=== PATIENT | male | born 1960 | race Caucasian/White ===

== ENCOUNTER 2022-04-24 15:51 | Inpatient (IN) ==
[2022-04-24 18:42] LABS: Appearance Urine Cloudy (Clear); Blood Urine Negative (Negative); Color Urine Orange; Epithelial Cell Urine Auto >30 /lpf (0-5); Glucose Urine UA Trace (Negative); Ketones Urine 1+ (Negative); Leukocyte Esterase Urine 1+ (Negative); Nitrite Urine Positive (Negative); Protein Urine 1+ (Negative); RBC Urine Automated 0-4 /hpf (0-4); Specific Gravity Urine 1.029 (1.000-1.030); Urobilinogen Urine Negative (Negative); pH Urine 5.5 (4.5-7.5)
[2022-04-24 18:46] LABS: Bilirubin Urine 3+ (Negative)
[2022-04-24 18:56] LABS: BUN Creatinine Ratio 12.6 (10-20); Calcium 9.6 mg/dl (8.5-10.1); Creatinine Clr Calc Pharmacy 47.1 ml/min; Est GFR (Non-African American) 41.4 ml/min; Potassium 4.8 mmol/L (3.5-5.1)
[2022-04-24 19:00] LABS: Albumin Globulin Ratio 1.5 (0.9-2); Albumin Level 4.8 gm/dl (3.4-5.0); Bilirubin,Total 3.2 mg/dl (0.2-1.0); Globulin 3.3 gm/dl (2.5-4.0); Total Protein 8.1 gm/dl (6.0-8.3)
[2022-04-24 19:20] LABS: Mucus Urine Present (None Prsent)
[2022-04-24 19:21] LABS: Cast Urine Automated >30 /lpf (0-5)
[2022-04-24 19:22] LABS: Calcium Oxalate Crystals Urine Present (None Prsent)
[2022-04-24 19:25] LABS: Amorphous Sediment Urine Present (None Prsent); Bacteria Urine Automated 1+ (Negative)
[2022-04-24] MEDS ORDERED: SODIUM CHLORIDE 0.9% 1000ML 1,000 ML IV STA (19:28)
[2022-04-24] MEDS ORDERED: ONDANSETRON INJ 2 MG/ML 2 ML VIAL IV STA (19:28)
[2022-04-24] MEDS ORDERED: MoRPHine SULFATE 4 MG/ML 1 ML CARP\\VIAL IV PRN (19:28)
[2022-04-24] MEDS ORDERED: PIPERACILLIN/TAZOBACTAM 4.5 GM/120 ML BAG IV ONE (19:30)
--- NOTE | 2022-04-24 19:43 | Emergency Department Note ---
Impression & Plan Acute pancreatitis, Abdominal pain, acute, epigastric, Abnormal LFTs, BEN (acute kidney injury) ED Provider Note NAME: JAMES AMARO AGE: 62 SEX: M : 1960 ARRIVES VIA: Walk-In INFORMANT: Patient, ED PROVIDER(S): Raffaele Harvey DO CHIEF COMPLAINT: Abdominal pain HPI: The patient is a 62-year-old male who presented to the emergency department for an evaluation of abdominal pain. The patient describes diffuse abdominal p ain which goes to his back. He states the symptoms started over the last 48 hours. He does not use significant amounts of alcohol. He has not been seen by his family doctor for the symptoms. He notices no fever but has had nausea. He denies having any black or bloody bowels. He said no surgery on his abdomen in the past. He denies having any swelling in the legs. He states pain is moderate to severe and worsens with ambulation as well as palpation over the upper abdomen. The patient still has his gallbladder. ROS: See above HPI for pertinent positives & negatives. A total of 10 systems reviewed and were otherwise negative. PAST MEDICAL HISTORY: See Below PAST SURGICAL HISTORY: See Below FAMILY HISTORY: See Below SOCIAL HISTORY: See Below HOME MEDICATIONS: See Below ALLERGIES: See Below VITALS: See Below PHYSICAL EXAMINATION: GENERAL: The patient is awake and alert. The patient is very anxious appearing and appears to be in significant pain. EYES: The conjunctivae are clear. The pupils are round and reactive. EARS, NOSE, MOUTH AND THROAT: The nose is without any evidence of any deformity. NECK: The neck is nontender and supple. RESPIRATORY: Normal respiratory effort is noted there is no evidence of wheezing rhonchi or rales CARDIOVASCULAR: Regular rate and rhythm noted there no murmurs rubs or gallops normal S1 normal S2. GASTROINTESTINAL: The abdomen is distended and diffusely tender. There is guarding in the upper abdomen. MUSCULOSKELETAL/EXTREMITIES: There is no evidence of gross deformity full range of motion is noted in the hips and shoulders. SKIN: There is no obvious evidence of any rash. There are no petechiae, pallor or cyanosis noted. NEUROLOGIC: Patient is awake alert and oriented x3. MEDICAL DECISION MAKING: The patient is a 62-year-old male who presented to the emergency department for an evaluation of abdominal pain. The patient had very significant abdominal pain and on physical exam appear to have guarding. The patient was found to have an elevated white blood cell count as well as abnormal labs that would suggest pancreatitis with a gallstone source. The patient CT did not show any signs of biliary pathology however significant pancreatitis was noted. Patient was treated with IV fluids and IV pain medication. He was also treated with IV antibiotics. On reevaluation he was only minimally improved. I discussed the patient's condition with the on-call [facility] hospitalist. They have agreed to evaluate the patient in the emergency department for further management and disposition. Likely the patient will require further work-up as well as pos sible evaluation by gastroenterology and/or surgery. Triage Nursing notes reviewed. Prior medical records reviewed Vital Signs: reviewed and remarkable for elevated blood pressure. Differential diagnosis: Etiologies such as appendicitis, diverticulitis, obstruction, inflammatory bowel disease, renal colic, PUD, biliary pathology, pancreatitis, mesenteric ischemia, aortic pathology, infections, genitourinary, UTI, perforated viscus, as well as others were entertained. ER treatment provided: See below Diagnostics interpreted by me: ECG: EKG was obtained in the emergency department. My interpretation is normal sinus rhythm at 85 bpm. There is no ectopy. There is no acute ST segment abnormalities noted. Cardiac Monitoring: An order was placed for continuous cardiac monitoring. The monitor shows a rate of 82 bpm with sinus rhythm. Laboratory studies: As stated above and show below. Imaging studies: See below Consultation(s): I discussed this case with Dr. Zavaleta who is on-call for the [facility] list group. Past Med/Surg History Medical History Hypertension Surgical History History of back surgery Social History Smoking Status: Never smoker marital status: Single Current Living Situation: Alone current occupational status: retired Feels Safe at Home: Yes Allergies Allergies Allergy/AdvReac Type Severity Reaction Status Date / Time amoxicillin [From Augmentin] Allergy angioedema Verified 04/24/22 20:38 clavulanic acid Allergy angioedema Verified 04/24/22 20:38 [From Augmentin] Home Meds Home Medications Medication Instructions Recorded Confirmed aspirin 81 mg tablet,delayed 81 mg PO QAM 09/04/20 04/24/22 release lisinopril 40 mg tablet 40 mg PO QAM 09/04/20 04/24/22 metoprolol succinate 50 mg 50 mg PO QAM 09/04/20 04/24/22 tablet,extended release 24 hr cyclobenzaprine 10 mg tablet 10 mg PO TID 04/24/22 04/24/22 Results & Data (ED) Vital Signs Vital Signs - 24 hr 04/24/22 16:29 04/24/22 19:27 04/24/22 20:21 Temperature 36.6 C 36.5 C Temperature Source Temporal Artery Scan Oral Pulse Rate 63 86 Pulse Rate [Apical] 91 H Pulse Rate from SpO2 Sensor Pulse Rhythm [Apical] Regular Respiratory Rate 20 20 Respiratory Effort / Characteristics Non-Labored Respiratory Depth Normal Shallow Blood Pressure 100/70 199/90 H Blood Pressure [Right Arm] 191/114 H Blood Pressure Mean 80 Blood Pressure Mean [Right Arm] 139 Pulse Oximetry 97 98 Oxygen Delivery Method Room Air Room Air Sepsis Recent Fever Within 48 Hours No Sepsis New/Unexplained Change in Mental Status No Sepsis Action Taken by Nursing No Action Required 04/24/22 20:33 04/24/22 19:27 04/24/22 19:30 Temperature Temperature Source Pulse Rate 94 H 92 H Pulse Rate [Apical] Pulse Rate from SpO2 Sensor 94 H 92 H Pulse Rhythm [Apical] Respiratory Rate 16 19 Respiratory Effort / Characteristics Respiratory Depth Blood Pressure Blood Pressure [Right Arm] Blood Pressure Mean Blood Pressure Mean [Right Arm] Pulse Oximetry 99 97 98 Oxygen Delivery Method Room Air Sepsis Recent Fever Within 48 Hours Sepsis New/Unexplained Change in Mental Status Sepsis Action Taken by Nursing 04/24/22 20:00 04/24/22 20:01 04/24/22 20:01 Temperature Temperature Source Pulse Rate 80 82 Pulse Rate [Apical] Pulse Rate from SpO2 Sensor 80 82 Pulse Rhythm [Apical] Respiratory Rate 19 17 Respiratory Effort / Characteristics Respiratory Depth Blood Pressure 199/90 H Blood Pressure [Right Arm] Blood Pressure Mean 126 Blood Pressure Mean [Right Arm] Pulse Oximetry 96 99 Oxygen Delivery Method Sepsis Recent Fever Within 48 Hours Sepsis New/Unexplained Change in Mental Status Sepsis Action Taken by Nursing 04/24/22 20:30 04/24/22 21:00 04/24/22 21:00 Temperature Temperature Source Pulse Rate 74 85 Pulse Rate [Apical] Pulse Rate from SpO2 Sensor 75 86 Pulse Rhythm [Apical] Respiratory Rate 17 21 Respiratory Effort / Characteristics Respiratory Depth Blood Pressure 151/90 H Blood Pressure [Right Arm] Blood Pressure Mean 110 Blood Pressure Mean [Right Arm] Pulse Oximetry 99 97 Oxygen Delivery Method Sepsis Recent Fever Within 48 Hours Sepsis New/Unexplained Change in Mental Status Sepsis Action Taken by Nursing 04/24/22 21:24 04/24/22 21:24 04/24/22 21:30 Temperature Temperature Source Pulse Rate 85 79 Pulse Rate [Apical] Pulse Rate from SpO2 Sensor 84 79 Pulse Rhythm [Apical] Respiratory Rate 14 16 Respiratory Effort / Characteristics Respiratory Depth Blood Pressure 150/92 H Blood Pressure [Right Arm] Blood Pressure Mean 111 Blood Pressure Mean [Right Arm] Pulse Oximetry 95 95 Oxygen Delivery Method Sepsis Recent Fever Within 48 Hours Sepsis New/Unexplained Change in Mental Status Sepsis Action Taken by Nursing 04/24/22 22:00 04/24/22 22:00 Temperature Temperature Source Pulse Rate 82 Pulse Rate [Apical] Pulse Rate from SpO2 Sensor 82 Pulse Rhythm [Apical] Respiratory Rate 13 Respiratory Effort / Characteristics Respiratory Depth Blood Pressure 199/97 H Blood Pressure [Right Arm] Blood Pressure Mean 131 Blood Pressure Mean [Right Arm] Pulse Oximetry 97 Oxygen Delivery Method Sepsis Recent Fever Within 48 Hours Sepsis New/Unexplained Change in Mental Status Sepsis Action Taken by [facility] Medications Current Medication List: was personally reviewed by me Laboratory Data Attestation: I reviewed the patient's lab results. Result diagrams: 04/24/22 18:15 04/24/22 18:15 Lab Results 04/24/22 04/24/22 04/24/22 Range/Units 16:33 18:15 18:15 WBC 12.09 H (4.8-10.8) K/ul RBC 6.50 H (4.63-6.08) M/uL Hgb 19.8 H (14.0-18.0) g/dl Hct 57.5 H (40.1-51.0) % MCV 88.5 (80.0-100.0) fL MCH 30.5 (25.0-34.0) pg MCHC 34.4 (32.0-36.0) g/dL RDW Std Deviation 42.4 (36.4-46.3) fL RDW Coeff of Fred 13.3 (11.5-14.5) % Plt Count 216 (130-400) K/uL MPV 11.6 (9.4-12.4) fL Immature Gran % (Auto) 0.5 % Neut % (Auto) 92.2 % Lymph % (Auto) 2.6 % [place] % (Auto) 4.3 % Eos % (Auto) 0.1 % Baso % (Auto) 0.3 % Neut # (Auto) 11.14 H (1.4-6.5) K/uL Lymph # (Auto) 0.32 L (1.2-3.4) K/uL [place] # (Auto) 0.52 (0.24-0.82) K/uL Eos # (Auto) 0.01 (0-0.50) K/uL Baso # (Auto) 0.04 (0-0.2) K/uL Immature Gran # (Auto) 0.06 H (0.00-0.02) K/uL PT INR APTT PTT Ratio Sodium 135 L (136-145) mmol/L Potassium 4.8 (3.5-5.1) mmol/L Chloride 99 (98-107) mmol/L Carbon Dioxide 19 L (21-32) mmol/L Anion Gap 17 H (3-11) BUN 22 (6-23) mg/dl Creatinine 1.74 H (0.6-1.4) mg/dl Est Cr Clr Drug Dosing 47.1 ml/min Est GFR ( Amer) 48.0 ml/min Est GFR (Non-Af Amer) 41.4 ml/min BUN/Creatinine Ratio 12.6 (10-20) Glucose 237 H (70-99(Fasting)) mg/dl Calcium 9.6 (8.5-10.1) mg/dl Magnesium 2.0 (1.7-2.4) mg/dl Total Bilirubin 3.2 H (0.2-1.0) mg/dl Direct Bilirubin (0-0.2) mg/dl AST 306 H (13-39) U/L ALT 684 H (7-52) U/L Alkaline Phosphatase 192 H (34-104) U/L Troponin I High Sens (0-20) pg/ml Total Protein 8.1 (6.0-8.3) gm/dl Albumin 4.8 (3.4-5.0) gm/dl Globulin 3.3 (2.5-4.0) gm/dl Albumin/Globulin Ratio 1.5 (0.9-2) Triglycerides (0-150) mg/dl Lipase 2336 H (11-82) U/L Urine Color Urine Appearance (Clear) Urine pH (4.5-7.5) Ur Specific [place] (1.000-1.030) Urine Protein (Negative) Urine Glucose (UA) (Negative) Urine Ketones (Negative) Urine Blood (Negative) Urine Nitrite (Negative) Urine Bilirubin (Negative) Urine Urobilinogen (Negative) Ur Leukocyte Esterase (Negative) Urine WBC (Auto) (0-5) /hpf Urine RBC (Auto) (0-4) /hpf U Hyaline Cast (Auto) (0-5) /lpf U Epithel Cells (Auto) (0-5) /lpf Urine Bacteria (Auto) (Negative) Calcium Oxalate Crystal (None Prsent) Amorphous Sediment (None Prsent) WBC Casts (0) /lpf Urine Mucus (None Prsent) SARS-CoV-2, RNA, NAAT (NEGATIVE) 04/24/22 04/24/22 04/24/22 Range/Units 18:15 20:30 21:04 WBC (4.8-10.8) K/ul RBC (4.63-6.08) M/uL Hgb (14.0-18.0) g/dl Hct (40.1-51.0) % MCV (80.0-100.0) fL MCH (25.0-34.0) pg MCHC (32.0-36.0) g/dL RDW Std Deviation (36.4-46.3) fL RDW Coeff of Fred (11.5-14.5) % Plt Count (130-400) K/uL MPV (9.4-12.4) fL Immature Gran % (Auto) % Neut % (Auto) % Lymph % (Auto) % [place] % (Auto) % Eos % (Auto) % Baso % (Auto) % Neut # (Auto) (1.4-6.5) K/uL Lymph # (Auto) (1.2-3.4) K/uL [place] # (Auto) (0.24-0.82) K/uL Eos # (Auto) (0-0.50) K/uL Baso # (Auto) (0-0.2) K/uL Immature Gran # (Auto) (0.00-0.02) K/uL PT Cancelled INR Cancelled APTT Cancelled PTT Ratio Cancelled Sodium (136-145) mmol/L Potassium (3.5-5.1) mmol/L Chloride (98-107) mmol/L Carbon Dioxide (21-32) mmol/L Anion Gap (3-11) BUN (6-23) mg/dl Creatinine (0.6-1.4) mg/dl Est Cr Clr Drug Dosing ml/min Est GFR ( Amer) ml/min Est GFR (Non-Af Amer) ml/min BUN/Creatinine Ratio (10-20) Glucose (70-99(Fasting)) mg/dl Calcium (8.5-10.1) mg/dl Magnesium (1.7-2.4) mg/dl Total Bilirubin (0.2-1.0) mg/dl Direct Bilirubin (0-0.2) mg/dl AST (13-39) U/L ALT (7-52) U/L Alkaline Phosphatase (34-104) U/L Troponin I High Sens (0-20) pg/ml Total Protein (6.0-8.3) gm/dl Albumin (3.4-5.0) gm/dl Globulin (2.5-4.0) gm/dl Albumin/Globulin Ratio (0.9-2) Triglycerides (0-150) mg/dl Lipase (11-82) U/L Urine Color [place] Urine Appearance Cloudy A (Clear) Urine pH 5.5 (4.5-7.5) Ur Specific [place] 1.029 (1.000-1.030) Urine Protein 1+ H (Negative) Urine Glucose (UA) Trace H (Negative) Urine Ketones 1+ H (Negative) Urine Blood Negative (Negative) Urine Nitrite Positive A (Negative) Urine Bilirubin 3+ H (Negative) Urine Urobilinogen Negative (Negative) Ur Leukocyte Esterase 1+ H (Negative) Urine WBC (Auto) 10-30 H (0-5) /hpf Urine RBC (Auto) 0-4 (0-4) /hpf U Hyaline Cast (Auto) >30 H (0-5) /lpf U Epithel Cells (Auto) >30 H (0-5) /lpf Urine Bacteria (Auto) 1+ H (Negative) Calcium Oxalate Crystal Present A (None Prsent) Amorphous Sediment Present A (None Prsent) WBC Casts 10-20 H (0) /lpf Urine Mucus Present A (None Prsent) SARS-CoV-2, RNA, NAAT NEGATIVE (NEGATIVE) 04/24/22 04/24/22 Range/Units 21:04 21:42 WBC (4.8-10.8) K/ul RBC (4.63-6.08) M/uL Hgb (14.0-18.0) g/dl Hct (40.1-51.0) % MCV (80.0-100.0) fL MCH (25.0-34.0) pg MCHC (32.0-36.0) g/dL RDW Std Deviation (36.4-46.3) fL RDW Coeff of Fred (11.5-14.5) % Plt Count (130-400) K/uL MPV (9.4-12.4) fL Immature Gran % (Auto) % Neut % (Auto) % Lymph % (Auto) % [place] % (Auto) % Eos % (Auto) % Baso % (Auto) % Neut # (Auto) (1.4-6.5) K/uL Lymph # (Auto) (1.2-3.4) K/uL [place] # (Auto) (0.24-0.82) K/uL Eos # (Auto) (0-0.50) K/uL Baso # (Auto) (0-0.2) K/uL Immature Gran # (Auto) (0.00-0.02) K/uL PT 10.9 INR 1.0 APTT 24.0 PTT Ratio 0.9 Sodium (136-145) mmol/L Potassium (3.5-5.1) mmol/L Chloride (98-107) mmol/L Carbon Dioxide (21-32) mmol/L Anion Gap (3-11) BUN (6-23) mg/dl Creatinine (0.6-1.4) mg/dl Est Cr Clr Drug Dosing ml/min Est GFR ( Amer) ml/min Est GFR (Non-Af Amer) ml/min BUN/Creatinine Ratio (10-20) Glucose (70-99(Fasting)) mg/dl Calcium (8.5-10.1) mg/dl Magnesium (1.7-2.4) mg/dl Total Bilirubin (0.2-1.0) mg/dl Direct Bilirubin 1.1 H (0-0.2) mg/dl AST (13-39) U/L ALT (7-52) U/L Alkaline Phosphatase (34-104) U/L Troponin I High Sens 11.5 (0-20) pg/ml Total Protein (6.0-8.3) gm/dl Albumin (3.4-5.0) gm/dl Globulin (2.5-4.0) gm/dl Albumin/Globulin Ratio (0.9-2) Triglycerides 95 (0-150) mg/dl Lipase (11-82) U/L Urine Color Urine Appearance (Clear) Urine pH (4.5-7.5) Ur Specific [place] (1.000-1.030) Urine Protein (Negative) Urine Glucose (UA) (Negative) Urine Ketones (Negative) Urine Blood (Negative) Urine Nitrite (Negative) Urine Bilirubin (Negative) Urine Urobilinogen (Negative) Ur Leukocyte Esterase (Negative) Urine WBC (Auto) (0-5) /hpf Urine RBC (Auto) (0-4) /hpf U Hyaline Cast (Auto) (0-5) /lpf U Epithel Cells (Auto) (0-5) /lpf Urine Bacteria (Auto) (Negative) Calcium Oxalate Crystal (None Prsent) Amorphous Sediment (None Prsent) WBC Casts (0) /lpf Urine Mucus (None Prsent) SARS-CoV-2, RNA, NAAT (NEGATIVE) Administered Medications Lactated Ringer's (Lr) 1,000 mls @ 200 mls/hr IV .Q5H ONE Stop: 04/25/22 01:03 Last Admin: 04/24/22 20:21 Dose: 200 mls/hr Documented By: GUADALUPE Morphine Sulfate (Morphine Sulfate 4 Mg/Ml 1 Ml Carp\Vial) 4 mg IV Q15M PRN PRN Reason: Pain Stop: 05/08/22 19:27 Last Admin: 04/24/22 19:40 Dose: 4 mg Documented By: GUADALUPE Discontinued Medications Hydromorphone HCl (Hydromorphone Inj 0.5 Mg/0.5 Ml Syr) 0.5 mg IV NOW STA Stop: 04/24/22 21:18 Last Admin: 04/24/22 21:25 Dose: 0.5 mg Documented By: GUADALUPE Sodium Chloride (Nss 1000ml) 1,000 mls @ 999 mls/hr IV .Q1H1M STA Stop: 04/24/22 20:28 Last Infusion: 04/24/22 21:07 Dose: 0 mls/hr Documented By: Admin: 04/24/22 19:39 Dose: 999 mls/hr Documented By: GUADALUPE Piperacillin Sod/Tazobactam Sod (Zosyn) 4.5 gm in 120 mls @ 240 mls/hr IV NOW ONE Stop: 04/24/22 19:59 Last Infusion: 04/24/22 20:23 Dose: 0 mls/hr Documented By: Admin: 04/24/22 19:39 Dose: 240 mls/hr Documented By: GUADALUPE Metoprolol Tartrate (Metoprolol Tartrate 1 Mg/Ml Vial) 5 mg IV NOW STA Stop: 04/24/22 20:04 Last Admin: 04/24/22 20:21 Dose: 5 mg Documented By: GUADALUPE Ondansetron HCl (Ondansetron Inj 2 Mg/Ml 2 Ml Vial) 4 mg IV NOW STA Stop: 04/24/22 19:29 Last Admin: 04/24/22 19:39 Dose: 4 mg Documented By: GUADALUPE Imaging Data Radiologist's Impression: Abdomen/Pelvis CT 04/24/22 19:28 CT abd pelvis wo con CLINICAL HISTORY: abd pain TECHNIQUE: Helical axial images of the abdomen and pelvis were obtained. Automated dose lowering techniques and/or adjustment according to patient size were utilized for this exam. This exam was performed without intravenous contrast. CT DOSE: 646.38 mGy.cm COMPARISON: None available at the time of this dictation. FINDINGS: Lower chest: Bibasilar atelectasis versus scarring is seen. Liver: Unremarkable. No focal lesions are seen. Gallbladder and biliary tree: No calcified gallstones. Normal caliber wall. No intra- or extrahepatic biliary ductal dilation. Pancreas: Peripancreatic stranding is seen. Edema is seen in the distal pancreas. Spleen: Unremarkable. Adrenals: Unremarkable. Kidneys and ureters: Perinephric stranding is noted bilaterally. Nonobstructive nephrolithiasis is seen. Bladder: Unremarkable. Reproductive organs: Prostatic calcifications are seen which may represent prior hemorrhage or granulomatous disease. Bowel: Diverticulosis is seen without evidence of diverticulitis. The appendix is normal. There is a small hiatal hernia. Lymph nodes Retroperitoneal: Subcentimeter lymph nodes are noted. Pelvic: Unremarkable. Mesenteric: Unremarkable. Peritoneum: Prominent fat stranding is seen about the pancreas. There is a small amount of free fluid in the abdomen. Vessels: Atherosclerotic calcifications are seen. Abdominal wall: Unremarkable. Bones: Degenerative changes in the visualized spine. IMPRESSION: Findings are compatible with acute pancreatitis. No acute peripancreatic fluid collections are seen. ACT 112: Negative or not required by law. Electronically signed by: Pedro Tellez M.D. 04/24/2022 8:05 PM Chest X-Ray 04/24/22 19:29 XR chest 1V portable CLINICAL HISTORY: abd TECHNIQUE: Single frontal radiograph of the chest was obtained. Comparison: Comparison is made to chest radiograph 09/04/2020 FINDINGS: No lines and tubes are seen. The cardiomediastinal silhouette is normal. Lungs are underinflated but clear. Focal atelectasis at the left lower lung. No evidence of pleural effusion or pneumothorax. IMPRESSION: No acute chest disease. ACT 112: Negative or not required by law. Electronically signed by: Pedro Tellez M.D. 04/24/2022 7:45 PM Discharge Plan Visit Data Chief Complaint: Abdominal Pain Stated Complaint: SEVERE ABD PAIN, VOMITTING, DIARRHEA ED Provider: Raffaele Harvey Discharge Problem: Acute pancreatitis, Abdominal pain, acute, epigastric, Abnormal LFTs, BEN (acute kidney injury) Patient Disposition: Admitted As Inpatient Discharge Instructions Interventions: ED Discharge Assessment Last Done: 04/24/22 22:18 Forms Stand Alone Forms: [facility] Prescriptions Prescriptions: No Action metoprolol succinate 50 mg tablet extended release 24 hr 50 mg PO QAM aspirin 81 mg tablet,delayed release (DR/EC) 81 mg PO QAM lisinopril 40 mg tablet 40 mg PO QAM cyclobenzaprine 10 mg Tablet 10 mg PO TID Referrals Referrals: Jerome Schultz DO [Primary Care Provider] -
--- NOTE | 2022-04-24 19:47 | XRay Report ---
XR chest 1V portable CLINICAL HISTORY: abd TECHNIQUE: Single frontal radiograph of the chest was obtained. Comparison: Comparison is made to chest radiograph 09/04/2020 FINDINGS: No lines and tubes are seen. The cardiomediastinal silhouette is normal. Lungs are underinflated but clear. Focal atelectasis at the left lower lung. No evidence of pleural effusion or pneumothorax. IMPRESSION: No acute chest disease. ACT 112: Negative or not required by law. Electronically signed by: Pedro Tellez M.D. 04/24/2022 7:45 PM
[2022-04-24] MEDS ORDERED: METOPROLOL TARTRATE 1 MG/ML VIAL IV STA (20:03)
[2022-04-24] MEDS ORDERED: LACTATED RINGER'S 1,000 ML IV ONE (20:04)
--- NOTE | 2022-04-24 20:07 | CT Scan Report ---
CT abd pelvis wo con CLINICAL HISTORY: abd pain TECHNIQUE: Helical axial images of the abdomen and pelvis were obtained. Automated dose lowering tech niques and/or adjustment according to patient size were utilized for this exam. This exam was perfor med without intravenous contrast. CT DOSE: 646.38 mGy.cm COMPARISON: None available at the time of this dictation. FINDINGS: Lower chest: Bibasilar atelectasis versus scarring is seen. Liver: Unremarkable. No focal lesions are seen. Gallbladder and biliary tree: No calcified gallstones. Normal caliber wall. No intra- or extrahepatic biliary ductal dilation. Pancreas: Peripancreatic stranding is seen. Edema is seen in the distal pancreas. Spleen: Unremarkable. Adrenals: Unremarkable. Kidneys and ureters: Perinephric stranding is noted bilaterally. Nonobstructive nephrolithiasis is se en. Bladder: Unremarkable. Reproductive organs: Prostatic calcifications are seen which may represent prior hemorrhage or granul omatous disease. Bowel: Diverticulosis is seen without evidence of diverticulitis. The appendix is normal. There is a small hiatal hernia. Lymph nodes Retroperitoneal: Subcentimeter lymph nodes are noted. Pelvic: Unremarkable. Mesenteric: Unremarkable. Peritoneum: Prominent fat stranding is seen about the pancreas. There is a small amount of free fluid in the abdomen. Vessels: Atherosclerotic calcifications are seen. Abdominal wall: Unremarkable. Bones: Degenerative changes in the visualized spine. IMPRESSION: Findings are compatible with acute pancreatitis. No acute peripancreatic fluid collections are seen. ACT 112: Negative or not required by law. Electronically signed by: Pedro Tellez M.D. 04/24/2022 8:05 PM
[2022-04-24 20:18] LABS: Hematocrit (blood only) 57.5 % (40.1-51.0); Hemoglobin 19.8 g/dl (14.0-18.0); Mean Corpuscular Hemoglobin 30.5 pg (25.0-34.0); Mean Corpuscular Hgb Conc 34.4 g/dL (32.0-36.0); Mean Corpuscular Volume 88.5 fL (80.0-100.0); Mean Platelet Volume 11.6 fL (9.4-12.4); Platelet Count 216 K/uL (130-400); RDW Coefficient of Variation 13.3 % (11.5-14.5); RDW Standard Deviation 42.4 fL (36.4-46.3); White Blood Count 12.09 K/ul (4.8-10.8)
[2022-04-24 20:19] LABS: Basophils # (auto) 0.04 K/uL (0-0.2); Basophils % (auto) 0.3 %; Eosinophils # (auto) 0.01 K/uL (0-0.50); Eosinophils % (auto) 0.1 %; Immature Granulocytes # (auto) 0.06 K/uL (0.00-0.02); Immature Granulocytes % (auto) 0.5 %; Lymphocytes # (auto) 0.32 K/uL (1.2-3.4); Lymphocytes % (auto) 2.6 %; Monocytes # (auto) 0.52 K/uL (0.24-0.82); Monocytes % (auto) 4.3 %; Neutrophils # (auto) 11.14 K/uL (1.4-6.5); Neutrophils % (auto) 92.2 %
[2022-04-24] MEDS ORDERED: SODIUM CHLORIDE 0.9% 1000ML 1,000 ML IV ONE (20:51)
--- NOTE | 2022-04-24 21:13 | History & Physical Report ---
Date of Service April 24, 2022 Assessment & Plan (1) Acute pancreatitis: Plan: Rule out choledocholithiasis given abnormal LFTs Complicated UTI, no overt sepsis for now Hypertension, elevated secondary illness ARF secondary to illness prediabetes, remote hemoglobin A1c of 5.7 from January 2018 GMF IVF, bowel rest, analgesia MRCP GI consult Re: Pancreatitis Urine CS, Cefepime Monitor creatinine response to IVF Appropriate to hold lisinopril until creatinine back to baseline Update hemoglobin A1c DVT prophylaxis per Heparin subcu Full code Text document was generated using [employer] voice recognition software. It may contain grammatical or spelling errors. Kindly contact undersigned for clarification of any documentation item in question. History of Present Illness Chief Complaint: Abdominal pain Primary Care Provider: Jerome Schultz DO History obtained from patient and records. Medical history significant for hypertension, H. pylori gastritis, prediabetes. Last confinement 2012 for UGI B. PUD seen on EGD. Patient discharged on PPI. 2 nights ago, patient noted achy epigastric pain followed by nausea vomiting symptoms after a fatty meal. No prior episodes. No chest pain, no shortness of breath. Last alcohol intake was 2 weeks ago. Patient denies dysuria. Some chills noted. Poor appetite. Patient consulted ER. IV Zosyn administered at the ER. 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 Allergies Allergy/AdvReac Type Severity Reaction Status Date / Time amoxicillin [From Augmentin] Allergy angioedema Verified 04/24/22 20:38 clavulanic acid Allergy angioedema Verified 04/24/22 20:38 [From Augmentin] Home Medications Medication Instructions Recorded Confirmed Type aspirin 81 mg tablet,delayed 81 mg PO QAM 09/04/20 04/24/22 History release lisinopril 40 mg tablet 40 mg PO QAM 09/04/20 04/24/22 History metoprolol succinate 50 mg 50 mg PO QAM 09/04/20 04/24/22 History tablet,extended release 24 hr cyclobenzaprine 10 mg tablet 10 mg PO TID 04/24/22 04/24/22 History Past Med/Surg History Medical History Hypertension Surgical History History of back surgery Social History Smoking Status: Never smoker Second Hand Exposure: No; Do You Dip or Chew Tobacco: No; Tobacco Cessation Education Requested by Patient: No Hx Alcohol Use: Yes Hx Substance Use: No Preferred Language: Turkmen Communication Ability: Effective Airplane Pilot Required: No Beliefs That Will Affect Care: None marital status: Single Current Living Situation: Alone current occupational status: retired Other Information That Helps Us Care for You: No Feels Safe at Home: Yes Safety Concerns: Feels Safe At This Time Assistive Devices: Denture - Upper and Glasses Review of Systems Review of Systems: As per HPI, all other systems reviewed and negative Physical Exam Physical Exam: GENERAL: Pleasant, slightly uncomfortable, no respiratory distress SKIN: Normal color, warm HEENT: [place] palpebral conjunctivae, no ptosis, dry buccal mucosa NECK : Supple, no tenderness CHEST : CTA, no tenderness HEART : RRR, no obvious murmurs ABDOMEN: Some distention, epigastric tenderness EXTREMITIES : No LE swelling/tenderness, no other conspicuous deformities noted NEUROLOGIC : Coherent, no facial asymmetry, no other gross focality Results & Data Results & Data ([facility]) Vital Signs (Past 12 Hours) Vital Signs Temp Pulse Pulse Resp BP BP Pulse Ox 04/24/22 21:00 85 21 97 04/24/22 21:00 151/90 H 04/24/22 20:30 74 17 99 04/24/22 20:01 199/90 H 04/24/22 20:01 82 17 99 04/24/22 20:00 80 19 96 04/24/22 19:30 92 H 19 98 04/24/22 19:27 94 H 16 97 04/24/22 20:33 99 04/24/22 20:21 86 199/90 H 04/24/22 19:27 36.5 C 91 H 20 191/114 H 98 04/24/22 16:29 36.6 C 63 20 100/70 97 O2 Del Method 04/24/22 21:00 04/24/22 21:00 04/24/22 20:30 04/24/22 20:01 04/24/22 20:01 04/24/22 20:00 04/24/22 19:30 04/24/22 19:27 04/24/22 20:33 Room Air 04/24/22 20:21 04/24/22 19:27 Room Air 04/24/22 16:29 Room Air Laboratory Results Laboratory Results WBC 12.09 K/ul (4.8-10.8) H 04/24/22 18:15 RBC 6.50 M/uL (4.63-6.08) H 04/24/22 18:15 Hgb 19.8 g/dl (14.0-18.0) H 04/24/22 18:15 Hct 57.5 % (40.1-51.0) H 04/24/22 18:15 MCV 88.5 fL (80.0-100.0) 04/24/22 18:15 MCH 30.5 pg (25.0-34.0) 04/24/22 18:15 MCHC 34.4 g/dL (32.0-36.0) 04/24/22 18:15 RDW Std Deviation 42.4 fL (36.4-46.3) 04/24/22 18:15 RDW Coeff of Fred 13.3 % (11.5-14.5) 04/24/22 18:15 Plt Count 216 K/uL (130-400) 04/24/22 18:15 MPV 11.6 fL (9.4-12.4) 04/24/22 18:15 Immature Gran % (Auto) 0.5 % 04/24/22 18:15 Neut % (Auto) 92.2 % 04/24/22 18:15 Lymph % (Auto) 2.6 % 04/24/22 18:15 [place] % (Auto) 4.3 % 04/24/22 18:15 Eos % (Auto) 0.1 % 04/24/22 18:15 Baso % (Auto) 0.3 % 04/24/22 18:15 Neut # (Auto) 11.14 K/uL (1.4-6.5) H 04/24/22 18:15 Lymph # (Auto) 0.32 K/uL (1.2-3.4) L 04/24/22 18:15 [place] # (Auto) 0.52 K/uL (0.24-0.82) 04/24/22 18:15 Eos # (Auto) 0.01 K/uL (0-0.50) 04/24/22 18:15 Baso # (Auto) 0.04 K/uL (0-0.2) 04/24/22 18:15 Immature Gran # (Auto) 0.06 K/uL (0.00-0.02) H 04/24/22 18:15 Sodium 135 mmol/L (136-145) L 04/24/22 18:15 Potassium 4.8 mmol/L (3.5-5.1) 04/24/22 18:15 Chloride 99 mmol/L (98-107) 04/24/22 18:15 Carbon Dioxide 19 mmol/L (21-32) L 04/24/22 18:15 Anion Gap 17 (3-11) H 04/24/22 18:15 BUN 22 mg/dl (6-23) 04/24/22 18:15 Creatinine 1.74 mg/dl (0.6-1.4) H 04/24/22 18:15 Est Cr Clr Drug Dosing 47.1 ml/min 04/24/22 18:15 Est GFR ( Amer) 48.0 ml/min 04/24/22 18:15 Est GFR (Non-Af Amer) 41.4 ml/min 04/24/22 18:15 BUN/Creatinine Ratio 12.6 (10-20) 04/24/22 18:15 Glucose 237 mg/dl (70-99(Fasting)) H 04/24/22 18:15 Calcium 9.6 mg/dl (8.5-10.1) 04/24/22 18:15 Magnesium 2.0 mg/dl (1.7-2.4) 04/24/22 16:33 Total Bilirubin 3.2 mg/dl (0.2-1.0) H 04/24/22 18:15 AST 306 U/L (13-39) H 04/24/22 18:15 ALT 684 U/L (7-52) H 04/24/22 18:15 Alkaline Phosphatase 192 U/L (34-104) H 04/24/22 18:15 Total Protein 8.1 gm/dl (6.0-8.3) 04/24/22 18:15 Albumin 4.8 gm/dl (3.4-5.0) 04/24/22 18:15 Globulin 3.3 gm/dl (2.5-4.0) 04/24/22 18:15 Albumin/Globulin Ratio 1.5 (0.9-2) 04/24/22 18:15 Lipase 2336 U/L (11-82) H 04/24/22 18:15 Urine Color [place] 04/24/22 18:15 Urine Appearance Cloudy (Clear) A 04/24/22 18:15 Urine pH 5.5 (4.5-7.5) 04/24/22 18:15 Ur Specific [place] 1.029 (1.000-1.030) 04/24/22 18:15 Urine Protein 1+ (Negative) H 04/24/22 18:15 Urine Glucose (UA) Trace (Negative) H 04/24/22 18:15 Urine Ketones 1+ (Negative) H 04/24/22 18:15 Urine Blood Negative (Negative) 04/24/22 18:15 Urine Nitrite Positive (Negative) A 04/24/22 18:15 Urine Bilirubin 3+ (Negative) H 04/24/22 18:15 Urine Urobilinogen Negative (Negative) 04/24/22 18:15 Ur Leukocyte Esterase 1+ (Negative) H 04/24/22 18:15 Urine WBC (Auto) 10-30 /hpf (0-5) H 04/24/22 18:15 Urine RBC (Auto) 0-4 /hpf (0-4) 04/24/22 18:15 U Hyaline Cast (Auto) >30 /lpf (0-5) H 04/24/22 18:15 U Epithel Cells (Auto) >30 /lpf (0-5) H 04/24/22 18:15 Urine Bacteria (Auto) 1+ (Negative) H 04/24/22 18:15 Calcium Oxalate Crystal Present (None Prsent) A 04/24/22 18:15 Amorphous Sediment Present (None Prsent) A 04/24/22 18:15 WBC Casts 10-20 /lpf (0) H 04/24/22 18:15 Urine Mucus Present (None Prsent) A 04/24/22 18:15 SARS-CoV-2, RNA, NAAT NEGATIVE (NEGATIVE) 04/24/22 20:30 Impressions Abdomen/Pelvis CT 04/24/22 19:28 CT abd pelvis wo con CLINICAL HISTORY: abd pain TECHNIQUE: Helical axial images of the abdomen and pelvis were obtained. Automated dose lowering techniques and/or adjustment according to patient size were utilized for this exam. This exam was performed without intravenous contrast. CT DOSE: 646.38 mGy.cm COMPARISON: None available at the time of this dictation. FINDINGS: Lower chest: Bibasilar atelectasis versus scarring is seen. Liver: Unremarkable. No focal lesions are seen. Gallbladder and biliary tree: No calcified gallstones. Normal caliber wall. No intra- or extrahepatic biliary ductal dilation. Pancreas: Peripancreatic stranding is seen. Edema is seen in the distal pancreas. Spleen: Unremarkable. Adrenals: Unremarkable. Kidneys and ureters: Perinephric stranding is noted bilaterally. Nonobstructive nephrolithiasis is seen. Bladder: Unremarkable. Reproductive organs: Prostatic calcifications are seen which may represent prior hemorrhage or granulomatous disease. Bowel: Diverticulosis is seen without evidence of diverticulitis. The appendix is normal. There is a small hiatal hernia. Lymph nodes Retroperitoneal: Subcentimeter lymph nodes are noted. Pelvic: Unremarkable. Mesenteric: Unremarkable. Peritoneum: Prominent fat stranding is seen about the pancreas. There is a small amount of free fluid in the abdomen. Vessels: Atherosclerotic calcifications are seen. Abdominal wall: Unremarkable. Bones: Degenerative changes in the visualized spine. IMPRESSION: Findings are compatible with acute pancreatitis. No acute peripancreatic fluid collections are seen. ACT 112: Negative or not required by law. Electronically signed by: Pedro Tellez M.D. 04/24/2022 8:05 PM Chest X-Ray 04/24/22 19:29 XR chest 1V portable CLINICAL HISTORY: abd TECHNIQUE: Single frontal radiograph of the chest was obtained. Comparison: Comparison is made to chest radiograph 09/04/2020 FINDINGS: No lines and tubes are seen. The cardiomediastinal silhouette is normal. Lungs are underinflated but clear. Focal atelectasis at the left lower lung. No evidence of pleural effusion or pneumothorax. IMPRESSION: No acute chest disease. ACT 112: Negative or not required by law. Electronically signed by: Pedro Tellez M.D. 04/24/2022 7:45 PM Diagnostic Findings EKG as per my interpretation :Rate 85, NSR, LAD, LAFB, ischemia (1) Acute pancreatitis Acute pancreatitis complication: unspecified Pancreatitis type: unspecified pancreatitis type Qualified Code(s): K85.90 - Acute pancreatitis without necrosis or infection, unspecified
[2022-04-24] MEDS ORDERED: ACETAMINOPHEN 500 MG TAB PO PRN (21:17)
[2022-04-24] MEDS ORDERED: HYDROmorphone INJ 0.5 MG/0.5 ML SYR IV STA (21:17)
[2022-04-24] MEDS ORDERED: PROMETHAZINE HCL 12.5 MG in SODIUM CHLORIDE 0.9% 50 ML IV PRN (21:17)
[2022-04-24 21:41] LABS: Bilirubin Direct 1.1 mg/dl (0-0.2)
[2022-04-24 21:45] LABS: Troponin I High Sensitivity 11.5 pg/ml (0-20)
[2022-04-24 22:09] LABS: Partial Thromboplastin Ratio 0.9; Prothrombin Time 10.9 Seconds (9.0-12.0)
[2022-04-24] MEDS: HYDROmorphone INJ 0.5 MG/0.5 ML SYR IV PRN (23:24)
[2022-04-25] MEDS: HEPARIN SOD 5,000 UNIT/0.5 ML VIAL SQ SCH ×2 (00:18→05:12)
[2022-04-25] MEDS ORDERED: METOPROLOL SUCC 50MG EXT REL TAB PO SCH ×2 (01:45→09:00)
[2022-04-25] MEDS: HYDROmorphone INJ 0.5 MG/0.5 ML SYR IV PRN ×4 (02:10→21:43)
[2022-04-25] MEDS: CEFEPIME 2,000 MG in SYRINGE 0 ML IV SCH (05:02)
[2022-04-25] MEDS: LACTATED RINGER'S 1,000 ML IV SCH ×5 (05:06→23:11)
[2022-04-25 08:00] LABS: Hematocrit (blood only) 48.9 % (40.1-51.0); Hemoglobin 16.4 g/dl (14.0-18.0); Mean Corpuscular Hemoglobin 30.4 pg (25.0-34.0); Mean Corpuscular Hgb Conc 33.5 g/dL (32.0-36.0); Mean Corpuscular Volume 90.6 fL (80.0-100.0); Mean Platelet Volume 11.4 fL (9.4-12.4); Platelet Count 222 K/uL (130-400); RDW Coefficient of Variation 13.5 % (11.5-14.5); RDW Standard Deviation 44.6 fL (36.4-46.3); White Blood Count 15.29 K/ul (4.8-10.8)
[2022-04-25] MEDS ORDERED: METOPROLOL SUCC 25MG EXT REL TAB PO STA (08:02)
--- NOTE | 2022-04-25 08:04 | Magnetic Resonance Report ---
MR MRCP HISTORY: 62 years-old Male abd pain, abn lfts acutely elevated LFTs COMPARISON: CT abdomen and pelvis of same day TECHNIQUE: MRCP was obtained without the use of IV contrast utilizing institutional protocol. FINDINGS: Interstitial and peripancreatic edema with free fluid within the lesser sac tracking along the nicky lic gutters and into the central mesentery. Trace left pleural effusion. The study is motion degraded . Mild nonspecific wall thickening of the distal esophagus. No bowel obstruction or bowel wall thicke kiko. Aorta and IVC are unremarkable. No lymphadenopathy identified. There are a few T2 hyperintense foci noted within the left kidney measuring up to 1.2 cm suggestive of probable cysts. There is no hy dronephrosis. Colonic diverticulosis. Tiny gallstones are noted within the gallbladder neck. There is no gallbladder wall thickening. The c ommon bile duct is normal in caliber measuring 4 mm. No choledocholithiasis identified. No pancreatic ductal dilation identified. Filling defect noted within the superior mesenteric vein. Suboptimal vis ualization of the splenic vein. IMPRESSION: 1. Motion degraded exam. 2. Acute pancreatitis. No evidence of pancreatic ductal dilation or acute peripancreatic fluid collec tion. 3. 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 The splenic vein is not well visualized. 4. Cholelithiasis without evidence of acute cholecystitis, choledocholithiasis or biliary ductal dila tion. ACT 112: Negative or not required by law. The above report was generated using voice recognition software. It may contain grammatical, syntax o r spelling errors. Electronically signed by: Finn Lagos M.D. 04/25/2022 8:03 AM
[2022-04-25 08:29] LABS: Basophils # (auto) 0.03 K/uL (0-0.2); Basophils % (auto) 0.2 %; Immature Granulocytes # (auto) 0.08 K/uL (0.00-0.02); Immature Granulocytes % (auto) 0.5 %; Lymphocytes # (auto) 0.37 K/uL (1.2-3.4); Lymphocytes % (auto) 2.4 %; Monocytes # (auto) 0.92 K/uL (0.24-0.82); Neutrophils # (auto) 13.89 K/uL (1.4-6.5); Neutrophils % (auto) 90.9 %; Toxic Vacuolation 1+
[2022-04-25 08:36] LABS: Albumin Globulin Ratio 1.6 (0.9-2); Albumin Level 3.9 gm/dl (3.4-5.0); BUN Creatinine Ratio 16.8 (10-20); Bilirubin,Total 2.9 mg/dl (0.2-1.0); Calcium 7.9 mg/dl (8.5-10.1); Creatinine Clr Calc Pharmacy 43.4 ml/min; Est GFR (African American) 43.1 ml/min; Est GFR (Non-African American) 37.2 ml/min; Globulin 2.4 gm/dl (2.5-4.0); Potassium 4.8 mmol/L (3.5-5.1); Total Protein 6.3 gm/dl (6.0-8.3)
[2022-04-25] MEDS ORDERED: ASPIRIN 81 MG ECTAB PO SCH (09:00)
--- NOTE | 2022-04-25 09:03 | Electrocardiogram Report ---
Test Reason : Blood Pressure : / mmHG Vent. Rate : 085 BPM Atrial Rate : 085 BPM P-R Int : 158 ms QRS Dur : 104 ms QT Int : 380 ms P-R-T Axes : 060 -31 026 degrees QTc Int : 452 ms Normal sinus rhythm Left atrial enlargement Left anterior fascicular block Abnormal ECG When compared with ECG of 04-SEP-2020 07:47, No significant change was found Confirmed by J Luis Wong ([id number]) on 04/25/2022 9:03:12 AM Referred By: REFERRED SELF Confirmed By:J Luis Wong
[2022-04-25 09:36] LABS: Estimated Average Glucose 117 mg/dl; Hemoglobin A1C 5.7 % (4.5-5.6)
--- NOTE | 2022-04-25 10:12 | Gastrointestinal Consultation ---
Date of Consultation April 25, 2022 Assessment & Plan (1) Acute pancreatitis: 62 year old male admitted w/ abd pain, nausea, vomiting. Imaging consistent with a pancreatitis, gallstones and question of a superior mesenteric vein thrombus NPO for bowel rest Endoscopic evaluation, ERCP today Continue IVF, LR 200 mL/hr Ensure adequate hydration, 2 pt drop in HGB Watch glucose, vamp creaser Antiemetics PRN Analgesia PRN Hold ASA, heparin sq until endosocpy complete Thank you for allowing us to participate in the care of this patient. Please call with any acute changes, questions or concerns. Please see addendum below with additional recommendation from my supervising physician. Supervising Physician Co-Signing Physician Notes I saw and evaluated the patient. He presented with abdominal pain and elevated liver function. The patient notes that he has had some shaking chills overnight as well. Imaging inconclusive. Overnight he has had a significant decrease in his AST and ALT though his bilirubin remains at 2.9. Physical examination Moderate distress noted Mild scleral icterus Right upper quadrant tenderness noted Impression: Patient presenting with acute pancreatitis with elevated AST ALT given the symptomology I wonder if he has gallstone pancreatitis and perhaps underlying cholangitis given fevers and chills noted overnight. We will proceed with endoscopic ultrasound and ERCP this afternoon. We discussed risks and benefits to include bleeding infection perforation pain, failed biliary cannulation and the need for follow-up studies. History of Present Illness Reason for Consultation: pancreatitis, gallstones Requesting Physician: Roslyn Attending Physician: Griffin Mcgowan MD History of Present Illness 62 year old male with history of HTN, prediabetes, H.Pylori admitted with abd pain, nausea/vomiting. GI asked to evaluated, chart reviewed. Pt notes that about 2/3 days ago he developed upper abd pain. This was epigastric in location, radiated slightly to his RUQ. There has been nausea, vomiting. Denies fever, chills at home. Intermittent ETOH, last use 2 weeks ago WBC 15 INR 1 BUN 32, VIRTUAL RECRUITER 1.9 Tbili 2.9 AST 143 ALT 372 ALKP 123 Lipase 2420 MRI ABD 2021: Motion degraded exam. Acute pancreatitis. No evidence of pancreatic ductal dilation or acute peripancreatic fluid collection. 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 The splenic vein is not well visualized.Cholelithiasis without evidence of acute cholecystitis, choledocholithiasis or biliary ductal dilation. CTAP 2021: Findings are compatible with acute pancreatitis. No acute peripancreatic fluid collections are seen. Allergies Allergy/AdvReac Type Severity Reaction Status Date / Time amoxicillin [From Augmentin] Allergy angioedema Verified 04/24/22 20:38 clavulanic acid Allergy angioedema Verified 04/24/22 20:38 [From Augmentin] Home Medications Medication Instructions Recorded Confirmed Type aspirin 81 mg tablet,delayed 81 mg PO QAM 09/04/20 04/24/22 History release lisinopril 40 mg tablet 40 mg PO QAM 09/04/20 04/24/22 History metoprolol succinate 50 mg 50 mg PO QAM 09/04/20 04/24/22 History tablet,extended release 24 hr cyclobenzaprine 10 mg tablet 10 mg PO TID 04/24/22 04/24/22 History Patient History Medical History Hypertension Surgical History History of back surgery Social History Smoking Status: Never smoker Second Hand Exposure: No; Do You Dip or Chew Tobacco: No; Tobacco Cessation Education Requested by Patient: No Hx Alcohol Use: Yes Hx Substance Use: No Preferred Language: Chinese Communication Ability: Effective 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 Beliefs That Will Affect Care: None marital status: Single Current Living Situation: Alone current occupational status: retired Other Information That Helps Us Care for You: No Feels Safe at Home: Yes Safety Concerns: Feels Safe At This Time Assistive Devices: Denture - Upper and Glasses Review of Systems Review of Systems: All systems reviewed & are unremarkable except as noted in HPI & below Physical Exam Constitutional: WD/WN, vitals as above Neck: trachea midline; no tracheal deviation Respiratory: normal respiratory effort, lungs clear to auscultation Cardiovascular: Rate/Rhythm: regular rate and regular rhythm Gastrointestinal (Abdomen): Inspection/Auscultation: abdomen normal to inspection, + abdomen distended and normal bowel sounds Percussion/Palpation: + abdomen tender and abdomen soft; no guarding, abdomen not rigid, no abdominal mass and no ascites Skin: no rashes, warm and dry Results & Data ([facility]) Vital Signs (Past 12 Hours) Vital Signs Temp Pulse Pulse Resp BP Pulse Ox O2 Del Method 04/25/22 07:44 36.9 C 106 H 18 176/105 H 95 Room Air 04/24/22 23:00 37.1 C 93 H 18 194/96 H 97 Room Air Laboratory Results 04/25/22 04/25/22 04/25/22 Range/Units 07:32 07:32 07:32 WBC 15.29 H (4.8-10.8) K/ul RBC 5.40 (4.63-6.08) M/uL Hgb 16.4 D (14.0-18.0) g/dl Hct 48.9 (40.1-51.0) % MCV 90.6 (80.0-100.0) fL MCH 30.4 (25.0-34.0) pg MCHC 33.5 (32.0-36.0) g/dL RDW Std Deviation 44.6 (36.4-46.3) fL RDW Coeff of Fred 13.5 (11.5-14.5) % Plt Count 222 (130-400) K/uL MPV 11.4 (9.4-12.4) fL Immature Gran % (Auto) 0.5 % Neut % (Auto) 90.9 % Lymph % (Auto) 2.4 % Stokes % (Auto) 6.0 % Eos % (Auto) 0.0 % Baso % (Auto) 0.2 % Neut # (Auto) 13.89 H (1.4-6.5) K/uL Lymph # (Auto) 0.37 L (1.2-3.4) K/uL Stokes # (Auto) 0.92 H (0.24-0.82) K/uL Eos # (Auto) 0.00 (0-0.50) K/uL Baso # (Auto) 0.03 (0-0.2) K/uL Immature Gran # (Auto) 0.08 H (0.00-0.02) K/uL Toxic Vacuolation 1+ PT INR APTT PTT Ratio Sodium 135 L (136-145) mmol/L Potassium 4.8 (3.5-5.1) mmol/L Chloride 104 (98-107) mmol/L Carbon Dioxide 22 (21-32) mmol/L Anion Gap 9 (3-11) BUN 32 H (6-23) mg/dl Creatinine 1.90 H (0.6-1.4) mg/dl Est Cr Clr Drug Dosing 43.4 ml/min Est GFR ( Amer) 43.1 ml/min Est GFR (Non-Af Amer) 37.2 ml/min BUN/Creatinine Ratio 16.8 (10-20) Glucose 195 H (70-99(Fasting)) mg/dl Estimat Average Glucose mg/dl Hemoglobin A1c (4.5-5.6) % Calcium 7.9 L (8.5-10.1) mg/dl Magnesium (1.7-2.4) mg/dl Total Bilirubin 2.9 H (0.2-1.0) mg/dl Direct Bilirubin (0-0.2) mg/dl AST 143 H (13-39) U/L ALT 372 H (7-52) U/L Alkaline Phosphatase 123 H (34-104) U/L Troponin I High Sens (0-20) pg/ml Total Protein 6.3 D (6.0-8.3) gm/dl Albumin 3.9 (3.4-5.0) gm/dl Globulin 2.4 L (2.5-4.0) gm/dl Albumin/Globulin Ratio 1.6 (0.9-2) Triglycerides (0-150) mg/dl Lipase 2420 H (11-82) U/L Urine Color Urine Appearance (Clear) Urine pH (4.5-7.5) Ur Specific [place] (1.000-1.030) Urine Protein (Negative) Urine Glucose (UA) (Negative) Urine Ketones (Negative) Urine Blood (Negative) Urine Nitrite (Negative) Urine Bilirubin (Negative) Urine Urobilinogen (Negative) Ur Leukocyte Esterase (Negative) Urine WBC (Auto) (0-5) /hpf Urine RBC (Auto) (0-4) /hpf U Hyaline Cast (Auto) (0-5) /lpf U Epithel Cells (Auto) (0-5) /lpf Urine Bacteria (Auto) (Negative) Calcium Oxalate Crystal (None Prsent) Amorphous Sediment (None Prsent) WBC Casts (0) /lpf Urine Mucus (None Prsent) SARS-CoV-2, RNA, NAAT (NEGATIVE) 04/24/22 04/24/2222 Range/Units 21:42 21:04 21:04 WBC (4.8-10.8) K/ul RBC (4.63-6.08) M/uL Hgb (14.0-18.0) g/dl Hct (40.1-51.0) % MCV (80.0-100.0) fL MCH (25.0-34.0) pg MCHC (32.0-36.0) g/dL RDW Std Deviation (36.4-46.3) fL RDW Coeff of Fred (11.5-14.5) % Plt Count (130-400) K/uL MPV (9.4-12.4) fL Immature Gran % (Auto) % Neut % (Auto) % Lymph % (Auto) % Stokes % (Auto) % Eos % (Auto) % Baso % (Auto) % Neut # (Auto) (1.4-6.5) K/uL Lymph # (Auto) (1.2-3.4) K/uL [place] # (Auto) (0.24-0.82) K/uL Eos # (Auto) (0-0.50) K/uL Baso # (Auto) (0-0.2) K/uL Immature Gran # (Auto) (0.00-0.02) K/uL Toxic Vacuolation PT 10.9 Cancelled INR 1.0 Cancelled APTT 24.0 Cancelled PTT Ratio 0.9 Cancelled Sodium (136-145) mmol/L Potassium (3.5-5.1) mmol/L Chloride (98-107) mmol/L Carbon Dioxide (21-32) mmol/L Anion Gap (3-11) BUN (6-23) mg/dl Creatinine (0.6-1.4) mg/dl Est Cr Clr Drug Dosing ml/min Est GFR ( Amer) ml/min Est GFR (Non-Af Amer) ml/min BUN/Creatinine Ratio (10-20) Glucose (70-99(Fasting)) mg/dl Estimat Average Glucose mg/dl Hemoglobin A1c (4.5-5.6) % Calcium (8.5-10.1) mg/dl Magnesium (1.7-2.4) mg/dl Total Bilirubin (0.2-1.0) mg/dl Direct Bilirubin 1.1 H (0-0.2) mg/dl AST (13-39) U/L ALT (7-52) U/L Alkaline Phosphatase (34-104) U/L Troponin I High Sens 11.5 (0-20) pg/ml Total Protein (6.0-8.3) gm/dl Albumin (3.4-5.0) gm/dl Globulin (2.5-4.0) gm/dl Albumin/Globulin Ratio (0.9-2) Triglycerides 95 (0-150) mg/dl Lipase (11-82) U/L Urine Color Urine Appearance (Clear) Urine pH (4.5-7.5) Ur Specific [place] (1.000-1.030) Urine Protein (Negative) Urine Glucose (UA) (Negative) Urine Ketones (Negative) Urine Blood (Negative) Urine Nitrite (Negative) Urine Bilirubin (Negative) Urine Urobilinogen (Negative) Ur Leukocyte Esterase (Negative) Urine WBC (Auto) (0-5) /hpf Urine RBC (Auto) (0-4) /hpf U Hyaline Cast (Auto) (0-5) /lpf U Epithel Cells (Auto) (0-5) /lpf Urine Bacteria (Auto) (Negative) Calcium Oxalate Crystal (None Prsent) Amorphous Sediment (None Prsent) WBC Casts (0) /lpf Urine Mucus (None Prsent) SARS-CoV-2, RNA, NAAT (NEGATIVE) 04/24/22 04/24/22 04/24/22 Range/Units 20:30 18:15 18:15 WBC (4.8-10.8) K/ul RBC (4.63-6.08) M/uL Hgb (14.0-18.0) g/dl Hct (40.1-51.0) % MCV (80.0-100.0) fL MCH (25.0-34.0) pg MCHC (32.0-36.0) g/dL RDW Std Deviation (36.4-46.3) fL RDW Coeff of Fred (11.5-14.5) % Plt Count (130-400) K/uL MPV (9.4-12.4) fL Immature Gran % (Auto) % Neut % (Auto) % Lymph % (Auto) % Stokes % (Auto) % Eos % (Auto) % Baso % (Auto) % Neut # (Auto) (1.4-6.5) K/uL Lymph # (Auto) (1.2-3.4) K/uL [place] # (Auto) (0.24-0.82) K/uL Eos # (Auto) (0-0.50) K/uL Baso # (Auto) (0-0.2) K/uL Immature Gran # (Auto) (0.00-0.02) K/uL Toxic Vacuolation PT INR APTT PTT Ratio Sodium (136-145) mmol/L Potassium (3.5-5.1) mmol/L Chloride (98-107) mmol/L Carbon Dioxide (21-32) mmol/L Anion Gap (3-11) BUN (6-23) mg/dl Creatinine (0.6-1.4) mg/dl Est Cr Clr Drug Dosing ml/min Est GFR ( Amer) ml/min Est GFR (Non-Af Amer) ml/min BUN/Creatinine Ratio (10-20) Glucose (70-99(Fasting)) mg/dl Estimat Average Glucose 117 mg/dl Hemoglobin A1c 5.7 H (4.5-5.6) % Calcium (8.5-10.1) mg/dl Magnesium (1.7-2.4) mg/dl Total Bilirubin (0.2-1.0) mg/dl Direct Bilirubin (0-0.2) mg/dl AST (13-39) U/L ALT (7-52) U/L Alkaline Phosphatase (34-104) U/L Troponin I High Sens (0-20) pg/ml Total Protein (6.0-8.3) gm/dl Albumin (3.4-5.0) gm/dl Globulin (2.5-4.0) gm/dl Albumin/Globulin Ratio (0.9-2) Triglycerides (0-150) mg/dl Lipase (11-82) U/L Urine Color [place] Urine Appearance Cloudy A (Clear) Urine pH 5.5 (4.5-7.5) Ur Specific [place] 1.029 (1.000-1.030) Urine Protein 1+ H (Negative) Urine Glucose (UA) Trace H (Negative) Urine Ketones 1+ H (Negative) Urine Blood Negative (Negative) Urine Nitrite Positive A (Negative) Urine Bilirubin 3+ H (Negative) Urine Urobilinogen Negative (Negative) Ur Leukocyte Esterase 1+ H (Negative) Urine WBC (Auto) 10-30 H (0-5) /hpf Urine RBC (Auto) 0-4 (0-4) /hpf U Hyaline Cast (Auto) >30 H (0-5) /lpf U Epithel Cells (Auto) >30 H (0-5) /lpf Urine Bacteria (Auto) 1+ H (Negative) Calcium Oxalate Crystal Present A (None Prsent) Amorphous Sediment Present A (None Prsent) WBC Casts 10-20 H (0) /lpf Urine Mucus Present A (None Prsent) SARS-CoV-2, RNA, NAAT NEGATIVE (NEGATIVE) 04/24/22 04/24/22 04/24/22 Range/Units 18:15 18:15 16:33 WBC 12.09 H (4.8-10.8) K/ul RBC 6.50 H (4.63-6.08) M/uL Hgb 19.8 H (14.0-18.0) g/dl Hct 57.5 H (40.1-51.0) % MCV 88.5 (80.0-100.0) fL MCH 30.5 (25.0-34.0) pg MCHC 34.4 (32.0-36.0) g/dL RDW Std Deviation 42.4 (36.4-46.3) fL RDW Coeff of Fred 13.3 (11.5-14.5) % Plt Count 216 (130-400) K/uL MPV 11.6 (9.4-12.4) fL Immature Gran % (Auto) 0.5 % Neut % (Auto) 92.2 % Lymph % (Auto) 2.6 % Stokes % (Auto) 4.3 % Eos % (Auto) 0.1 % Baso % (Auto) 0.3 % Neut # (Auto) 11.14 H (1.4-6.5) K/uL Lymph # (Auto) 0.32 L (1.2-3.4) K/uL Stokes # (Auto) 0.52 (0.24-0.82) K/uL Eos # (Auto) 0.01 (0-0.50) K/uL Baso # (Auto) 0.04 (0-0.2) K/uL Immature Gran # (Auto) 0.06 H (0.00-0.02) K/uL Toxic Vacuolation PT INR APTT PTT Ratio Sodium 135 L (136-145) mmol/L Potassium 4.8 (3.5-5.1) mmol/L Chloride 99 (98-107) mmol/L Carbon Dioxide 19 L (21-32) mmol/L Anion Gap 17 H (3-11) BUN 22 (6-23) mg/dl Creatinine 1.74 H (0.6-1.4) mg/dl Est Cr Clr Drug Dosing 47.1 ml/min Est GFR ( Amer) 48.0 ml/min Est GFR (Non-Af Amer) 41.4 ml/min BUN/Creatinine Ratio 12.6 (10-20) Glucose 237 H (70-99(Fasting)) mg/dl Estimat Average Glucose mg/dl Hemoglobin A1c (4.5-5.6) % Calcium 9.6 (8.5-10.1) mg/dl Magnesium 2.0 (1.7-2.4) mg/dl Total Bilirubin 3.2 H (0.2-1.0) mg/dl Direct Bilirubin (0-0.2) mg/dl AST 306 H (13-39) U/L ALT 684 H (7-52) U/L Alkaline Phosphatase 192 H (34-104) U/L Troponin I High Sens (0-20) pg/ml Total Protein 8.1 (6.0-8.3) gm/dl Albumin 4.8 (3.4-5.0) gm/dl Globulin 3.3 (2.5-4.0) gm/dl Albumin/Globulin Ratio 1.5 (0.9-2) Triglycerides (0-150) mg/dl Lipase 2336 H (11-82) U/L Urine Color Urine Appearance (Clear) Urine pH (4.5-7.5) Ur Specific [place] (1.000-1.030) Urine Protein (Negative) Urine Glucose (UA) (Negative) Urine Ketones (Negative) Urine Blood (Negative) Urine Nitrite (Negative) Urine Bilirubin (Negative) Urine Urobilinogen (Negative) Ur Leukocyte Esterase (Negative) Urine WBC (Auto) (0-5) /hpf Urine RBC (Auto) (0-4) /hpf U Hyaline Cast (Auto) (0-5) /lpf U Epithel Cells (Auto) (0-5) /lpf Urine Bacteria (Auto) (Negative) Calcium Oxalate Crystal (None Prsent) Amorphous Sediment (None Prsent) WBC Casts (0) /lpf Urine Mucus (None Prsent) SARS-CoV-2, RNA, NAAT (NEGATIVE) (1) Acute pancreatitis Acute pancreatitis complication: unspecified Pancreatitis type: unspecified pancreatitis type Qualified Code(s): K85.90 - Acute pancreatitis without necrosis or infection, unspecified
[2022-04-25] MEDS ORDERED: MIDAZOLAM HCL 1 MG/ML 2ML VIAL ONE (12:26)
[2022-04-25] MEDS ORDERED: fentaNYL citrate 100 MCG/2 ML VIAL ONE (12:28)
[2022-04-25] MEDS ORDERED: PROPOFOL IV EMULSION 10 MG/ML 20 ML VIAL IV ONE ×3 (12:29→13:42)
[2022-04-25] MEDS ORDERED: LIDOCAINE 2% MPF LOCAL 5 ML VIAL INFIL ONE ×2 (12:29→12:39)
[2022-04-25] MEDS ORDERED: ONDANSETRON INJ 2 MG/ML 2 ML VIAL ONE (12:29)
[2022-04-25] MEDS ORDERED: ATROPINE SULFATE 0.1 MG/ML 10ML SYR IV PRN (12:36)
[2022-04-25] MEDS ORDERED: HYDROmorphone INJ 2 MG/ML SYR/VIAL IV PRN (12:36)
[2022-04-25] MEDS ORDERED: ePHEDrine sulfate 50 MG/ML AMP IV PRN (12:36)
[2022-04-25] MEDS ORDERED: ONDANSETRON INJ 2 MG/ML 2 ML VIAL IV PRN (12:36)
[2022-04-25] MEDS ORDERED: INDOMETHACIN 50 MG SUPP PR ONE ×2 (12:38→12:47)
--- NOTE | 2022-04-25 12:38 | Anesthesiology Consultation ---
Date of Service April 25, 2022 Assessment & Plan ASA ASA3 Proposed Anesthesia Anesthesia Type: MAC Risk / Benefits Reviewed With: PT / POA / Parent / Guardian, Accepts Plan and Informed Consent Obtained History Surgery Operation Date: 04/25/22 11:50 Proposed Procedures p Endoscopic Retrograde Cholangiopancreatogram - Carlie Chilel DO Height/Weight Height: 5 ft 8 in Weight: 85.1 kg Allergies Allergy/AdvReac Type Severity Reaction Status Date / Time amoxicillin [From Augmentin] Allergy angioedema Verified 04/24/22 20:38 clavulanic acid Allergy angioedema Verified 04/24/22 20:38 [From Augmentin] Medications Home Medications Medication Instructions Recorded Confirmed Last Taken aspirin 81 mg tablet,delayed 81 mg PO QAM 09/04/20 04/24/22 09/03/20 release lisinopril 40 mg tablet 40 mg PO QAM 09/04/20 04/24/22 09/03/20 metoprolol succinate 50 mg 50 mg PO QAM 09/04/20 04/24/22 09/03/20 tablet,extended release 24 hr cyclobenzaprine 10 mg tablet 10 mg PO TID 04/24/22 04/24/22 Unknown Active Medications Generic Name Dose Route Start Last Admin Trade Name Freq PRN Reason Stop Dose Admin Hydromorphone HCl 0.5 mg 04/24/22 21:17 04/25/22 07:54 Hydromorphone Inj 0.5 Mg/0.5 Ml Syr IV 05/08/22 21:16 0.5 mg Q3H PRN Administration Pain Cefepime HCl 2,000 mg/ Syringe 20 mls @ 5 mls/min 04/25/22 04:00 04/25/22 05:02 IV 05/05/22 03:59 5 mls/min Q24H AVERY Administration Protocol Lactated Ringer's 1,000 mls @ 200 mls/hr 04/25/22 02:00 04/25/22 10:10 Lr IV 05/25/22 01:59 200 mls/hr .Q5H AVERY Administration NPO Date Last Intake of Fluids: 04/24/22 Time Last Intake of Fluids: 12:00 Date Last Intake of Solids: 04/23/22 Last Intake of Solids Comment: 2-3 days ago Past Medical History Medical History Hypertension Exercise / Class Metabolic Activity II 4-5 Yardwork/Stairs/Walk up hill Past Surgical History Surgical History History of back surgery Past Anesthesia History No Hx of Anesthesia Complications and No Family Hx of Anesthesia Complications History of PONV No Hx of PONV and No Hx of Motion Sickness Social History Smoking Status: Never smoker Do You Dip or Chew Tobacco: No Hx Alcohol Use: Yes alcohol intake frequency: holidays/special occasions only Hx Substance Use: No substance use type: does not use Review of Systems denies fever/cough/ colds/ chest pain/ SOB/ SHASHANK denies SHASHANK Physical Exam Vital Signs Last Vital Signs Temp 36.7 C 04/25/22 11:32 Pulse 116 H 04/25/22 11:32 Resp 22 04/25/22 11:32 BP 187/95 H 04/25/22 11:32 Pulse Ox 100 04/25/22 11:32 O2 Del Method 04/25/22 11:32 ENMT Mouth: no TMJ abnormality and no dentition abnormality Thyromental Distance: > or= 3.5 Finger Breadths Mallampati Class: II Neck neck extension not limited Respiratory normal respiratory effort; no respiratory distress Auscultation: lungs clear to auscultation bilaterally Cardiovascular Rate/Rhythm: regular rate and regular rhythm Neurologic moves all extremities Psychiatric Orientation: alert and oriented x 3 Testing Laboratory Results 04/25/22 07:32 04/25/22 07:32 PT 10.9 Seconds (9.0-12.0) 04/24/22 21:42 INR 1.0 (0.9-1.1) 04/24/22 21:42 APTT 24.0 Seconds (21.0-31.0) 04/24/22 21:42 Hemoglobin A1c 5.7 % (4.5-5.6) H 04/24/22 18:15 Urine Color [place] 04/24/22 18:15 Urine Appearance Cloudy (Clear) A 04/24/22 18:15 Urine pH 5.5 (4.5-7.5) 04/24/22 18:15 Ur Specific [place] 1.029 (1.000-1.030) 04/24/22 18:15 Urine Protein 1+ (Negative) H 04/24/22 18:15 Urine Glucose (UA) Trace (Negative) H 04/24/22 18:15 Urine Ketones 1+ (Negative) H 04/24/22 18:15 Urine Nitrite Positive (Negative) A 04/24/22 18:15 Ur Leukocyte Esterase 1+ (Negative) H 04/24/22 18:15 Urine WBC (Auto) 10-30 /hpf (0-5) H 04/24/22 18:15 Urine RBC (Auto) 0-4 /hpf (0-4) 04/24/22 18:15 U Hyaline Cast (Auto) >30 /lpf (0-5) H 04/24/22 18:15 U Epithel Cells (Auto) >30 /lpf (0-5) H 04/24/22 18:15 Urine Bacteria (Auto) 1+ (Negative) H 04/24/22 18:15
[2022-04-25] MEDS ORDERED: GLYCOPYRROLATE 0.2 MG/ML VIAL ONE (12:39)
[2022-04-25] MEDS ORDERED: LABETALOL HCL IV 5 MG/ML 20ML IV ONE (13:41)
--- NOTE | 2022-04-25 14:09 | Post Operative Brief Note ---
Immediate Post Op Note v1 Date of Surgery April 25, 2022 Pre & Post Diagnosis Operation Date: 04/25/22 11:50 Pre-Op Diagnosis: PANCREATITIS Post-Op Diagnosis: Gallstones with Pancreatic and Biliary Stent Placed I identified the patient and participated in the time-out.: Yes Procedure Operation Date: 04/25/22 11:50 Actual Procedures p Endoscopic Ultrasonography Upper(Not Applicable) - Carlie Chilel DO p Endoscopic Retrograde Cholangiopancreato with Pancreatic and Biliary Stent Placed(Not Applicable) - Carlie Chilel DO Surgeon Carlie Chilel, Senior Pensions Administrator none Estimated Blood Loss 0 Findings Consistent with Post-Op Diagnosis
--- NOTE | 2022-04-25 14:11 | Communication Note ---
Date of Service: April 25, 2022 The patient went to urgent endoscopic ultrasound and ERCP this afternoon for suspected gallstone pancreatitis and possible cholangitis. The patient was found to have a sludge and stone filled gallbladder, numerous defects within the common bile duct consistent with stones in addition to inflammatory changes throughout the pancreas. An ERCP was performed, a prophylactic pancreatic stent was placed and a biliary stent was placed Recommendations Avoid anticoagulation and nonsteroidals for 5 days please Broad-spectrum antibiotic coverage Continue aggressive IV hydration given ongoing pancreatitis and renal insufficiency General surgery consultation to discuss timing of cholecystectomy
--- NOTE | 2022-04-25 14:13 | GI REPORT ---
Patient Name: Vahe Doss Procedure Date: 04/25/2022 12:44 PM Date of : 1960 Admit Type: Inpatient Age: 62 Gender: Male Attending MD: Carlie Chilel DO Procedure: Upper EUS Providers: Carlie Chilel DO Referring MD: Griffin Sanlishivani Indications: Elevated liver enzymes, Suspected choledocholithiasis Medicines: Monitored Anesthesia Care Complications: No immediate complications. Estimated blood loss: Minimal. Estimated Blood Loss: Estimated blood loss was minimal. Procedure: Pre-Anesthesia Assessment: - Prior to the procedure, a History and Physical was performed, and patient medications, allergies and sensitivities were reviewed. The patient's tolerance of previous anesthesia was reviewed. - The risks and benefits of the procedure and the sedation options and risks were discussed with the patient. All questions were answered and informed consent was obtained. - Patient identification and proposed procedure were verified prior to the procedure by the physician, the nurse and the broke worker. The procedure was verified in the procedure room. - Pre-procedure physical examination revealed no contraindications to sedation. - ASA Grade Assessment: III - A patient with severe systemic disease. - After reviewing the risks and benefits, the patient was deemed in satisfactory condition to undergo the procedure. - The anesthesia plan was to use monitored anesthesia care (MAC). - Immediately prior to administration of medications, the patient was re-assessed for adequacy to receive sedatives. - The heart rate, respiratory rate, oxygen saturations, blood pressure, adequacy of pulmonary ventilation, and response to care were monitored throughout the procedure. - The physical status of the patient was re-assessed after the procedure. After obtaining informed consent, the endoscope was passed under direct vision. Throughout the procedure, the patient's blood pressure, pulse, and oxygen saturations were monitored continuously. The Endosonoscope was introduced through the mouth, and advanced to the second part of duodenum. The upper EUS was accomplished without difficulty. The patient tolerated the procedure well. Findings: ENDOSONOGRAPHIC FINDING: : There was dilation in the common bile duct which measured up to 8 mm. Multiple stones were visualized endosonographically in the common bile duct. They were hyperechoic and characterized by shadowing. Sludge and stone filled gallbladder. They were hyperechoic and characterized by shadowing. Pancreatic parenchymal abnormalities were noted in the entire pancreas. These consisted of lobularity without honeycombing. Fluid collections were noted around the pancreas consistent with acute pancreatitis Impression: - There was dilation in the common bile duct which measured up to 8 mm. - Multiple stones were visualized endosonographically in the common bile duct. - Multiple stones were visualized endosonographically in the gallbladder. - Pancreatic parenchymal abnormalities consisting of lobularity and peripancreatic fluid were noted in the entire pancreas. - No specimens collected. Recommendation: - Perform an ERCP today. Carlie Chilel D.O. Carlie Chilel, 04/25/2022 2:13:00 PM This report has been signed electronically. Note Initiated On: 04/25/2022 12:44 PM Number of Addenda: 0 I attest to the content of the Intraoperative Record and orders documented therein, exceptions below {[id number]}
--- NOTE | 2022-04-25 14:25 | Fluoroscopy Report ---
[place] ERCP biliary ductal HISTORY: 62 years-old Male ERCP acute pancreatitis COMPARISON: CT and MRCP studies 04/24/2022 TECHNIQUE: 7 spot fluoroscopic images of the abdomen were obtained utilizing 62.3 seconds fluoroscopy time FINDINGS: Endoscope is noted within the duodenum. Cannulation of the pancreatic and common bile ducts. Retrogra de injection of contrast into the common bile duct demonstrates no biliary ductal dilation, stricture or choledocholithiasis. Contracted gallbladder with cholelithiasis. Subsequent images demonstrate pl acement of a common bile duct stent which appears to be in satisfactory positioning. Clips are noted within the region of the duodenum. IMPRESSION: Fluoroscopic assistance as above. ACT 112: Negative or not required by law. The above report was generated using voice recognition software. It may contain grammatical, syntax o r spelling errors. Electronically signed by: Finn Lagos M.D. 04/25/2022 2:24 PM
--- NOTE | 2022-04-25 14:52 | Anesthesiology Progress Note ---
Date of Service April 25, 2022 Anesthesia Post Procedure Vital Signs Vital Signs: Temp Pulse Pulse Pulse Resp BP BP 04/25/22 14:30 36.9 C 101 H 22 160/94 H 04/25/22 14:20 102 H 20 138/93 04/25/22 14:10 103 H 25 H 129/101 H 04/25/22 14:04 36.7 C 105 H 20 141/88 H 04/25/22 11:32 36.7 C 116 H 22 187/95 H 04/25/22 07:44 36.9 C 106 H 18 176/105 H 04/24/22 23:00 37.1 C 93 H 18 194/96 H 04/24/22 22:00 82 13 04/24/22 22:00 199/97 H 04/24/22 21:30 79 16 04/24/22 21:24 150/92 H 04/24/22 21:24 85 14 04/24/22 21:00 85 21 04/24/22 21:00 151/90 H 04/24/22 20:30 74 17 04/24/22 20:01 199/90 H 04/24/22 20:01 82 17 04/24/22 20:00 80 19 04/24/22 19:30 92 H 19 04/24/22 19:27 94 H 16 04/24/22 20:33 04/24/22 20:21 86 199/90 H 04/24/22 19:27 36.5 C 91 H 20 191/114 H 04/24/22 16:29 36.6 C 63 20 100/70 Pulse Ox O2 Del Method O2 Flow Rate 04/25/22 14:30 94 Room Air 04/25/22 14:20 96 Oxymask 3 04/25/22 14:10 96 Oxymask 5 04/25/22 14:04 97 Oxymask 7 04/25/22 11:32 100 Room Air 04/25/22 07:44 95 Room Air 04/24/22 23:00 97 Room Air 04/24/22 22:00 97 04/24/22 22:00 04/24/22 21:30 95 04/24/22 21:24 04/24/22 21:24 95 04/24/22 21:00 97 04/24/22 21:00 04/24/22 20:30 99 04/24/22 20:01 04/24/22 20:01 99 04/24/22 20:00 96 04/24/22 19:30 98 04/24/22 19:27 97 04/24/22 20:33 99 Room Air 04/24/22 20:21 04/24/22 19:27 98 Room Air 04/24/22 16:29 97 Room Air Pain Intensity Abdomen: Pain Intensity: 2 Transfer of Care Handoff Completed per policy Notes Mental Status: alert / awake / arousable and participated in evaluation Patient Amnestic to Procedure: Yes Nausea / Vomiting: adequately controlled Pain: adequately controlled Airway Patency, RR, SpO2: stable & adequate BP & HR: stable & adequate Hydration State: stable & adequate Anesthetic Complications: no major complications apparent and Pt Satisfied with anesthetic care
[2022-04-25] MEDS: metroNIDAZOLE 500 MG/100 ML BAG IV SCH ×2 (16:27→21:48)
--- NOTE | 2022-04-25 16:43 | Hospitalist Progress Note ---
Date of Service April 25, 2022 Assessment & Plan (1) Acute pancreatitis: Plan: Likely secondary to gallstones Choledocholithiasis Possible acute cholangitis Status post ERCP with pancreatic and bile duct stent placement Add Flagyl to cefepime Continue IV LR 200 cc/h N.p.o. for now General surgery consulted for plans regarding cholecystectomy Continue to monitor closely Acute renal failure Likely secondary to acute pancreatitis Continue IV LR Monitor closely Complicated UTI Urine culture: Pending Will obtain blood cultures Continue IV cefepime Hypertension, elevated secondary illness Continue to monitor closely Continue metoprolol prediabetes, remote hemoglobin A1c of 5.7 from January 2018 A1c 5.7 DVT prophylaxis per Heparin subcu Full code Disposition Pending likely discharge to home medical history Admission and Anticipated Discharge Date Admission Date: April 24, 2022 Subjective Follow-up for acute pancreatitis, cholelithiasis, possible cholangitis, etc. Seen sitting up in bed, not in distress, comfortable Status post ERCP with pancreatic and biliary duct stent placement States he feels better since the procedure Abdominal pain is now mild Denies chills, nausea No problems with urination no chest pain, dyspnea, palpitations, dizziness No other symptoms Review of Systems Review of Systems: all noted and negative except for above Physical Exam Physical Exam: General- oriented x 3, not in distress, speaks in sentences with no effort or accessory muscle use Eyes- anicteric Neck- no JVD Lungs- clear breath sounds bilaterally, no rales/wheezes Heart- normal rate, regular rhythm; no murmurs Abdomen- normal bowel sounds, nondistended, soft, mild epigastric tenderness Extremities- no pretibial edema, no calf tenderness Neuro- alert, oriented x 3; no gross focal neurologic deficits Skin- warm & dry Results & Data Results & Data ([facility]) Vital Signs (Past 12 Hours) Vital Signs Temp Pulse Pulse Resp BP Pulse Ox O2 Del Method 04/25/22 16:10 36.3 C L 92 H 18 159/94 H 97 Room Air 04/25/22 15:38 36.9 C 94 H 20 164/112 H 95 Nasal Cannula 04/25/22 15:05 36.9 C 97 H 20 164/88 H 97 Nasal Cannula 04/25/22 14:50 36.9 C 100 H 21 144/95 H 95 Nasal Cannula 04/25/22 14:30 36.9 C 101 H 22 160/94 H 94 Room Air 04/25/22 14:40 36.9 C 99 H 21 170/93 H 95 Room Air 04/25/22 14:20 102 H 20 138/93 96 Oxymask 04/25/22 14:10 103 H 25 H 129/101 H 96 Oxymask 04/25/22 14:04 36.7 C 105 H 20 141/88 H 97 Oxymask 04/25/22 11:32 36.7 C 116 H 22 187/95 H 100 Room Air 04/25/22 07:44 36.9 C 106 H 18 176/105 H 95 Room Air O2 Flow Rate 04/25/22 16:10 04/25/22 15:38 2 04/25/22 15:05 3 04/25/22 14:50 2 04/25/22 14:30 04/25/22 14:40 04/25/22 14:20 3 04/25/22 14:10 5 04/25/22 14:04 7 04/25/22 11:32 04/25/22 07:44 all noted and reviewed including below (1) Acute pancreatitis Acute pancreatitis complication: unspecified Pancreatitis type: unspecified pancreatitis type Qualified Code(s): K85.90 - Acute pancreatitis without necrosis or infection, unspecified
--- NOTE | 2022-04-25 16:46 | GI REPORT ---
Patient Name: Vahe Doss Procedure Date: 04/25/2022 12:45 PM Date of : 1960 Admit Type: Inpatient Age: 62 Gender: Male Attending MD: Carlie Chilel DO Procedure: ERCP Providers: Carlie Chilel DO Referring MD: Griffin Mcgowan Indications: For therapy of bile duct stone(s), Suspected ascending cholangitis Medicines: Monitored Anesthesia Care Complications: No immediate complications. Estimated blood loss: Minimal. Estimated Blood Loss: Estimated blood loss was minimal. Procedure: Pre-Anesthesia Assessment: - Prior to the procedure, a History and Physical was performed, and patient medications, allergies and sensitivities were reviewed. The patient's tolerance of previous anesthesia was reviewed. - The risks and benefits of the procedure and the sedation options and risks were discussed with the patient. All questions were answered and informed consent was obtained. - Patient identification and proposed procedure were verified prior to the procedure by the physician, the nurse and the clam grower. The procedure was verified in the procedure room. - Pre-procedure physical examination revealed no contraindications to sedation. - ASA Grade Assessment: III - A patient with severe systemic disease. - After reviewing the risks and benefits, the patient was deemed in satisfactory condition to undergo the procedure. - The anesthesia plan was to use monitored anesthesia care (MAC). - Immediately prior to administration of medications, the patient was re-assessed for adequacy to receive sedatives. - The heart rate, respiratory rate, oxygen saturations, blood pressure, adequacy of pulmonary ventilation, and response to care were monitored throughout the procedure. - The physical status of the patient was re-assessed after the procedure. After obtaining informed consent, the scope was passed under direct vision. Throughout the procedure, the patient's blood pressure, pulse, and oxygen saturations were monitored continuously. The Duodenoscope was introduced through the mouth, and advanced to the duodenum and used to inject contrast into the bile duct and ventral pancreatic duct. The ERCP was accomplished without difficulty. The patient tolerated the procedure well. Findings: The broomcorn scraper film was normal. The esophagus was successfully intubated under direct vision without detailed examination of the pharynx, larynx, and associated structures, and upper GI tract. The upper GI tract was grossly normal. The major papilla was located entirely within a diverticulum. The major papilla was congested. The bile duct could not be cannulated with the short-nosed traction sphincterotome and guidewire. Through the ERCP scope two hemostatic clips were successfully placed (MR conditional) in the area of the papilla to help position it out of the diverticulum. The bile duct could not be cannulated with the short-nosed traction sphincterotome and guidewire. A biliary pre-cut sphincterotomy was made with a needle knife using a freehand technique using ERBE electrocautery. There was no post-sphincterotomy bleeding. The ventral pancreatic duct was inadvertently cannulated with the short-nosed traction sphincterotome and guidewire without any complications (wire was left in place to aid in biilary cannulation and place a prophylactic pancreatic stent). The bile duct was then deeply cannulated with the short-nosed traction sphincterotome and guidewire. Contrast was injected. I personally interpreted the bile duct images. Contrast extended to the hepatic ducts. The lower third of the main bile duct, middle third of the main bile duct and upper third of the main bile duct contained filling defect(s) thought to be a stone and sludge. The lower third of the main bile duct contained a single segmental stenosis 20 mm in length. Biliary sphincterotomy was made with a monofilament CleverCut distal wire sphincterotome using ERBE electrocautery. There was no post-sphincterotomy bleeding. To discover objects, the biliary tree was swept with a 12 mm balloon starting at the bifurcation. Sludge was swept from the duct. A few stones were removed. No stones remained. Pus was swept from the duct. One 10 Fr by 8 cm biliary stent with a single external flap and a single internal flap was placed 8 cm into the common bile duct. Bile flowed through the stent. The stent was in good position. One 5 Fr by 7 cm pancreatic stent with a full external pigtail and no internal flaps was placed 7 cm into the ventral pancreatic duct. Clear fluid flowed through the stent. The stent was in good position. The endoscope was withdrawn from the patient. Indomethacin 100 mg was given via suppository to decrease the risk of post-ERCP pancreatitis (PEP). Impression: - The major papilla was located entirely within a diverticulum. - The major papilla appeared congested. - Two hemostatic clips were successfully placed (MR conditional) in the area of the papilla to help position it out of the diverticulum. - A single segmental biliary stricture was found in the lower third of the main bile duct. The stricture was inflammatory. - Choledocholithiasis and cholangitis was found. Complete removal was accomplished by biliary sphincterotomy and balloon extraction. - One biliary stent was placed into the common bile duct. - One pancreatic stent was placed into the ventral pancreatic duct. - Indomethacin given to decrease risk of post-ERCP pancreatitis. Recommendation: - Avoid aspirin and nonsteroidal anti-inflammatory medicines for 1 week. - Clear liquid diet. - Use broad spectrum antibiotics for 2 weeks. - Repeat ERCP in 6 weeks to remove stent. - continue IV hydration for acute pancreatitis - General surgery consultation for cholecystectomy Carlie Chilel D.O. Carlie Chilel, 04/25/2022 4:46:10 PM This report has been signed electronically. Note Initiated On: 04/25/2022 12:45 PM Number of Addenda: 0 I attest to the content of the Intraoperative Record and orders documented therein, exceptions below {[id number]}
[2022-04-25] MEDS ORDERED: amLODIPine BESYLATE 5 MG TAB PO ONE (17:00)
[2022-04-25] MEDS: hydrALAZINE HCL 20 MG/ML VIAL IV PRN ×2 (18:14→21:57)
[2022-04-25] MEDS ORDERED: METOPROLOL SUCC 25MG EXT REL TAB PO ONE (19:30)
--- NOTE | 2022-04-25 19:50 | Surgery Consultation ---
Date of Consultation April 25, 2022 Assessment & Plan (1) Acute pancreatitis: Patient's acute pancreatitis is likely secondary to cholelithiasis and choledocholithiasis. As noted the patient has undergone ERCP today. We recommend proceeding as follows: Continue n.p.o. status Continue IV fluid for hydration due to pancreatitis Provide analgesics Provide antiemetics Continue antibiotics in the form of cefepime and Flagyl Follow serial labs Plan will be ultimately for cholecystectomy once patient has recovered from his pancreatitis. Additional recommendations be forthcoming based on his clinical course as it unfolds Supervising Physician Co-Signing Physician Notes As per Russell Brown physician preschool assistant History of Present Illness Reason for Consultation: Gallstone pancreatitis Attending Physician: Griffin Mcgowan MD History of Present Illness This is a 62-year-old male who presented to the emergency department on 04/24/2022 secondary to abdominal pain. He notes that the pain was located in the epigastric and right upper quadrant areas. He does report having similar episode of pain in a postprandial fashion approximate 1 year ago but this pain self resolved. The pain causing presentation to admission this time was unremit ting and more severe than usual and therefore the patient presented to the emergency room. Since admission to the hospital patient has had labs and imaging which independent reviewed. CT scan of the abdomen pelvis on 04/24/2022 showed the patient had findings concerning for acute pancreatitis, as pancreatic stranding with edema of the distal pancreas was noted. On this study the gallbladder did not show any calcified gallstones and the gallbladder wall was of normal caliber. There is no biliary ductal dilatation. A chest x-ray was performed on 04/24/2022 that showed no evidence of pneumonia. Patient ultimately underwent an MRCP on 04/24/2022 that showed findings consistent with acute pancreatitis. 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 Cholelithiasis without evidence of acute cholecystitis was noted. The patient has had labs with most recent labs being today. His white blood cell count is elevated at 15.2. Hemoglobin, hematocrit, and platelet count are all normal. Coagulation studies were noted to be normal on 04/24/2022. Today patient's chemistry profile showed sodium and potassium are 135 and 4.8. His BUN and creatinine were 32 and 1.9. LFTs included total bilirubin of 2.9 with a direct bilirubin of 1.1. AST and ALT are 143 and 372 respectively. His alkaline phosphatase is 123. Lipase is elevated at 2420. The patient ultimately underwent an ERCP on 04/25/2022 that showed dilatation of the common bile duct. Choledocholithiasis and cholangitis was found. The patient did undergo extraction of patient's stones in the common bile duct and a biliary stent was placed. At the time of my interview the patient was resting comfortably in bed. He did continue to have some epigastric abdominal pain. Allergies Allergy/AdvReac Type Severity Reaction Status Date / Time amoxicillin [From Augmentin] Allergy angioedema Verified 04/24/22 20:38 clavulanic acid Allergy angioedema Verified 04/24/22 20:38 [From Augmentin] Home Medications Medication Instructions Recorded Confirmed Type aspirin 81 mg tablet,delayed 81 mg PO QAM 09/04/20 04/24/22 History release lisinopril 40 mg tablet 40 mg PO QAM 09/04/20 04/24/22 History metoprolol succinate 50 mg 50 mg PO QAM 09/04/20 04/24/22 History tablet,extended release 24 hr cyclobenzaprine 10 mg tablet 10 mg PO TID 04/24/22 04/24/22 History Patient History Medical History Hypertension Surgical History History of back surgery Social History Smoking Status: Never smoker Second Hand Exposure: No; Do You Dip or Chew Tobacco: No; Tobacco Cessation Education Requested by Patient: No Hx Alcohol Use: Yes Hx Substance Use: No Preferred Language: Albanian Communication Ability: Effective Shuttleless Loom Weaver Required: No Beliefs That Will Affect Care: None marital status: Single Current Living Situation: Alone current occupational status: retired Other Information That Helps Us Care for You: No Feels Safe at Home: Yes Safety Concerns: Feels Safe At This Time Assistive Devices: Denture - Upper and Glasses Physical Exam Constitutional: WD/WN, vitals as above Eyes: + anicteric sclerae ENMT: Ears: no hearing impairment and no external ear abnormality Mouth: no oropharynx abnormality Neck: trachea midline Respiratory: normal respiratory effort; no respiratory distress and no labored breathing Cardiovascular: Rate/Rhythm: regular rate and regular rhythm Gastrointestinal (Abdomen): Abdomen is soft with minimal distention. The patient did have pain with palpation in the epigastric area as well as the right upper quadrant Musculoskeletal: No calf tenderness Skin: no rashes Neurologic: moves all extremities Psychiatric: A+Ox3, euthymic affect Results & Data ([facility]) Vital Signs (Past 12 Hours) Vital Signs Temp Pulse Pulse Resp BP BP Pulse Ox 04/25/22 19:43 36.6 C 100 H 20 184/92 H 95 04/25/22 18:08 36.5 C 88 16 176/104 H 184/101 H 95 04/25/22 17:14 36.4 C L 89 18 173/84 H 95 04/25/22 16:10 36.3 C L 92 H 18 159/94 H 97 04/25/22 15:38 36.9 C 94 H 20 164/112 H 95 04/25/22 15:05 36.9 C 97 H 20 164/88 H 97 04/25/22 14:50 36.9 C 100 H 21 144/95 H 95 04/25/22 14:30 36.9 C 101 H 22 160/94 H 94 04/25/22 14:40 36.9 C 99 H 21 170/93 H 95 04/25/22 14:20 102 H 20 138/93 96 04/25/22 14:10 103 H 25 H 129/101 H 96 04/25/22 14:04 36.7 C 105 H 20 141/88 H 97 04/25/22 11:32 36.7 C 116 H 22 187/95 H 100 O2 Del Method O2 Flow Rate 04/25/22 19:43 Room Air 04/25/22 18:08 Room Air 04/25/22 17:14 Room Air 04/25/22 16:10 Room Air 04/25/22 15:38 Nasal Cannula 2 04/25/22 15:05 Nasal Cannula 3 04/25/22 14:50 Nasal Cannula 2 04/25/22 14:30 Room Air 04/25/22 14:40 Room Air 04/25/22 14:20 Oxymask 3 04/25/22 14:10 Oxymask 5 04/25/22 14:04 Oxymask 7 04/25/22 11:32 Room Air PG Care Time/CCT Total # of Minutes Spent Total Time Spent with Patient: Total time spent is greater than 50% in coordination of care (as documented) at patient's floor/unit and/or counseling patient: Coding Level of Care Code 95899 Inpt Consult Level 5 Diagnoses Acute pancreatitis K85.90 Acute pancreatitis complication: unspecified Pancreatitis type: unspecified pancreatitis type (1) Acute pancreatitis Acute pancreatitis complication: unspecified Pancreatitis type: unspecified pancreatitis type Qualified Code(s): K85.90 - Acute pancreatitis without necrosis or infection, unspecified
[2022-04-25] MEDS: LORazepam 0.5 MG TAB PO PRN (21:43)
--- NOTE | 2022-04-25 23:19 | XRay Report ---
SINGLE VIEW CHEST CLINICAL HISTORY: Dyspnea. FINDINGS: An AP, portable, upright chest radiograph is compared to study dated 04/24/2022. The cardio mediastinal silhouette is unremarkable. There are low lung volumes with bibasilar atelectasis. The shruti ngs and pleural spaces are otherwise clear. No pneumothorax is seen. The bony thorax is grossly intac t. IMPRESSION: Low lung volumes with no active disease in the chest. ACT 112: Negative or not required by law. Electronically signed by: Leroy Schuler M.D. 04/25/2022 11:17 PM
[2022-04-26] MEDS: HYDROmorphone INJ 0.5 MG/0.5 ML SYR IV PRN ×6 (00:47→23:34)
[2022-04-26] MEDS: LACTATED RINGER'S 1,000 ML IV SCH ×2 (03:04→12:36)
[2022-04-26] MEDS: CEFEPIME 2,000 MG in SYRINGE 0 ML IV SCH (04:57)
--- NOTE | 2022-04-26 05:36 | Surgery Progress Note ---
Date of Service April 26, 2022 Assessment & Plan (1) Acute pancreatitis: Plan: Pancreatitis is likely secondary to cholelithiasis and choledocholithiasis. -ERCP performed on 04/25/2022 today Continue n.p.o. status Continue IV fluid for hydration due to pancreatitis Provide analgesics Provide antiemetics Continue antibiotics in the form of cefepime and Flagyl Follow serial labslabs this morning are pending Plan will be ultimately for cholecystectomy once patient has recovered from his pancreatitis. Additional recommendations be forthcoming based on his clinical course as it unfolds Admission and Anticipated Discharge Date Admission Date: April 24, 2022 Supervising Physician Co-Signing Physician Notes As per Russell Brown physician diver assistant The patient feels his abdomen is a little bit better but he is very thirsty The abdomen is distended there is no localized tenderness the patient denies any back pain The lab noted this morning deterioration of the renal function and pulse rate 112 Patient will need more fluid resuscitation given its extent of the pancreatitis and require more close monitoring we will discuss with the medical service Subjective Patient is resting comfortably in bed. He denies any nausea or vomiting. He notes that he has not had a bowel movement since admission. He does continue to report abdominal tenderness in the epigastric area and also in his lower abdomen. Physical Exam Gastrointestinal (Abdomen): Abdomen is mildly distended with hypoactive bowel sounds. Patient has pain noted with palpation greatest in the epigastric area and the right upper quadrant. There is no rebound tenderness or guarding. Results & Data ([facility]) Vital Signs (Past 12 Hours) Vital Signs Temp Pulse Resp BP BP Pulse Ox O2 Del Method 04/25/22 22:55 100 H 20 157/80 H 95 Room Air 04/25/22 22:05 37.0 C 105 H 18 165/81 H 94 Room Air 04/25/22 21:51 36.6 C 101 H 205/96 H 95 Room Air 04/25/22 19:43 36.6 C 100 H 20 184/92 H 95 Room Air 04/25/22 18:08 36.5 C 88 16 176/104 H 184/101 H 95 Room Air PG Care Time/CCT Total # of Minutes Spent Total Time Spent with Patient: Total time spent is greater than 50% in coordination of care (as documented) at patient's floor/unit and/or counseling patient: Coding Level of Care Code 58482 Subseq Hosp Care Lvl 1 Diagnoses Acute pancreatitis K85.90 Acute pancreatitis complication: unspecified Pancreatitis type: unspecified pancreatitis type (1) Acute pancreatitis Acute pancreatitis complication: unspecified Pancreatitis type: unspecified pancreatitis type Qualified Code(s): K85.90 - Acute pancreatitis without necrosis or infection, unspecified
[2022-04-26] MEDS: metroNIDAZOLE 500 MG/100 ML BAG IV SCH ×3 (05:47→21:59)
[2022-04-26] MEDS: METOPROLOL SUCC 50MG EXT REL TAB PO SCH ×2 (07:34→21:02)
[2022-04-26 07:37] LABS: Hematocrit (blood only) 41.4 % (40.1-51.0); Hemoglobin 14.1 g/dl (14.0-18.0); Mean Corpuscular Hemoglobin 30.8 pg (25.0-34.0); Mean Corpuscular Hgb Conc 34.1 g/dL (32.0-36.0); Mean Corpuscular Volume 90.4 fL (80.0-100.0); Mean Platelet Volume 12.2 fL (9.4-12.4); Platelet Count 165 K/uL (130-400); RDW Coefficient of Variation 13.8 % (11.5-14.5); RDW Standard Deviation 45.4 fL (36.4-46.3); Red Blood Count 4.58 M/uL (4.63-6.08); White Blood Count 13.02 K/ul (4.8-10.8)
[2022-04-26 08:04] LABS: Basophils # (auto) 0.05 K/uL (0-0.2); Basophils % (auto) 0.4 %; Echinocytes 1+; Immature Granulocytes # (auto) 0.16 K/uL (0.00-0.02); Immature Granulocytes % (auto) 1.2 %; Lymphocytes # (auto) 0.56 K/uL (1.2-3.4); Lymphocytes % (auto) 4.3 %; Monocytes # (auto) 0.99 K/uL (0.24-0.82); Monocytes % (auto) 7.6 %; Neutrophils # (auto) 11.26 K/uL (1.4-6.5); Neutrophils % (auto) 86.5 %; Toxic Granulation 1+
[2022-04-26 08:38] LABS: Albumin Globulin Ratio 1.2 (0.9-2); Albumin Level 3.2 gm/dl (3.4-5.0); BUN Creatinine Ratio 17.2 (10-20); Bilirubin,Total 2.2 mg/dl (0.2-1.0); Creatinine Clr Calc Pharmacy 28.4 ml/min; Est GFR (African American) 25.9 ml/min; Est GFR (Non-African American) 22.3 ml/min; Globulin 2.6 gm/dl (2.5-4.0); Magnesium 1.6 mg/dl (1.7-2.4); Phosphorus 3.3 mg/dl (2.5-4.9); Potassium 5.1 mmol/L (3.5-5.1); Total Protein 5.8 gm/dl (6.0-8.3)
[2022-04-26] MEDS ORDERED: amLODIPine BESYLATE 5 MG TAB PO SCH (09:00)
[2022-04-26] MEDS ORDERED: METOPROLOL SUCC 25MG EXT REL TAB PO SCH (09:00)
[2022-04-26] MEDS: MAGNESIUM SULFATE / D5W 1 GM/100 ML BAG IV SCH ×2 (09:05→11:10)
--- NOTE | 2022-04-26 10:41 | Gastroenterology Progress Note ---
Date of Service April 26, 2022 Assessment & Plan (1) Abdominal pain, acute, epigastric: (2) Cholangitis: (3) Gallstone pancreatitis: Plan: Continue broad spectrum Abx as per the primary team, currently on Cefepime and Metronidazole Continue PRN Antiemetics and analgesics as per the primary team Surgery following and will make recommendations regarding cholecystectomy when medically appropriate Continue supportive care Admission and Anticipated Discharge Date Admission Date: April 24, 2022 Subjective Still complaining of abdominal pain, though lower at present, and feels, "musculoskeletal, or maybe I need to have a bowel movement." He denies any fevers, chills, nausea, vomiting, hematemesis, melena, or hematochezia. He has been getting some relief of pain with PRN pain meds. He states that he is waiting to talk with surgery regarding the timing of his cholecystectomy. Review of Systems Review of Systems: All systems reviewed & are unremarkable except as noted in HPI & below Physical Exam Constitutional: WD/WN, vitals as above Respiratory: normal respiratory effort, lungs clear to auscultation Cardiovascular: RRR, no murmur, no edema Gastrointestinal (Abdomen): Inspection/Auscultation: + abdomen distended and normal bowel sounds Percussion/Palpation: + abdomen tender and abdomen soft Skin: no rashes, warm and dry Psychiatric: A+Ox3, euthymic affect Results & Data Results & Data ([facility]) Vital Signs (Past 12 Hours) Vital Signs Temp Pulse Resp BP Pulse Ox O2 Del Method 04/26/22 07:21 36.5 C 112 H 18 162/83 H 96 Room Air 04/25/22 22:55 100 H 20 157/80 H 95 Room Air PG Care Time/CCT Total # of Minutes Spent Total Time Spent with Patient: Total time spent is greater than 50% in coordination of care (as documented) at patient's floor/unit and/or counseling patient: Coding Level of Care Code 41348 Subseq Hosp Care Lvl 3 Diagnoses Abdominal pain, acute, epigastric R10.13 Cholangitis K83.09 Gallstone pancreatitis K85.10
[2022-04-26] MEDS: SODIUM CHLORIDE 0.9% 1000ML 1,000 ML IV SCH ×2 (12:41→22:00)
--- NOTE | 2022-04-26 13:36 | Consultation Report ---
NEPHROLOGY CONSULTATION NOTE DATE OF SERVICE: 04/26/2022 REASON FOR CONSULTATION: Acute renal failure in a patient with acute pancreatitis. HISTORY OF PRESENT ILLNESS: The patient is a 62-year-old male who presented to the hospital 2 days a go with abdominal pain followed by nausea, vomiting. He does not have history of prior episodes. No chest pain, shortness of breath. Did not have any urinary complaints. He felt he might have had so me fever and chills, but was not very prominent. Appetite was poor for many days now. He does not dr ink heavy alcohol amount. He was found to have pancreatitis related with gallstone. At the time of admission, his creatinine was 1.74, which is already higher than his baseline of 1.3. He received so me IV fluid and the next day, he underwent retro cholangiopancreatogram which involved contrast agent . He had biliary and pancreatic duct stent placed yesterday. Creatinine has been rising since admis lydia from 1.74 to 1.90 and this morning was even higher at 2.90. The patient is not making a lot of urine. He is currently strictly n.p.o. and he is getting some IV fluid. His blood pressure mostly h as been high, but at this moment, it is controlled. He is still somewhat tachycardic and still has b kimani pain. His lipase was extremely high at the time of admission at 2420, this morning it is down t o 1500. Kidneys showed some perinephric stranding bilaterally, but otherwise unremarkable. The iliana ent also received few doses of indomethacin for pain control within the last few days. Does not have a history of diabetes, kidney disease, childhood kidney disease or family history of kidney disease. There is plan to do cholecystectomy eventually. PAST MEDICAL AND SURGICAL HISTORY: Includes hypertension, history of H. pylori gastritis, prediabete s, back surgery. FAMILY HISTORY: Negative for renal disease or dialysis. PERSONAL AND SOCIAL HISTORY: Nonsmoker, very occasional alcohol. 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 ALLERGIES: Reviewed. MEDICATIONS: Home medication list was reviewed and is as per the H and P and the reconciliation list . REVIEW OF SYSTEMS: As per HPI; unless stated otherwise, 12 systems reviewed and negative. PHYSICAL EXAMINATION: GENERAL: A middle-aged white male who is slightly uncomfortable. He is still complaining of some ab dominal pain. He is awake, alert, oriented x 3, normal speech. Was able to give me a detailed accou nt of his medical problem. CHEST: Bilaterally clear to auscultation. CARDIOVASCULAR: S1 and S2, regular. ABDOMEN: Some distention and tenderness diffusely. EXTREMITIES: Show no edema. NEUROLOGIC: Awake, alert and oriented. Normal speech. Moving all 4 extremities. LABORATORY TEST: Creatinine was 1.34 a year ago, on admission was 1.74, then went to 1.9 and this mo rning is even higher at 2.90. Blood work from this morning showed sodium 137, potassium 5.1, BUN 50, creatinine 2.9. Lipase was very high on admission at 2400, now is trending down. Liver enzymes are also trending down. Albumin is 3.2, magnesium slightly low at 1.6. Chest x-ray unremarkable. CT ab domen and pelvis shows some perinephric stranding, otherwise unremarkable. ASSESSMENT AND PLAN: A 62-year-old male with acute gallstone pancreatitis, status post stenting done yesterday and now with acute renal failure. I have been consulted for acute renal failure. 1. Acute renal failure: This is in the setting of acute pancreatitis, which was quite severe with l ipase level as high as 2400. His creatinine was already rising even before he got the contrast agent yesterday. It is not unusual to see acute renal failure in the setting of acute pancreatitis. Tammy prado, at this time, we do not know what the peak creatinine would be as it is still rising fairly fast . Given that he is strictly n.p.o., I would like to give him some IV fluid. His potassium has been rising, so I would like to stop the Ringer's lactate and instead use normal saline at 100 mL per hour and give at least about 2 liters or so within the next 24 hours, strictly avoid any type of NSAIDs, contrast agent, nephrotoxic medicines, antibiotics. Continue daily labs. Continue to monitor input and output charting. Given that this is more likely acute tubular necrosis in the setting of acute p ancreatitis and contrast exposure, we do not know how far the kidney decline will go. In any case, jae riddleen that he is otherwise quite healthy without diabetes, heart disease, so the chances are he will r ecover sooner than later. Thank you very much. Job ID: [id number]
--- NOTE | 2022-04-26 16:32 | Hospitalist Progress Note ---
Date of Service April 26, 2022 Assessment & Plan (1) Acute pancreatitis: Plan: Likely secondary to gallstones Choledocholithiasis Possible acute cholangitis 04/25 status post ERCP with pancreatic and bile duct stent placement Still having some abdominal pain although improving Continue n.p.o. Continue cefepime plus Flagyl Follow-up blood cultures Fluids changed to IV NSS 125 cc/h per nephrology service recommendation General surgery following for plans regarding cholecystectomy GI service following Continue to monitor closely Acute renal failure Likely secondary to acute pancreatitis Creatinine trending up, now at 2.9 Hospital Manager consulted LR changed to NSS Monitor closely Complicated UTI ruled out Urine culture: HEAD: No headache, dizziness, or head injury. Blood cultures pending Continue IV cefepime Hypertension Lisinopril on hold in light of acute renal failure Amlodipine 5 mg p.o. daily started Continue metoprolol As needed hydralazine prediabetes, remote hemoglobin A1c of 5.7 from January 2018 A1c 5.7 DVT prophylaxis per Heparin subcu Full code Disposition Pending Anticipate discharge to home when medically stable plan of care discussed with patient in detail and at length all questions answered he is understanding, agreeable, comfortable with the plan of care Admission and Anticipated Discharge Date Admission Date: April 24, 2022 Subjective Follow-up for acute pancreatitis, possible acute cholangitis, acute renal failure, etc. Seen resting bed, comfortable, not distressed States he still having abdominal pain, worse with movement Seems to be improved compared to yesterday No nausea No BMs yet Reports sensation of incomplete voiding No fevers or chills no chest pain, dyspnea, palpitations, dizziness No other symptom Review of Systems Review of Systems: all noted and negative except for above Physical Exam Physical Exam: General- oriented x 3, not in distress, speaks in sentences with no effort or accessory muscle use Eyes- anicteric Neck- no JVD Lungs- clear breath sounds bilaterally, no crackles or wheezing Heart- normal rate, regular rhythm; no murmurs Abdomen- normal bowel sounds, nondistended, soft, mild epigastric tenderness Extremities- no pretibial edema, no calf tenderness Neuro- alert, oriented x 3; no gross focal neurologic deficits Skin- warm & dry Results & Data Results & Data ([facility]) Vital Signs (Past 12 Hours) Vital Signs Temp Pulse Resp BP Pulse Ox O2 Del Method 04/26/22 15:27 36.8 C 106 H 16 153/78 H 94 Room Air 04/26/22 11:38 36.8 C 102 H 16 131/76 93 Room Air 04/26/22 07:21 36.5 C 112 H 18 162/83 H 96 Room Air all noted and reviewed including below (1) Acute pancreatitis Acute pancreatitis complication: unspecified Pancreatitis type: unspecified pancreatitis type Qualified Code(s): K85.90 - Acute pancreatitis without necrosis or infection, unspecified
[2022-04-26] MEDS: LORazepam 0.5 MG TAB PO PRN (20:40)
[2022-04-26] MEDS: oxyCODONE HCL IR 5 MG TAB (IMMEDIATE RELEASE) PO PRN (22:01)
[2022-04-27] MEDS ORDERED: CEFEPIME 1,000 MG in SYRINGE 0 ML IV SCH (05:00)
--- NOTE | 2022-04-27 05:15 | Surgery Progress Note ---
Date of Service April 27, 2022 Assessment & Plan (1) Acute pancreatitis: Plan: Pancreatitis is likely secondary to cholelithiasis and choledocholithiasis. -ERCP performed on 04/25/2022 Continue n.p.o. status Continue IV fluid for hydration due to pancreatitis Provide analgesics Provide antiemetics Continue antibiotics in the form of cefepime and Flagyl Continue to follow serial labs Nephrology is seeing secondary to acute kidney injury; continue to avoid nephrotoxins Plan will be for cholecystectomy once he is further recovered from his pancreatitis and his renal function has improved Admission and Anticipated Discharge Date Admission Date: April 24, 2022 Supervising Physician Co-Signing Physician Notes Patient is much better today less abdominal discomfort does not have the need of water is much as he had yesterday urine output is up heart rate is 100 down path pending Continue resuscitation for significant pancreatitis prior to proceeding for cholecystectomy Lab this morning is pending Subjective Patient is resting comfortably in bed. He notes his abdominal pain has improved over the past 12 to 24 hours. He notes he is passing flatus but has not yet had a bowel movement. He has not had any nausea or vomiting. Physical Exam Gastrointestinal (Abdomen): Abdomen has minimal distention and is improved from what was noted on previous exams. Bowel sounds are hypoactive. Patient continues to have some pain in the epigastric area but this is markedly less severe than it was noted on yesterday's exam. Results & Data ([facility]) Vital Signs (Past 12 Hours) Vital Signs Temp Pulse Resp BP Pulse Ox O2 Del Method 04/26/22 22:05 36.8 C 115 H 18 174/77 H 94 Room Air 04/26/22 20:40 36.6 C 110 H 20 163/96 H 97 Room Air PG Care Time/CCT Total # of Minutes Spent Total Time Spent with Patient: Total time spent is greater than 50% in coordination of care (as documented) at patient's floor/unit and/or counseling patient: Coding Level of Care Code 73329 Subseq Hosp Care Lvl 1 Diagnoses Acute pancreatitis K85.90 Acute pancreatitis complication: unspecified Pancreatitis type: unspecified pancreatitis type (1) Acute pancreatitis Acute pancreatitis complication: unspecified Pancreatitis type: unspecified pancreatitis type Qualified Code(s): K85.90 - Acute pancreatitis without necrosis or infection, unspecified
[2022-04-27] MEDS: metroNIDAZOLE 500 MG/100 ML BAG IV SCH ×3 (06:21→21:55)
[2022-04-27] MEDS: SODIUM CHLORIDE 0.9% 1000ML 1,000 ML IV SCH ×3 (06:21→21:27)
[2022-04-27] MEDS: METOPROLOL SUCC 25MG EXT REL TAB PO SCH ×2 (06:22→21:28)
[2022-04-27] MEDS: HYDROmorphone INJ 0.5 MG/0.5 ML SYR IV PRN ×4 (06:29→23:49)
[2022-04-27 08:39] LABS: BUN Creatinine Ratio 23.2 (10-20); Basophils # (auto) 0.04 K/uL (0-0.2); Basophils % (auto) 0.4 %; Bilirubin,Total 1.5 mg/dl (0.2-1.0); Calcium 7.1 mg/dl (8.5-10.1); Creatinine Clr Calc Pharmacy 39.8 ml/min; Echinocytes 1+; Est GFR (African American) 38.9 ml/min; Est GFR (Non-African American) 33.6 ml/min; Globulin 2.9 gm/dl (2.5-4.0); Hematocrit (blood only) 37.1 % (40.1-51.0); Hemoglobin 12.6 g/dl (14.0-18.0); Immature Granulocytes # (auto) 0.09 K/uL (0.00-0.02); Immature Granulocytes % (auto) 0.8 %; Lymphocytes # (auto) 0.56 K/uL (1.2-3.4); Mean Corpuscular Hemoglobin 30.2 pg (25.0-34.0); Mean Platelet Volume 12.1 fL (9.4-12.4); Monocytes # (auto) 0.79 K/uL (0.24-0.82); Monocytes % (auto) 7.1 %; Neutrophils # (auto) 9.65 K/uL (1.4-6.5); Neutrophils % (auto) 86.7 %; Phosphorus 2.5 mg/dl (2.5-4.9); Platelet Count 146 K/uL (130-400); Platelet Estimate Normal (Normal); Potassium 4.2 mmol/L (3.5-5.1); RDW Coefficient of Variation 14.1 % (11.5-14.5); RDW Standard Deviation 46.1 fL (36.4-46.3); Red Blood Count 4.17 M/uL (4.63-6.08); Total Protein 5.9 gm/dl (6.0-8.3); White Blood Count 11.13 K/ul (4.8-10.8)
[2022-04-27] MEDS ORDERED: amLODIPine BESYLATE 5 MG TAB PO SCH (09:00)
--- NOTE | 2022-04-27 09:57 | Nephrology Progress Note ---
Date of Service April 27, 2022 Assessment & Plan Admission and Anticipated Discharge Date Admission Date: April 24, 2022 Subjective S-no new issues. getting better. PHYSICAL EXAMINATION: GENERAL: A middle-aged white male who is slightly uncomfortable. He is still complaining of some abdominal pain. He is awake, alert, oriented x 3, normal speech. Was able to give me a detailed account of his medical problem. CHEST: Bilaterally clear to auscultation. CARDIOVASCULAR: S1 and S2, regular. ABDOMEN: Some distention and tenderness diffusely. EXTREMITIES: Show no edema. NEUROLOGIC: Awake, alert and oriented. Normal speech. Moving all 4 extremities. LABORATORY TEST: Better labs today. lower creat and lipase ASSESSMENT AND PLAN: A 62-year-old male with acute gallstone pancreatitis, status post stenting done yesterday and now with acute renal failure. I have been consulted for acute renal failure. 1. Acute renal failure: This is in the setting of acute pancreatitis, which was quite severe with lipase level as high as 2400. His creatinine was already rising even before he got the contrast agent yesterday. It is not unusual to see acute renal failure in the setting of acute pancreatitis. this is more likely acute tubular necrosis in the setting of acute pancreatitis and contrast exposure. Creat trending lower today so hopefully the worst is over. Continue iv fluids as he is NPO. Results & Data ([place]) Vital Signs (Past 12 Hours) Vital Signs Temp Pulse Resp BP Pulse Ox O2 Del Method 04/27/22 06:23 36.5 C 100 H 18 170/78 H 95 Room Air 04/26/22 22:05 36.8 C 115 H 18 174/77 H 94 Room Air
--- NOTE | 2022-04-27 13:41 | Gastroenterology Progress Note ---
Date of Service April 27, 2022 Assessment & Plan (1) Abdominal pain, acute, epigastric: (2) Cholangitis: (3) Gallstone pancreatitis: Plan: Continue broad spectrum Abx as per the primary team, currently on Cefepime and Metronidazole Continue PRN Antiemetics and analgesics as per the primary team Surgery following and will make recommendations regarding cholecystectomy when medically appropriate Continue supportive care Admission and Anticipated Discharge Date Admission Date: April 24, 2022 Subjective Feeling better today, with less pain in the abdomen. States that he is scared to take anything by mouth other than sips of water, as he is scared it will exacerbate his symptoms. He denies any fevers, chills, nausea, or vomiting. He denies any further complaints. Review of Systems Review of Systems: all noted and negative except for above Physical Exam Constitutional: WD/WN, vitals as above Respiratory: normal respiratory effort, lungs clear to auscultation Cardiovascular: RRR, no murmur, no edema Gastrointestinal (Abdomen): Inspection/Auscultation: + abdomen distended and normal bowel sounds Percussion/Palpation: + abdomen tender (throughout) and abdomen soft; no guarding and abdomen not rigid Psychiatric: Orientation: alert and oriented x 3 Mood: + anxious mood Results & Data Results & Data ([facility]) Vital Signs (Past 12 Hours) Vital Signs Temp Pulse Resp BP Pulse Ox O2 Del Method 04/27/22 06:23 36.5 C 100 H 18 170/78 H 95 Room Air PG Care Time/CCT Total # of Minutes Spent Total Time Spent with Patient: Total time spent is greater than 50% in coordination of care (as documented) at patient's floor/unit and/or counseling patient: Coding Level of Care Code 02044 Subseq Hosp Care Lvl 3 Diagnoses Abdominal pain, acute, epigastric R10.13 Cholangitis K83.09 Gallstone pancreatitis K85.10
--- NOTE | 2022-04-27 16:56 | Hospitalist Progress Note ---
Date of Service April 27, 2022 Assessment & Plan (1) Acute pancreatitis: Plan: Likely secondary to gallstones Choledocholithiasis Possible acute cholangitis 04/25 status post ERCP with pancreatic and bile duct stent placement Abdominal pain improving daily, but still has some distention Lipase continues to trend down currently 500 Afebrile Leukocytosis improved Renal function also improved Blood cultures negative so far Continue n.p.o. Continue cefepime plus Flagyl Fluids changed to IV NSS 125 cc/h per nephrology service recommendation General surgery following for plans regarding cholecystectomy--> discussed with Dr. Brewster, possible cholecystectomy during this admission once patient further improves clinically GI service following Continue to monitor closely Acute renal failure Likely secondary to acute pancreatitis Creatinine trending up, now at 2.9 Program Manufacturing Leader consulted LR changed to NSS 04/27 Creatinine improved to 2.0 Urine output increasing per patient Continue to monitor closely Complicated UTI ruled out Urine culture: HEAD: No headache, dizziness, or head injury. Blood cultures pending Continue IV cefepime Hypertension Lisinopril on hold in light of acute renal failure Still not controlled Likely from underlying acute pancreatitis, IV fluid Amlodipine 5 mg p.o. daily started-->increased to 10 mg p.o. daily Continue metoprolol As needed hydralazine May need hydralazine p.o. twice daily prediabetes, remote hemoglobin A1c of 5.7 from January 2018 A1c 5.7 DVT prophylaxis per Heparin subcu Full code Disposition Pending Anticipate discharge to home when medically stable plan of care discussed with patient in detail and at length all questions answered he is understanding, agreeable, comfortable with the plan of care Admission and Anticipated Discharge Date Admission Date: April 24, 2022 Subjective Follow-up for acute pancreatitis, possible acute cholangitis, acute renal failure, etc. Seen resting in bed, not in distress Reports abdominal pain continues to improve About 2 out of 10 today No BMs, positive flatus No fevers or chills No nausea no chest pain, dyspnea, palpitations, dizziness Voiding without problems, no urine output today as per patient No other symptoms Review of Systems Review of Systems: all noted and negative except for above Physical Exam Physical Exam: General- oriented x 3, not in distress, speaks in sentences with no effort or accessory muscle use Eyes- anicteric Neck- no JVD Lungs- clear BS BL Heart- normal rate, regular rhythm; no murmurs Abdomen- normal bowel sounds, moderately distended, soft, nontender Extremities- no pretibial edema, no calf tenderness Neuro- alert, oriented x 3; no gross focal neurologic deficits Skin- warm & dry Results & Data Results & Data ([facility]) Vital Signs (Past 12 Hours) Vital Signs Temp Pulse Resp BP Pulse Ox O2 Del Method 04/27/22 15:49 36.3 C L 115 H 18 164/80 H 96 Room Air 04/27/22 06:23 36.5 C 100 H 18 170/78 H 95 Room Air all noted and reviewed including below (1) Acute pancreatitis Acute pancreatitis complication: unspecified Pancreatitis type: unspecified pancreatitis type Qualified Code(s): K85.90 - Acute pancreatitis without necrosis or infection, unspecified
[2022-04-27] MEDS: CEFEPIME 1,000 MG in SYRINGE 0 ML IV SCH (17:10)
[2022-04-27] MEDS: oxyCODONE HCL IR 5 MG TAB (IMMEDIATE RELEASE) PO PRN (19:46)
[2022-04-27] MEDS: hydrALAZINE HCL 20 MG/ML VIAL IV PRN (21:38)
[2022-04-27] MEDS: LORazepam 0.5 MG TAB PO PRN (21:55)
[2022-04-27] MEDS ORDERED: METOPROLOL SUCC 25MG EXT REL TAB PO STA (22:56)
[2022-04-27] MEDS ORDERED: MAGNESIUM SULFATE / D5W 1 GM/100 ML BAG IV ONE (22:58)
--- NOTE | 2022-04-27 23:02 | Communication Note ---
Date of Service: April 27, 2022 Made aware by RN of controlled BP and heart rate. SBP 180s, heart rate 110s. Patient a little restless as per RN. AP Hypertensive urgency Med telemetry transfer Titrate home BP meds
[2022-04-27] MEDS ORDERED: LORazepam 0.5 MG TAB PO PRN (23:51)
[2022-04-27] MEDS ORDERED: LORazepam 0.5 MG in SYRINGE 0 ML IV PRN (23:52)
[2022-04-28] MEDS: oxyCODONE HCL IR 5 MG TAB (IMMEDIATE RELEASE) PO PRN ×3 (02:13→20:16)
[2022-04-28] MEDS: hydrALAZINE HCL 20 MG/ML VIAL IV PRN ×4 (03:37→23:18)
[2022-04-28] MEDS: CEFEPIME 1,000 MG in SYRINGE 0 ML IV SCH (05:17)
[2022-04-28] MEDS: SODIUM CHLORIDE 0.9% 1000ML 1,000 ML IV SCH (05:18)
[2022-04-28] MEDS: HYDROmorphone INJ 0.5 MG/0.5 ML SYR IV PRN ×3 (05:34→22:09)
[2022-04-28] MEDS: metroNIDAZOLE 500 MG/100 ML BAG IV SCH ×3 (05:47→22:24)
[2022-04-28] MEDS: amLODIPine BESYLATE 5 MG TAB PO SCH (06:24)
[2022-04-28 06:48] LABS: Hematocrit (blood only) 34.9 % (40.1-51.0); Hemoglobin 11.6 g/dl (14.0-18.0); Mean Corpuscular Hemoglobin 30.1 pg (25.0-34.0); Mean Corpuscular Hgb Conc 33.2 g/dL (32.0-36.0); Mean Corpuscular Volume 90.4 fL (80.0-100.0); Mean Platelet Volume 11.9 fL (9.4-12.4); Platelet Count 163 K/uL (130-400); RDW Coefficient of Variation 14.9 % (11.5-14.5); RDW Standard Deviation 49.3 fL (36.4-46.3); Red Blood Count 3.86 M/uL (4.63-6.08); White Blood Count 11.55 K/ul (4.8-10.8)
[2022-04-28 07:21] LABS: Basophils # (auto) 0.07 K/uL (0-0.2); Basophils % (auto) 0.6 %; Echinocytes 2+; Eosinophils # (auto) 0.04 K/uL (0-0.50); Eosinophils % (auto) 0.3 %; Immature Granulocytes % (auto) 4.3 %; Lymphocytes # (auto) 0.51 K/uL (1.2-3.4); Lymphocytes % (auto) 4.4 %; Monocytes # (auto) 1.02 K/uL (0.24-0.82); Monocytes % (auto) 8.8 %; Neutrophils # (auto) 9.41 K/uL (1.4-6.5); Neutrophils % (auto) 81.6 %
--- NOTE | 2022-04-28 07:38 | Surgery Progress Note ---
Date of Service April 28, 2022 Assessment & Plan (1) Acute pancreatitis: Plan: 04/28/22 patient overall is improved with significant pancreatitis his GI tract appears to slowly recover function May be able to start him on clear liquids today sparingly continue with rehydration liver functions improved yesterday lab this morning some pending Given the significance of his pancreatitis unless pushed to do surgery earlier we would like to wait as long as possible before proceeding with any elective surgery to remove his gallbladder Pancreatitis is likely secondary to cholelithiasis and choledocholithiasis. -ERCP performed on 04/25/2022 Continue n.p.o. status Continue IV fluid for hydration due to pancreatitis Provide analgesics Provide antiemetics Continue antibiotics in the form of cefepime and Flagyl Continue to follow serial labs Nephrology is seeing secondary to acute kidney injury; continue to avoid nephrotoxins Plan will be for cholecystectomy once he is further recovered from his pancreatitis and his renal function has improved Admission and Anticipated Discharge Date Admission Date: April 24, 2022 Subjective Still thirsty his belly feels better back pain persists passed some flatus Physical Exam Physical Exam: Alert coherent no distress taken in moderate amount of ice chips and water sips The abdomen still distended but softer no localized tenderness Results & Data ([facility]) Vital Signs (Past 12 Hours) Vital Signs Temp Pulse Pulse Resp BP BP Pulse Ox 04/28/22 07:20 112 H 04/28/22 06:45 36.7 C 112 H 24 183/93 H 96 04/28/22 04:46 174/83 H 04/28/22 04:42 36.6 C 109 H 20 175/88 H 96 04/28/22 03:31 36.8 C 101 H 16 186/80 H 95 04/28/22 00:42 104 H 16 177/93 H 94 04/27/22 23:47 110 H 04/27/22 23:41 36.7 C 112 H 16 185/81 H 96 04/27/22 23:41 04/27/22 22:34 36.8 C 116 H 18 176/83 H 95 04/27/22 21:22 37.7 C H 125 H 18 204/96 H 188/94 H 96 Pulse Ox O2 Del Method O2 Del Method 04/28/22 07:20 04/28/22 06:45 Room Air 04/28/22 04:46 04/28/22 04:42 Room Air 04/28/22 03:31 Room Air 04/28/22 00:42 Room Air 04/27/22 23:47 04/27/22 23:41 04/27/22 23:41 96 Room Air 04/27/22 22:34 Room Air 04/27/22 21:22 Room Air PG Care Time/CCT Total # of Minutes Spent Total Time Spent with Patient: Total time spent is greater than 50% in coordination of care (as documented) at patient's floor/unit and/or counseling patient: Coding Level of Care Code 79810 Subseq Hosp Care Lvl 3 Diagnoses Acute pancreatitis K85.90 Acute pancreatitis complication: unspecified Pancreatitis type: unspecified pancreatitis type (1) Acute pancreatitis Acute pancreatitis complication: unspecified Pancreatitis type: unspecified pancreatitis type Qualified Code(s): K85.90 - Acute pancreatitis without necrosis or infection, unspecified
[2022-04-28 07:41] LABS: Albumin Level 2.9 gm/dl (3.4-5.0); BUN Creatinine Ratio 30.1 (10-20); Bilirubin,Total 1.1 mg/dl (0.2-1.0); Calcium 7.5 mg/dl (8.5-10.1); Creatinine Clr Calc Pharmacy 60.6 ml/min; Est GFR (African American) 64.6 ml/min; Est GFR (Non-African American) 55.8 ml/min; Globulin 2.8 gm/dl (2.5-4.0); Phosphorus 2.2 mg/dl (2.5-4.9); Potassium 3.9 mmol/L (3.5-5.1); Total Protein 5.7 gm/dl (6.0-8.3)
[2022-04-28] MEDS: METOPROLOL SUCC 50MG EXT REL TAB PO SCH ×2 (08:16→20:16)
[2022-04-28] MEDS ORDERED: METOPROLOL SUCC 50MG EXT REL TAB PO SCH (09:00)
--- NOTE | 2022-04-28 09:49 | Gastroenterology Progress Note ---
Date of Service April 28, 2022 Assessment & Plan (1) Abdominal pain, acute, epigastric: Plan: 62 year old male s/p urgent endoscopic ultrasound and ERCP this afternoon for suspected gallstone pancreatitis and possible cholangitis s/p prophylactic pancreatic stent was placed and a biliary stent was placed Can continue clear liquids LR 150 mL/HR until tolerating liquids diet CCY per general surgery Avoid anticoagulation and nonsteroidals for 5 days Broad-spectrum antibiotic coverage Continued monitoring of CONTRACT MANAGER which is improving and LFTs which have nearly normalized Thank you for allowing us to participate in the care of this patient. Please call with any acute changes, questions or concerns. Please see addendum below with additional recommendation from my supervising physician. (2) Cholangitis: (3) Gallstone pancreatitis: Admission and Anticipated Discharge Date Admission Date: April 24, 2022 Supervising Physician Co-Signing Physician Notes I have seen and examined the patient - sleepy but arousable PE as above. s/p eus and ercp for cholangitis. Agree with further plan as above. Subjective Feeling better Pain more controlled No nausea, vomiting Is trying liquids this AM Review of Systems Review of Systems: All systems reviewed & are unremarkable except as noted in HPI & below Physical Exam Constitutional: WD/WN, vitals as above Respiratory: normal respiratory effort, lungs clear to auscultation Cardiovascular: Rate/Rhythm: regular rate and regular rhythm Gastrointestinal (Abdomen): normal bowel sounds, soft, nontender, no hepatosplenomegaly Skin: no rashes, warm and dry Results & Data ([facility]) Vital Signs (Past 12 Hours) Vital Signs Temp Pulse Pulse Resp BP BP Pulse Ox 04/28/22 07:20 112 H 04/28/22 06:45 36.7 C 112 H 24 183/93 H 96 04/28/22 04:46 174/83 H 04/28/22 04:42 36.6 C 109 H 20 175/88 H 96 04/28/22 03:31 36.8 C 101 H 16 186/80 H 95 04/28/22 00:42 104 H 16 177/93 H 94 04/27/22 23:47 110 H 04/27/22 23:41 36.7 C 112 H 16 185/81 H 96 04/27/22 23:41 04/27/22 22:34 36.8 C 116 H 18 176/83 H 95 Pulse Ox O2 Del Method O2 Del Method 04/28/22 07:20 04/28/22 06:45 Room Air 04/28/22 04:46 04/28/22 04:42 Room Air 04/28/22 03:31 Room Air 04/28/22 00:42 Room Air 04/27/22 23:47 04/27/22 23:41 04/27/22 23:41 96 Room Air 04/27/22 22:34 Room Air Laboratory Results 04/28/22 04/28/22 04/27/22 Range/Units 06:10 06:10 07:49 WBC 11.55 H (4.8-10.8) K/ul RBC 3.86 L (4.63-6.08) M/uL Hgb 11.6 L (14.0-18.0) g/dl Hct 34.9 L (40.1-51.0) % MCV 90.4 (80.0-100.0) fL MCH 30.1 (25.0-34.0) pg MCHC 33.2 (32.0-36.0) g/dL RDW Std Deviation 49.3 H (36.4-46.3) fL RDW Coeff of Fred 14.9 H (11.5-14.5) % Plt Count 163 (130-400) K/uL MPV 11.9 (9.4-12.4) fL Immature Gran % (Auto) 4.3 % Neut % (Auto) 81.6 % Lymph % (Auto) 4.4 % Pitkin % (Auto) 8.8 % Eos % (Auto) 0.3 % Baso % (Auto) 0.6 % Neut # (Auto) 9.41 H (1.4-6.5) K/uL Lymph # (Auto) 0.51 L (1.2-3.4) K/uL Pitkin # (Auto) 1.02 H (0.24-0.82) K/uL Eos # (Auto) 0.04 (0-0.50) K/uL Baso # (Auto) 0.07 (0-0.2) K/uL Immature Gran # (Auto) 0.50 H (0.00-0.02) K/uL Echinocytes 2+ Sodium 143 (136-145) mmol/L Potassium 3.9 (3.5-5.1) mmol/L Chloride 113 H (98-107) mmol/L Carbon Dioxide 24 (21-32) mmol/L Anion Gap 6 (3-11) BUN 41 H (6-23) mg/dl Creatinine 1.36 D (0.6-1.4) mg/dl Est Cr Clr Drug Dosing 60.6 ml/min Est GFR ( Amer) 64.6 ml/min Est GFR (Non-Af Amer) 55.8 ml/min BUN/Creatinine Ratio 30.1 H (10-20) Glucose 201 H (70-99(Fasting)) mg/dl Calcium 7.5 L (8.5-10.1) mg/dl Phosphorus 2.2 L (2.5-4.9) mg/dl Magnesium 2.4 (1.7-2.4) mg/dl Total Bilirubin 1.1 H (0.2-1.0) mg/dl AST 28 (13-39) U/L ALT 81 H (7-52) U/L Alkaline Phosphatase 88 (34-104) U/L Total Protein 5.7 L (6.0-8.3) gm/dl Albumin 2.9 L (3.4-5.0) gm/dl Globulin 2.8 (2.5-4.0) gm/dl Albumin/Globulin Ratio 1.0 (0.9-2) Lipase 138 H (11-82) U/L
[2022-04-28] MEDS: POT PHOSPHATE MONOBASIC W/ SOD TAB PO SCH ×4 (10:28→20:16)
[2022-04-28] MEDS: lisinopril 40 MG TAB PO SCH (16:35)
[2022-04-28] MEDS: CEFEPIME 2,000 MG in SYRINGE 0 ML IV SCH (16:35)
--- NOTE | 2022-04-28 16:56 | Hospitalist Progress Note ---
Date of Service April 28, 2022 Assessment & Plan (1) Acute pancreatitis: Plan: Likely secondary to gallstones Choledocholithiasis Possible acute cholangitis 04/25 status post ERCP with pancreatic and bile duct stent placement Abdominal pain continues to improve, still has mild abdominal distention Lipase continues to trend down currently 138 from 2006 Afebrile Leukocytosis improved Renal function back to baseline Blood cultures negative Monitor while on clear liquid Continue cefepime plus Flagyl Fluids changed to IV NSS 125 cc/h per nephrology service recommendation General surgery following for plans regarding cholecystectomy--> discussed with Dr. Brewster, possible cholecystectomy during this admission once patient further improves clinically GI service following Continue to monitor closely Acute renal failure Likely secondary to acute pancreatitis, exposure to IV contrast Creatinine trended up to 2.9 Perennial House Manager consulted LR changed to NSS 04/28 Creatinine improved to 1.3 Continue to monitor closely Complicated UTI ruled out Urine culture: HEAD: No headache, dizziness, or head injury. Blood cultures negative Hypertension Still not controlled Likely from underlying acute pancreatitis, IV fluid Amlodipine 5 mg p.o. daily started-->increased to 10 mg p.o. daily Resume usual lisinopril Continue metoprolol As needed hydralazine May need hydralazine p.o. twice daily prediabetes, remote hemoglobin A1c of 5.7 from January 2018 A1c 5.7 DVT prophylaxis per Heparin subcu Full code Disposition Pending Anticipate discharge to home when medically stable plan of care discussed with patient in detail and at length all questions answered he is understanding, agreeable, comfortable with the plan of care Admission and Anticipated Discharge Date Admission Date: April 24, 2022 Subjective Follow-up for acute pancreatitis, acute renal failure, acute cholangitis, etc. Seen resting in bed, comfortable, not in distress States he feels improved today compared to yesterday Abdominal pain is less Tolerating clear liquid diet so far No other symptoms Review of Systems Review of Systems: all noted and negative except for above Physical Exam Physical Exam: General- oriented x 3, not in distress, speaks in sentences with no effort or accessory muscle use Eyes- anicteric Neck- no JVD Lungs- clear breath sounds bilaterally, no crackles or wheezing Heart- normal rate, regular rhythm; no murmurs Abdomen- normal bowel sounds, minimally distended, soft, nontender Extremities- no pretibial edema, no calf tenderness Neuro- alert, oriented x 3; no gross focal neurologic deficits Skin- warm & dry Results & Data Results & Data ([facility]) Vital Signs (Past 12 Hours) Vital Signs Temp Pulse Pulse Resp BP BP Pulse Ox 04/28/22 15:18 36.4 C L 111 H 18 195/82 H 192/85 H 95 04/28/22 11:42 37.0 C 108 H 20 185/100 H 96 04/28/22 07:20 112 H 04/28/22 06:45 36.7 C 112 H 24 183/93 H 96 O2 Del Method 04/28/22 15:18 Room Air 04/28/22 11:42 Room Air 04/28/22 07:20 04/28/22 06:45 Room Air all noted and reviewed including below (1) Acute pancreatitis Acute pancreatitis complication: unspecified Pancreatitis type: unspecified pancreatitis type Qualified Code(s): K85.90 - Acute pancreatitis without necrosis or infection, unspecified
--- NOTE | 2022-04-28 21:33 | Communication Note ---
Date of Service: April 28, 2022 Made aware of uncontrolled BP SBP 190s, heart rate 110s Change Lopressor to Coreg.
[2022-04-28] MEDS ORDERED: carvediloL 3.125 MG TAB PO SCH (21:45)
[2022-04-28] MEDS: MELATONIN 3 MG TAB PO PRN (22:24)
[2022-04-29] MEDS: CEFEPIME 2,000 MG in SYRINGE 0 ML IV SCH ×2 (01:07→14:24)
[2022-04-29] MEDS: hydrALAZINE HCL 20 MG/ML VIAL IV PRN ×3 (04:35→14:24)
[2022-04-29] MEDS: oxyCODONE HCL IR 5 MG TAB (IMMEDIATE RELEASE) PO PRN (04:35)
[2022-04-29] MEDS: metroNIDAZOLE 500 MG/100 ML BAG IV SCH ×3 (05:46→22:10)
--- NOTE | 2022-04-29 07:13 | Surgery Progress Note ---
Date of Service April 29, 2022 Assessment & Plan (1) Acute pancreatitis: Plan: 04/29/22 continues to make improvement his renal function is greatly improved chemically and clinically He tolerated a clear liquid diet With surgery and increase to full liquid diet today Addendum lab from this morning was reviewed the patient has increased leukocytosis left shift therefore we will order CT scan of the abdomen pelvis to follow-up on a pancreatitis to rule out the possibility of abscess formation 04/28/22 patient overall is improved with significant pancreatitis his GI tract appears to slowly recover function May be able to start him on clear liquids today sparingly continue with rehydration liver functions improved yesterday lab this morning some pending Given the significance of his pancreatitis unless pushed to do surgery earlier we would like to wait as long as possible before proceeding with any elective surgery to remove his gallbladder Pancreatitis is likely secondary to cholelithiasis and choledocholithiasis. -ERCP performed on 04/25/2022 Continue n.p.o. status Continue IV fluid for hydration due to pancreatitis Provide analgesics Provide antiemetics Continue antibiotics in the form of cefepime and Flagyl Continue to follow serial labs Nephrology is seeing secondary to acute kidney injury; continue to avoid nephrotoxins Plan will be for cholecystectomy once he is further recovered from his pancreatitis and his renal function has improved Admission and Anticipated Discharge Date Admission Date: April 24, 2022 Subjective Was up and around without any significant discomfort States his back pain is a little bit better continues to pass flatus but no bowel movements yet 's main concern is his high blood pressure Physical Exam Physical Exam: Alert coherent moving around without any restrictions Sclera minimally icteric Oral mucosa moist The abdomen generally softer nontender Results & Data ([facility]) Vital Signs (Past 12 Hours) Vital Signs Temp Pulse Pulse Resp BP Pulse Ox O2 Del Method 04/29/22 05:47 100 H 180/84 H 04/29/22 04:30 36.8 C 99 H 18 180/85 H 94 Room Air 04/29/22 00:00 98 H 144/81 H 04/28/22 22:20 104 H 04/28/22 23:02 175/77 H 04/28/22 22:14 36.7 C 107 H 18 176/83 H 93 Room Air 04/28/22 21:23 109 H 191/82 H 04/28/22 19:23 36.9 C 112 H 24 175/72 H 95 Room Air PG Care Time/CCT Total # of Minutes Spent Total Time Spent with Patient: Total time spent is greater than 50% in coordination of care (as documented) at patient's floor/unit and/or counseling patient: Coding Level of Care Code 98686 Subseq Hosp Care Lvl 3 Diagnoses Acute pancreatitis K85.90 Acute pancreatitis complication: unspecified Pancreatitis type: unspecified pancreatitis type (1) Acute pancreatitis Acute pancreatitis complication: unspecified Pancreatitis type: unspecified pancreatitis type Qualified Code(s): K85.90 - Acute pancreatitis without necrosis or infection, unspecified
[2022-04-29] MEDS ORDERED: carvediloL 3.125 MG TAB PO SCH (07:30)
[2022-04-29 07:54] LABS: Hematocrit (blood only) 34.4 % (40.1-51.0); Hemoglobin 11.8 g/dl (14.0-18.0); Mean Corpuscular Hgb Conc 34.3 g/dL (32.0-36.0); Mean Corpuscular Volume 87.5 fL (80.0-100.0); Mean Platelet Volume 11.2 fL (9.4-12.4); Platelet Count 173 K/uL (130-400); RDW Coefficient of Variation 15.1 % (11.5-14.5); RDW Standard Deviation 48.8 fL (36.4-46.3); Red Blood Count 3.93 M/uL (4.63-6.08); White Blood Count 14.58 K/ul (4.8-10.8)
[2022-04-29] MEDS: POT PHOSPHATE MONOBASIC W/ SOD TAB PO SCH ×4 (08:04→20:04)
[2022-04-29] MEDS: lisinopril 40 MG TAB PO SCH (08:05)
[2022-04-29] MEDS: amLODIPine BESYLATE 5 MG TAB PO SCH (08:05)
[2022-04-29 08:16] LABS: Basophils # (auto) 0.12 K/uL (0-0.2); Basophils % (auto) 0.8 %; Echinocytes 1+; Eosinophils # (auto) 0.07 K/uL (0-0.50); Eosinophils % (auto) 0.5 %; Immature Granulocytes # (auto) 1.14 K/uL (0.00-0.02); Immature Granulocytes % (auto) 7.8 %; Lymphocytes # (auto) 0.75 K/uL (1.2-3.4); Lymphocytes % (auto) 5.1 %; Monocytes # (auto) 1.45 K/uL (0.24-0.82); Monocytes % (auto) 9.9 %; Neutrophils # (auto) 11.05 K/uL (1.4-6.5); Neutrophils % (auto) 75.9 %; Toxic Granulation 1+
[2022-04-29 08:20] LABS: Albumin Level 2.9 gm/dl (3.4-5.0); BUN Creatinine Ratio 30.5 (10-20); Calcium 7.7 mg/dl (8.5-10.1); Creatinine Clr Calc Pharmacy 73.5 ml/min; Est GFR (African American) 76.7 ml/min; Est GFR (Non-African American) 66.2 ml/min; Globulin 2.8 gm/dl (2.5-4.0); Potassium 3.7 mmol/L (3.5-5.1); Total Protein 5.7 gm/dl (6.0-8.3)
[2022-04-29] MEDS ORDERED: hydrALAZINE HCL 25 MG TAB PO SCH (09:00)
--- NOTE | 2022-04-29 13:53 | CT Scan Report ---
ABDOMEN AND PELVIS CT WITHOUT CONTRAST CT DOSE: 957.85 mGy.cm HISTORY: Epigastric pain. follow up pancreatitis TECHNIQUE: Multiaxial CT images of the abdomen and pelvis were performed without contrast. A dose lo wering technique was utilized adhering to the principles of ALARA. COMPARISON STUDY: Abdomen and pelvis CT 04/24/2022. FINDINGS: Interval development of a small left pleural effusion. Bibasilar densities favor subsegment al atelectasis. No fractures within the visualized osseous structures. Interval placement of a main p ancreatic duct stent and a common bile duct stent which appear in good position. There are 2 addition al small metallic densities within the junction of the second/third portion of duodenum which are con sistent with vascular clips. Trace pneumobilia consistent with patency of the common bile duct stent. No hepatic or splenic masses. Mild gallbladder wall thickening which may be related to the patient's diffuse edematous state. There is a small amount of ascites which is progressed in the interval. The adrenal glands are unremarkable. There are few punctate bilateral renal calculi. No ureteral calculi . No hydronephrosis. Progressive peripancreatic inflammatory change and edema consistent with the pat ient's history of acute pancreatitis. Areas of heterogeneity within the pancreas could be due to the interstitial edema or developing pancreatic necrosis. This is difficult to assess on this noncontrast study. No loculated peripancreatic fluid collections identified at this time. No retroperitoneal lym phadenopathy. The bladder is unremarkable. There is a small fat-containing right inguinal hernia. The re is moderate body wall edema which has progressed. Colonic diverticulosis. No evidence for acute di verticulitis. Surgical clips at the cecal base are noted. The appendix is unremarkable. Mild thickeni ng of the descending colon which may be reactive to the pancreatitis. A nonspecific colitis could als o have a similar appearance. IMPRESSION: 1. Interval progression of the acute pancreatitis demonstrated by progressive peripancreatic fluid/in flammatory change. No loculated fluid collections identified at this time. 2. Heterogeneous enhancement within the pancreas which raises the possibility of developing pancreati c necrosis. This is difficult to assess on this noncontrast study. 3. The common bile duct stent and main pancreatic duct stent appear in good position. 3. Moderate body wall edema with a small left pleural effusion and a small amount of ascites. This [place] s progressed in the interval. 5. Mild gallbladder wall thickening and mild thickening within the duodenum which is likely reactive to the acute pancreatitis. 6. There is mild thickening within the descending colon which could also be related to the adjacent p ancreatitis or a nonspecific colitis. 7. Additional findings as described above ACT 112: Negative or not required by law. Electronically signed by: Juan Luis Sullivan M.D. 04/29/2022 1:51 PM
--- NOTE | 2022-04-29 14:53 | Nephrology Progress Note ---
Date of Service April 29, 2022 Assessment & Plan (1) BEN (acute kidney injury): Plan: A 62-year-old male with acute gallstone pancreatitis, status post stenting and now with acute renal failure. Acute renal failure: This is in the setting of acute pancreatitis - likely acute tubular necrosis in the setting of acute pancreatitis and contrast exposure. - BEN has resolved and he is now tolerating oral fluids. - No need for IV fluids. Nephrology will sign off.Please call back with questions or concerns. (2) Hypertension: Plan: Agree with adding Hydralazine regularly, increase to TID - recommend increasing carvedilol to 6.25 mg BID, - Continue on Amlodipine 10 (3) Cholangitis: (4) Acute pancreatitis: Admission and Anticipated Discharge Date Admission Date: April 24, 2022 Subjective c/o back discomfort no N/v/ fever, Able to tolerate fluids Review of Systems Review of Systems: All systems reviewed & are unremarkable except as noted in HPI & below Physical Exam Physical Exam: PHYSICAL EXAMINATION: GENERAL:slightly uncomfortable,complaining of abdominal pain. He is awake, a lert, oriented x 3, normal speech. Was able to give me a detailed account of his medical problem. CHEST: Bilaterally clear to auscultation. CARDIOVASCULAR: S1 and S2, regular. ABDOMEN: Some distention and tenderness diffusely. EXTREMITIES: Show no edema. NEUROLOGIC: Awake, alert and oriented. Normal speech. Moving all 4 extremities. Results & Data ([facility]) Vital Signs (Past 12 Hours) Vital Signs Temp Pulse Resp BP Pulse Ox O2 Del Method 04/29/22 08:00 Room Air 04/29/22 11:34 36.5 C 104 H 20 175/77 H 94 Room Air 04/29/22 07:44 36.9 C 102 H 20 169/78 H 94 Room Air 04/29/22 05:47 100 H 180/84 H 04/29/22 04:30 36.8 C 99 H 18 180/85 H 94 Room Air Laboratory Results 04/29/22 07:22 04/29/22 07:22 (1) Acute pancreatitis Acute pancreatitis complication: unspecified Pancreatitis type: unspecified pancreatitis type Qualified Code(s): K85.90 - Acute pancreatitis without necrosis or infection, unspecified
--- NOTE | 2022-04-29 15:54 | Hospitalist Progress Note ---
Date of Service April 29, 2022 Assessment & Plan (1) Acute pancreatitis: Plan: Acute pancreatitis likely secondary to gallstone pancreatitis Choledocholithiasis Possible acute cholangitis 04/25 status post ERCP with pancreatic and bile duct stent placement Clinically improving overall gradually Abdominal pain gradually improved, very minimal now Lipase trended down to 138 from 1999s Remained afebrile Leukocytosis improved Renal function back to baseline Blood cultures negative Diet advanced to full liquids today Continue cefepime plus Flagyl Completed IV fluids General surgery following for plans regarding cholecystectomy--> discussed with Dr. Brewster, possible cholecystectomy during this admission once patient further improves clinically GI service following Acute renal failure Likely secondary to acute pancreatitis, exposure to IV contrast Creatinine trended up to 2.9 Surgical Processor consulted LR changed to NSS Back to baseline Hypertension Still not controlled Likely from underlying acute pancreatitis, IV fluids Amlodipine 5 mg p.o. daily started-->increased to 10 mg p.o. daily Hydralazine 25 mg p.o. 3 times daily added Carvedilol 6.25 mg p.o. twice daily added Continue usual lisinopril and metoprolol As needed hydralazine IV Complicated UTI ruled out Urine culture: Negative Blood cultures negative prediabetes, remote hemoglobin A1c of 5.7 from January 2018 A1c 5.7 DVT prophylaxis per Heparin subcu Full code Disposition Pending Anticipate discharge to home when medically stable plan of care discussed with patient in detail and at length all questions answered he is understanding, agreeable, comfortable with the plan of care Admission and Anticipated Discharge Date Admission Date: April 24, 2022 Subjective Follow-up for acute pancreatitis, acute cholangitis acute renal failure, etc. Seen sitting up in bedside chair, not in distress, comfortable States he continues to feel improved Abdominal pain is very minimal now Tolerating clear liquid diet well Positive BMs No fevers or chills no chest pain, dyspnea, palpitations, dizziness No other symptoms Review of Systems Review of Systems: all noted and negative except for above Physical Exam Physical Exam: General- oriented x 3, not in distress, speaks in sentences with no effort or accessory muscle use Eyes- anicteric Neck- no JVD Lungs- clear breath sounds bilaterally, no crackles or wheezing Heart- normal rate, regular rhythm; no murmurs Abdomen- normal bowel sounds, nondistended, soft, nontender Extremities- no pretibial edema, no calf tenderness Neuro- alert, oriented x 3; no gross focal neurologic deficits Skin- warm & dry Results & Data Results & Data ([facility]) Vital Signs (Past 12 Hours) Vital Signs Temp Pulse Resp BP Pulse Ox O2 Del Method 04/29/22 15:20 36.7 C 108 H 18 168/72 H 96 Room Air 04/29/22 15:15 156/79 H 04/29/22 08:00 Room Air 04/29/22 11:34 36.5 C 104 H 20 175/77 H 94 Room Air 04/29/22 07:44 36.9 C 102 H 20 169/78 H 94 Room Air 04/29/22 05:47 100 H 180/84 H 04/29/22 04:30 36.8 C 99 H 18 180/85 H 94 Room Air all noted and reviewed including below (1) Acute pancreatitis Acute pancreatitis complication: unspecified Pancreatitis type: unspecified pancreatitis type Qualified Code(s): K85.90 - Acute pancreatitis without necrosis or infection, unspecified
[2022-04-29] MEDS: hydrALAZINE HCL 25 MG TAB PO SCH ×2 (16:35→20:04)
[2022-04-29] MEDS: carvediloL 6.25 MG TAB PO SCH (20:04)
[2022-04-29] MEDS: MELATONIN 3 MG TAB PO PRN (22:09)
[2022-04-30] MEDS: CEFEPIME 2,000 MG in SYRINGE 0 ML IV SCH ×2 (01:06→13:59)
[2022-04-30] MEDS: metroNIDAZOLE 500 MG/100 ML BAG IV SCH ×3 (05:49→23:04)
--- NOTE | 2022-04-30 07:08 | Surgery Progress Note ---
Date of Service April 30, 2022 Assessment & Plan (1) Acute pancreatitis: Plan: 04/30/22 CT scan from yesterday was reviewed which all indications point to a more aggressive pancreatitis likely developing hemorrhagic pancreatitis I discussed with the patient that this is a serious condition we will see how he does here but may need to be transferred to a tertiary center where interventional radiologist would be available in case fluid collection or an abscess develops in the pancreatic bed He understands the severity of the situation Will discuss with the medical service regarding my recommendations Lab this morning is pending All question answered 04/29/22 continues to make improvement his renal function is greatly improved chemically and clinically He tolerated a clear liquid diet With surgery and increase to full liquid diet today Addendum lab from this morning was reviewed the patient has increased leukocytosis left shift therefore we will order CT scan of the abdomen pelvis to follow-up on a pancreatitis to rule out the possibility of abscess formation 04/28/22 patient overall is improved with significant pancreatitis his GI tract appears to slowly recover function May be able to start him on clear liquids today sparingly continue with rehydration liver functions improved yesterday lab this morning some pending Given the significance of his pancreatitis unless pushed to do surgery earlier we would like to wait as long as possible before proceeding with any elective surgery to remove his gallbladder Pancreatitis is likely secondary to cholelithiasis and choledocholithiasis. -ERCP performed on 04/25/2022 Continue n.p.o. status Continue IV fluid for hydration due to pancreatitis Provide analgesics Provide antiemetics Continue antibiotics in the form of cefepime and Flagyl Continue to follow serial labs Nephrology is seeing secondary to acute kidney injury; continue to avoid nephrotoxins Plan will be for cholecystectomy once he is further recovered from his pancreatitis and his renal function has improved Admission and Anticipated Discharge Date Admission Date: April 24, 2022 Subjective Main difference from yesterday is his abdomen is more prominent he states he is actually started moving his bowels the liquid Back pain is unchanged Physical Exam Physical Exam: Alert coherent laying in bed still taken in the moderate mount of water p.o. The abdomen is more distended tympanitic nontender He remains tachycardic Results & Data ([facility]) Vital Signs (Past 12 Hours) Vital Signs Temp Pulse Pulse Resp BP Pulse Ox O2 Del Method 04/30/22 04:16 36.9 C 106 H 20 156/81 H 95 Room Air 04/29/22 23:26 36.8 C 106 H 22 139/70 95 Room Air 04/29/22 22:15 105 H 04/29/22 19:47 36.4 C L 111 H 24 161/72 H 95 Room Air PG Care Time/CCT Total # of Minutes Spent Total Time Spent with Patient: Total time spent is greater than 50% in coordination of care (as documented) at patient's floor/unit and/or counseling patient: Coding Level of Care Code 83034 Subseq Hosp Care Lvl 3 Diagnoses Acute pancreatitis K85.90 Acute pancreatitis complication: unspecified Pancreatitis type: unspecified pancreatitis type (1) Acute pancreatitis Acute pancreatitis complication: unspecified Pancreatitis type: unspecified pancreatitis type Qualified Code(s): K85.90 - Acute pancreatitis without necrosis or infection, unspecified
[2022-04-30] MEDS: POT PHOSPHATE MONOBASIC W/ SOD TAB PO SCH ×4 (08:11→20:15)
[2022-04-30] MEDS: carvediloL 6.25 MG TAB PO SCH ×2 (08:11→20:18)
[2022-04-30] MEDS: hydrALAZINE TAB 50 MG TAB PO SCH ×3 (08:11→20:16)
[2022-04-30] MEDS: lisinopril 40 MG TAB PO SCH (08:12)
[2022-04-30] MEDS: amLODIPine BESYLATE 5 MG TAB PO SCH (08:12)
[2022-04-30] MEDS: hydrALAZINE HCL 20 MG/ML VIAL IV PRN (08:16)
[2022-04-30 08:32] LABS: Hematocrit (blood only) 35.1 % (40.1-51.0); Hemoglobin 12.2 g/dl (14.0-18.0); Mean Corpuscular Hemoglobin 30.4 pg (25.0-34.0); Mean Corpuscular Hgb Conc 34.8 g/dL (32.0-36.0); Mean Corpuscular Volume 87.5 fL (80.0-100.0); Mean Platelet Volume 11.6 fL (9.4-12.4); Platelet Count 229 K/uL (130-400); RDW Coefficient of Variation 14.9 % (11.5-14.5); Red Blood Count 4.01 M/uL (4.63-6.08); White Blood Count 19.34 K/ul (4.8-10.8)
[2022-04-30 08:56] LABS: Basophils % (auto) 0.5 %; Eosinophils # (auto) 0.12 K/uL (0-0.50); Eosinophils % (auto) 0.6 %; Immature Granulocytes # (auto) 1.41 K/uL (0.00-0.02); Immature Granulocytes % (auto) 7.3 %; Lymphocytes # (auto) 0.76 K/uL (1.2-3.4); Lymphocytes % (auto) 3.9 %; Monocytes # (auto) 1.29 K/uL (0.24-0.82); Monocytes % (auto) 6.7 %; Neutrophils # (auto) 15.66 K/uL (1.4-6.5); Toxic Granulation 1+
[2022-04-30 09:19] LABS: BUN Creatinine Ratio 31.7 (10-20); Calcium 7.7 mg/dl (8.5-10.1); Creatinine Clr Calc Pharmacy 72.8 ml/min; Est GFR (African American) 75.2 ml/min; Est GFR (Non-African American) 64.9 ml/min; Potassium 3.4 mmol/L (3.5-5.1)
[2022-04-30] MEDS: LACTATED RINGER'S 1,000 ML IV SCH ×2 (13:59→23:40)
--- NOTE | 2022-04-30 14:42 | Hospitalist Progress Note ---
Date of Service April 30, 2022 Assessment & Plan (1) Acute pancreatitis: Plan: - 04/25 status post ERCP with pancreatic and bile duct stent placement - Clinically improving overall gradually - Abdominal pain gradually improved, very minimal now - Lipase trended down to 138 from 1999s - Remained afebrile - Blood cultures negative - Diet advanced to full liquids - only tolerating minimal intake - Continue cefepime plus Flagyl for total of 14 days of broad spectrum abx - worsening leukocytosis, repeat CT-AP with worsening pancreatitis and possible necrosis developing - no discrete fluid collection noted - restarted IVF - General surgery concerned for possible development of necrotic pseudocyst/pancreatitis - ongoing discussion and evaluation for possible transfer to [facility] if IR drainage felt to be needed - continue to closely monitor (2) Hypertension: Plan: - uncontrolled - continue amlodipine 10mg, Carvedilol 6.25mg BID, lisinopril 40mg daily - hydralazine increased from 25mg TID to 50mg TID - monitor for response - continue to adjust medications as needed (3) Prediabetes: Plan: - noted Plan DVT ppx: heparin SC Code Status: Full Code Dispo: telemetry Jason Maurer MD [facility] Medicine Admission and Anticipated Discharge Date Admission Date: April 24, 2022 Subjective Patient with HTN presented with abdominal pain, n/v. Had ERCP with sphincterotomy, stent placement for choledocholithiasis and cholangitis. Started on broad spectrum abx for 2 weeks. Surgery consulted for cholecystectomy. Pancreatitis persistent and possible formation of necrotizing pancreatitis. Repeat CT without discrete fluid collection but worsening pancreatitis. Possible discussion for transfer to [facility] facility. Patient feels a little better today. Still without much appetite. Still with some nausea, no vomiting since yesterday. Denies fevers or chills. ABdominal pain somewhat improved. Denies dysuria, chest pain, shortness of breath. Review of Systems Review of Systems: All systems reviewed & are unremarkable except as noted in Subjective Physical Exam Physical Exam: General- oriented x 3, not in distress, speaks in sentences with no effort or accessory muscle use Eyes- anicteric Neck- no JVD Lungs- clear breath sounds bilaterally, no crackles or wheezing Heart- normal rate, regular rhythm; no murmurs Abdomen- normal bowel sounds, nondistended, soft, mild tenderness epigastric region Extremities- no pretibial edema, no calf tenderness Neuro- alert, oriented x 3; no gross focal neurologic deficits Skin- warm & dry Results & Data Results & Data ([facility]) Vital Signs (Past 12 Hours) Vital Signs Temp Pulse Pulse Resp BP BP Pulse Ox 04/30/22 11:09 36.4 C L 107 H 20 148/81 H 95 04/30/22 09:00 144/81 H 04/30/22 06:07 106 H 04/30/22 07:05 36.2 C L 111 H 22 173/80 H 95 04/30/22 04:16 36.9 C 106 H 20 156/81 H 95 O2 Del Method 04/30/22 11:09 Room Air 04/30/22 09:00 04/30/22 06:07 04/30/22 07:05 Room Air 04/30/22 04:16 Room Air Diagnostic Findings Laboratory Results WBC 19.34 K/ul (4.8-10.8) H 04/30/22 08:16 RBC 4.01 M/uL (4.63-6.08) L 04/30/22 08:16 Hgb 12.2 g/dl (14.0-18.0) L 04/30/22 08:16 Hct 35.1 % (40.1-51.0) L 04/30/22 08:16 MCV 87.5 fL (80.0-100.0) 04/30/22 08:16 MCH 30.4 pg (25.0-34.0) 04/30/22 08:16 MCHC 34.8 g/dL (32.0-36.0) 04/30/22 08:16 RDW Std Deviation 48.0 fL (36.4-46.3) H 04/30/22 08:16 RDW Coeff of Fred 14.9 % (11.5-14.5) H 04/30/22 08:16 Plt Count 229 K/uL (130-400) 04/30/22 08:16 MPV 11.6 fL (9.4-12.4) 04/30/22 08:16 Immature Gran % (Auto) 7.3 % 04/30/22 08:16 Neut % (Auto) 81.0 % 04/30/22 08:16 Lymph % (Auto) 3.9 % 04/30/22 08:16 Cole % (Auto) 6.7 % 04/30/22 08:16 Eos % (Auto) 0.6 % 04/30/22 08:16 Baso % (Auto) 0.5 % 04/30/22 08:16 Neut # (Auto) 15.66 K/uL (1.4-6.5) H 04/30/22 08:16 Lymph # (Auto) 0.76 K/uL (1.2-3.4) L 04/30/22 08:16 Cole # (Auto) 1.29 K/uL (0.24-0.82) H 04/30/22 08:16 Eos # (Auto) 0.12 K/uL (0-0.50) 04/30/22 08:16 Baso # (Auto) 0.10 K/uL (0-0.2) 04/30/22 08:16 Immature Gran # (Auto) 1.41 K/uL (0.00-0.02) H 04/30/22 08:16 Toxic Granulation 1+ 04/30/22 08:16 Toxic Vacuolation 1+ 04/25/22 07:32 Platelet Estimate Normal (Normal) 04/27/22 07:49 Echinocytes 1+ 04/29/22 07:22 PT 10.9 Seconds (9.0-12.0) 04/24/22 21:42 INR 1.0 (0.9-1.1) 04/24/22 21:42 APTT 24.0 Seconds (21.0-31.0) 04/24/22 21:42 PTT Ratio 0.9 04/24/22 21:42 Sodium 137 mmol/L (136-145) 04/30/22 08:21 Potassium 3.4 mmol/L (3.5-5.1) L 04/30/22 08:21 Chloride 102 mmol/L (98-107) 04/30/22 08:21 Carbon Dioxide 26 mmol/L (21-32) 04/30/22 08:21 Anion Gap 9 (3-11) 04/30/22 08:21 BUN 38 mg/dl (6-23) H 04/30/22 08:21 Creatinine 1.20 mg/dl (0.6-1.4) 04/30/22 08:21 Est Cr Clr Drug Dosing 72.8 ml/min 04/30/22 08:21 Est GFR ( Amer) 75.2 ml/min 04/30/22 08:21 Est GFR (Non-Af Amer) 64.9 ml/min 04/30/22 08:21 BUN/Creatinine Ratio 31.7 (10-20) H 04/30/22 08:21 Glucose 231 mg/dl (70-99(Fasting)) H 04/30/22 08:21 Estimat Average Glucose 117 mg/dl 04/24/22 18:15 Hemoglobin A1c 5.7 % (4.5-5.6) H 04/24/22 18:15 Calcium 7.7 mg/dl (8.5-10.1) L 04/30/22 08:21 Phosphorus 2.2 mg/dl (2.5-4.9) L 04/28/22 06:10 Magnesium 2.4 mg/dl (1.7-2.4) 04/27/22 07:49 Total Bilirubin 1.0 mg/dl (0.2-1.0) 04/29/22 07:22 Direct Bilirubin 1.1 mg/dl (0-0.2) H 04/24/22 21:04 AST 20 U/L (13-39) 04/29/22 07:22 ALT 58 U/L (7-52) H 04/29/22 07:22 Alkaline Phosphatase 94 U/L (34-104) 04/29/22 07:22 Troponin I High Sens 11.5 pg/ml (0-20) 04/24/22 21:04 Total Protein 5.7 gm/dl (6.0-8.3) L 04/29/22 07:22 Albumin 2.9 gm/dl (3.4-5.0) L 04/29/22 07:22 Globulin 2.8 gm/dl (2.5-4.0) 04/29/22 07:22 Albumin/Globulin Ratio 1.0 (0.9-2) 04/29/22 07:22 Triglycerides 95 mg/dl (0-150) 04/24/22 21:04 Lipase 138 U/L (11-82) H 04/28/22 06:10 Urine Color [place] 04/24/22 18:15 Urine Appearance Cloudy (Clear) A 04/24/22 18:15 Urine pH 5.5 (4.5-7.5) 04/24/22 18:15 Ur Specific [place] 1.029 (1.000-1.030) 04/24/22 18:15 Urine Protein 1+ (Negative) H 04/24/22 18:15 Urine Glucose (UA) Trace (Negative) H 04/24/22 18:15 Urine Ketones 1+ (Negative) H 04/24/22 18:15 Urine Blood Negative (Negative) 04/24/22 18:15 Urine Nitrite Positive (Negative) A 04/24/22 18:15 Urine Bilirubin 3+ (Negative) H 04/24/22 18:15 Urine Urobilinogen Negative (Negative) 04/24/22 18:15 Ur Leukocyte Esterase 1+ (Negative) H 04/24/22 18:15 Urine WBC (Auto) 10-30 /hpf (0-5) H 04/24/22 18:15 Urine RBC (Auto) 0-4 /hpf (0-4) 04/24/22 18:15 U Hyaline Cast (Auto) >30 /lpf (0-5) H 04/24/22 18:15 U Epithel Cells (Auto) >30 /lpf (0-5) H 04/24/22 18:15 Urine Bacteria (Auto) 1+ (Negative) H 04/24/22 18:15 Calcium Oxalate Crystal Present (None Prsent) A 04/24/22 18:15 Amorphous Sediment Present (None Prsent) A 04/24/22 18:15 WBC Casts 10-20 /lpf (0) H 04/24/22 18:15 Urine Mucus Present (None Prsent) A 04/24/22 18:15 Stl C. diff Tox B Gene Negative Cdiff Gene (Neg) 04/30/22 03:15 SARS-CoV-2, RNA, NAAT NEGATIVE (NEGATIVE) 04/24/22 20:30 Impressions Cholangiopancreatography MRI 04/24/22 21:13 MR MRCP HISTORY: 62 years-old Male abd pain, abn lfts acutely elevated LFTs COMPARISON: CT abdomen and pelvis of same day TECHNIQUE: MRCP was obtained without the use of IV contrast utilizing institutional protocol. FINDINGS: Interstitial and peripancreatic edema with free fluid within the lesser sac tracking along the pericolic gutters and into the central mesentery. Trace left pleural effusion. The study is motion degraded. Mild nonspecific wall thickening of the distal esophagus. No bowel obstruction or bowel wall thickening. Aorta and IVC are unremarkable. No lymphadenopathy identified. There are a few T2 hyperintense foci noted within the left kidney measuring up to 1.2 cm suggestive of probable cysts. There is no hydronephrosis. Colonic diverticulosis. Tiny gallstones are noted within the gallbladder neck. There is no gallbladder wall thickening. The common bile duct is normal in caliber measuring 4 mm. No choledocholithiasis identified. No pancreatic ductal dilation identified. Filling defect noted within the superior mesenteric vein. Suboptimal visualization of the splenic vein. IMPRESSION: 1. Motion degraded exam. 2. Acute pancreatitis. No evidence of pancreatic ductal dilation or acute peripancreatic fluid collection. 3. 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 The splenic vein is not well visualized. 4. Cholelithiasis without evidence of acute cholecystitis, choledocholithiasis or biliary ductal dilation. ACT 112: Negative or not required by law. The above report was generated using voice recognition software. It may contain grammatical, syntax or spelling errors. Electronically signed by: Finn Lagos M.D. 04/25/2022 8:03 AM Chest X-Ray 04/25/22 23:03 SINGLE VIEW CHEST CLINICAL HISTORY: Dyspnea. FINDINGS: An AP, portable, upright chest radiograph is compared to study dated 04/24/2022. The cardiomediastinal silhouette is unremarkable. There are low lung volumes with bibasilar atelectasis. The lungs and pleural spaces are otherwise clear. No pneumothorax is seen. The bony thorax is grossly intact. IMPRESSION: Low lung volumes with no active disease in the chest. ACT 112: Negative or not required by law. Electronically signed by: Leroy Schuler M.D. 04/25/2022 11:17 PM Abdomen/Pelvis CT 04/29/22 12:[address] WITHOUT CONTRAST CT DOSE: 957.85 mGy.cm HISTORY: Epigastric pain. follow up pancreatitis TECHNIQUE: Multiaxial CT images of the abdomen and pelvis were performed without contrast. A dose lowering technique was utilized adhering to the principles of ALARA. COMPARISON STUDY: Abdomen and pelvis CT 04/24/2022. FINDINGS: Interval development of a small left pleural effusion. Bibasilar densities favor subsegmental atelectasis. No fractures within the visualized osseous structures. Interval placement of a main pancreatic duct stent and a common bile duct stent which appear in good position. There are 2 additional small metallic densities within the junction of the second/third portion of duodenum which are consistent with vascular clips. Trace pneumobilia consistent with patency of the common bile duct stent. No hepatic or splenic masses. Mild gallbladder wall thickening which may be related to the patient's diffuse edematous state. There is a small amount of ascites which is progressed in the interval. The adrenal glands are unremarkable. There are few punctate bilateral renal calculi. No ureteral calculi. No hydronephrosis. Progressive peripancreatic inflammatory change and edema consistent with the patient's history of acute pancreatitis. Areas of heterogeneity within the pancreas could be due to the interstitial edema or developing pancreatic necrosis. This is difficult to assess on this noncontrast study. No loculated peripancreatic fluid collections identified at this time. No retroperitoneal lymphadenopathy. The bladder is unremarkable. There is a small fat-containing right inguinal hernia. There is moderate body wall edema which has progressed. Colonic diverticulosis. No evidence for acute diverticulitis. Surgical clips at the cecal base are noted. The appendix is unremarkable. Mild thickening of the descending colon which may be reactive to the pancreatitis. A nonspecific colitis could also have a similar appearance. IMPRESSION: 1. Interval progression of the acute pancreatitis demonstrated by progressive peripancreatic fluid/inflammatory change. No loculated fluid collections identified at this time. 2. Heterogeneous enhancement within the pancreas which raises the possibility of developing pancreatic necrosis. This is difficult to assess on this noncontrast study. 3. The common bile duct stent and main pancreatic duct stent appear in good position. 3. Moderate body wall edema with a small left pleural effusion and a small amount of ascites. This has progressed in the interval. 5. Mild gallbladder wall thickening and mild thickening within the duodenum which is likely reactive to the acute pancreatitis. 6. There is mild thickening within the descending colon which could also be related to the adjacent pancreatitis or a nonspecific colitis. 7. Additional findings as described above ACT 112: Negative or not required by law. Electronically signed by: Juan Luis Sullivan M.D. 04/29/2022 1:51 PM Medications Administered Current Inpatient Medications Acetaminophen (Acetaminophen 500 Mg Tab) 500 mg PO Q6H PRN PRN Reason: pain/fever Stop: 11/19/22 21:16 Amlodipine Besylate (Amlodipine Besylate 5 Mg Tab) 10 mg PO QAM [facility] Stop: 05/28/22 06:19 Last Admin: 04/30/22 08:12 Dose: 10 mg Carvedilol (Carvedilol 6.25 Mg Tab) 6.25 mg PO BID [facility] Stop: 05/29/22 20:59 Last Admin: 04/30/22 08:11 Dose: 6.25 mg Hydralazine HCl (Hydralazine Hcl 20 Mg/Ml Vial) 5 mg IV Q4H PRN PRN Reason: systolic bp > 160 Stop: 05/25/22 16:43 Last Admin: 04/30/22 08:16 Dose: 5 mg Hydralazine HCl (Hydralazine Tab 50 Mg Tab) 50 mg PO TID [facility] Stop: 05/30/22 08:59 Last Admin: 04/30/22 14:03 Dose: 50 mg Hydromorphone HCl (Hydromorphone Inj 0.5 Mg/0.5 Ml Syr) 0.5 mg IV Q3H PRN PRN Reason: Pain Stop: 05/08/22 21:16 Last Admin: 04/28/22 22:09 Dose: 0.5 mg Promethazine HCl 12.5 mg/ (Sodium Chloride) 50.5 mls @ 202 mls/hr IV Q6H PRN PRN Reason: Nausea And Vomiting Stop: 05/24/22 21:16 Metronidazole (Flagyl) 500 mg in 100 mls @ 100 mls/hr IV Q8H [facility] Stop: 05/05/22 14:44 Last Infusion: 04/30/22 06:45 Dose: Infused Lorazepam 0.5 mg/ Syringe 0.5 mls @ 2 mls/min IV Q4H PRN PRN Reason: Anxiety Stop: 05/27/22 23:51 Cefepime HCl 2,000 mg/ Syringe 20 mls @ 5 mls/min IV Q12H [facility] Stop: 05/07/22 04:59 Last Admin: 04/30/22 13:59 Dose: 5 mls/min Lactated Ringer's (Lr) 1,000 mls @ 100 mls/hr IV .Q10H [facility] Stop: 05/01/22 09:14 Last Admin: 04/30/22 13:59 Dose: 100 mls/hr Lisinopril (Lisinopril 40 Mg Tab) 40 mg PO QAM [facility] Stop: 05/28/22 14:44 Last Admin: 04/30/22 08:12 Dose: 40 mg Loperamide HCl (Loperamide Hcl 2 Mg Cap) 2 mg PO Q6 PRN PRN Reason: diarrhea Stop: 05/30/22 13:09 Melatonin (Melatonin 3 Mg Tab) 3 mg PO HS PRN PRN Reason: Sleep Stop: 05/28/22 21:31 Last Admin: 04/29/22 22:09 Dose: 3 mg Oxycodone HCl (Oxycodone Hcl Ir 5 Mg Tab (Immediate Release)) 5 mg PO Q4H PRN PRN Reason: Pain Stop: 05/08/22 21:18 Last Admin: 04/29/22 04:35 Dose: 5 mg Potassium Phosphate (Pot Phosphate Monobasic W/ Sod Tab) 1 tab PO QID [facility] Stop: 05/28/22 08:59 Last Admin: 04/30/22 13:58 Dose: 1 tab (1) Acute pancreatitis Acute pancreatitis complication: unspecified Pancreatitis type: unspecified pancreatitis type Qualified Code(s): K85.90 - Acute pancreatitis without nec rosis or infection, unspecified
[2022-04-30] MEDS: LOPERAMIDE HCL 2 MG CAP PO PRN (17:23)
[2022-04-30 18:58] LABS: Magnesium 2.2 mg/dl (1.7-2.4); Phosphorus 2.6 mg/dl (2.5-4.9)
[2022-04-30] MEDS: HEPARIN SOD 5,000 UNIT/0.5 ML VIAL SQ SCH (20:18)
[2022-05-01] MEDS: CEFEPIME 2,000 MG in SYRINGE 0 ML IV SCH ×2 (01:47→13:56)
[2022-05-01] MEDS: HEPARIN SOD 5,000 UNIT/0.5 ML VIAL SQ SCH ×3 (05:41→22:19)
[2022-05-01] MEDS: metroNIDAZOLE 500 MG/100 ML BAG IV SCH ×3 (05:42→22:18)
[2022-05-01 06:58] LABS: Hemoglobin 11.6 g/dl (14.0-18.0); Mean Corpuscular Hemoglobin 30.5 pg (25.0-34.0); Mean Corpuscular Hgb Conc 35.2 g/dL (32.0-36.0); Mean Corpuscular Volume 86.8 fL (80.0-100.0); Mean Platelet Volume 11.7 fL (9.4-12.4); Platelet Count 239 K/uL (130-400); RDW Coefficient of Variation 14.4 % (11.5-14.5); RDW Standard Deviation 45.6 fL (36.4-46.3); White Blood Count 21.76 K/ul (4.8-10.8)
[2022-05-01 07:25] LABS: Basophils # (auto) 0.08 K/uL (0-0.2); Basophils % (auto) 0.4 %; Eosinophils # (auto) 0.12 K/uL (0-0.50); Eosinophils % (auto) 0.6 %; Immature Granulocytes # (auto) 1.16 K/uL (0.00-0.02); Immature Granulocytes % (auto) 5.3 %; Lymphocytes # (auto) 0.65 K/uL (1.2-3.4); Monocytes # (auto) 1.04 K/uL (0.24-0.82); Monocytes % (auto) 4.8 %; Neutrophils # (auto) 18.71 K/uL (1.4-6.5); Neutrophils % (auto) 85.9 %
[2022-05-01 07:38] LABS: Calcium 7.4 mg/dl (8.5-10.1); Creatinine Clr Calc Pharmacy 87.3 ml/min; Est GFR (African American) 93.7 ml/min; Est GFR (Non-African American) 80.9 ml/min; Potassium 3.1 mmol/L (3.5-5.1)
[2022-05-01 07:40] LABS: Albumin Level 2.8 gm/dl (3.4-5.0); BUN Creatinine Ratio 37.8 (10-20); Bilirubin,Total 0.8 mg/dl (0.2-1.0); Calcium 7.3 mg/dl (8.5-10.1); Creatinine Clr Calc Pharmacy 89.1 ml/min; Est GFR (African American) 96.1 ml/min; Est GFR (Non-African American) 82.9 ml/min; Globulin 2.8 gm/dl (2.5-4.0); Magnesium 2.1 mg/dl (1.7-2.4); Phosphorus 2.5 mg/dl (2.5-4.9); Potassium 3.1 mmol/L (3.5-5.1); Total Protein 5.6 gm/dl (6.0-8.3)
[2022-05-01] MEDS ORDERED: POTASSIUM CHLORIDE CRTAB 20 MEQ TABCR PO STA (08:00)
[2022-05-01] MEDS: POTASSIUM CHLORIDE / WTR 10 MEQ/100 ML PLCT IV SCH ×2 (08:44→09:41)
[2022-05-01] MEDS: amLODIPine BESYLATE 5 MG TAB PO SCH (08:57)
[2022-05-01] MEDS: carvediloL 6.25 MG TAB PO SCH ×2 (08:59→20:10)
[2022-05-01] MEDS: hydrALAZINE TAB 50 MG TAB PO SCH ×3 (08:59→20:09)
[2022-05-01] MEDS: lisinopril 40 MG TAB PO SCH (08:59)
[2022-05-01] MEDS: POT PHOSPHATE MONOBASIC W/ SOD TAB PO SCH ×4 (08:59→20:10)
--- NOTE | 2022-05-01 11:37 | Hospitalist Progress Note ---
Date of Service May 01, 2022 Assessment & Plan (1) Acute pancreatitis: Plan: - 04/25 status post ERCP with pancreatic and bile duct stent placement - Clinically improving overall gradually - Abdominal pain gradually improved, very minimal now - Lipase trended down to 138 from 1999s - Remained afebrile - Blood cultures negative - Diet advanced to full liquids - only tolerating minimal intake - Continue cefepime plus Flagyl for total of 14 days of broad spectrum abx - worsening leukocytosis, repeat CT-AP with worsening pancreatitis and possible necrosis developing - no discrete fluid collection noted - continue IVF - General surgery concerned for possible development of necrotic pseudocyst/pancreatitis - ongoing discussion and evaluation for possible transfer to tertiary care facility if IR drainage felt to be needed - continue to closely monitor - improving slowly clinically (2) Hypertension: Plan: - uncontrolled - continue amlodipine 10mg, Carvedilol 6.25mg BID, lisinopril 40mg daily - continue hydralazine 50mg TID - monitor for response - continue to adjust medications as needed (3) Prediabetes: Plan: - noted Plan DVT ppx: heparin SC Code Status: Full Code Dispo: telemetry Jason Maurer MD [facility] Medicine Admission and Anticipated Discharge Date Admission Date: April 24, 2022 Subjective Patient with HTN presented with abdominal pain, n/v. Had ERCP with sphincterotomy, stent placement for choledocholithiasis and cholangitis. Started on broad spectrum abx for 2 weeks. Surgery consulted for cholecystectomy. Pancreatitis persistent and possible formation of necrotizing pancreatitis. Repeat CT without discrete fluid collection but worsening pancreatitis. Possible discussion for transfer to tertiary care facility. Patient feels a little better today. Still without much appetite but eating more than prior days. Denies fevers or chills. Abdominal pain continues to improve. Denies dysuria, chest pain, shortness of breath. Review of Systems Review of Systems: all noted and negative except for above Physical Exam Physical Exam: General- oriented x 3, not in distress, speaks in sentences with no effort or accessory muscle use Eyes- anicteric Neck- no JVD Lungs- clear breath sounds bilaterally, no crackles or wheezing Heart- normal rate, regular rhythm; no murmurs Abdomen- normal bowel sounds, nondistended, soft, mild tenderness epigastric region Extremities- no pretibial edema, no calf tenderness Neuro- alert, oriented x 3; no gross focal neurologic deficits Skin- warm & dry Results & Data Results & Data ([facility]) Vital Signs (Past 12 Hours) Vital Signs Temp Pulse Pulse Resp BP Pulse Ox O2 Del Method 05/01/22 07:47 109 H 05/01/22 07:30 36.3 C L 108 H 18 163/76 H 96 Room Air 05/01/22 02:46 36.7 C 101 H 20 144/75 H 94 Room Air Diagnostic Findings Laboratory Results WBC 21.76 K/ul (4.8-10.8) H 05/01/22 06:30 RBC 3.80 M/uL (4.63-6.08) L 05/01/22 06:30 Hgb 11.6 g/dl (14.0-18.0) L 05/01/22 06:30 Hct 33.0 % (40.1-51.0) L 05/01/22 06:30 MCV 86.8 fL (80.0-100.0) 05/01/22 06:30 MCH 30.5 pg (25.0-34.0) 05/01/22 06:30 MCHC 35.2 g/dL (32.0-36.0) 05/01/22 06:30 RDW Std Deviation 45.6 fL (36.4-46.3) 05/01/22 06:30 RDW Coeff of Fred 14.4 % (11.5-14.5) 05/01/22 06:30 Plt Count 239 K/uL (130-400) 05/01/22 06:30 MPV 11.7 fL (9.4-12.4) 05/01/22 06:30 Immature Gran % (Auto) 5.3 % 05/01/22 06:30 Neut % (Auto) 85.9 % 05/01/22 06:30 Lymph % (Auto) 3.0 % 05/01/22 06:30 [place] % (Auto) 4.8 % 05/01/22 06:30 Eos % (Auto) 0.6 % 05/01/22 06:30 Baso % (Auto) 0.4 % 05/01/22 06:30 Neut # (Auto) 18.71 K/uL (1.4-6.5) H 05/01/22 06:30 Lymph # (Auto) 0.65 K/uL (1.2-3.4) L 05/01/22 06:30 [place] # (Auto) 1.04 K/uL (0.24-0.82) H 05/01/22 06:30 Eos # (Auto) 0.12 K/uL (0-0.50) 05/01/22 06:30 Baso # (Auto) 0.08 K/uL (0-0.2) 05/01/22 06:30 Immature Gran # (Auto) 1.16 K/uL (0.00-0.02) H 05/01/22 06:30 Toxic Granulation 1+ 04/30/22 08:16 Toxic Vacuolation 1+ 04/25/22 07:32 Platelet Estimate Normal (Normal) 04/27/22 07:49 Echinocytes 1+ 04/29/22 07:22 PT 10.9 Seconds (9.0-12.0) 04/24/22 21:42 INR 1.0 (0.9-1.1) 04/24/22 21:42 APTT 24.0 Seconds (21.0-31.0) 04/24/22 21:42 PTT Ratio 0.9 04/24/22 21:42 Sodium 135 mmol/L (136-145) L 05/01/22 06:30 Sodium 136 mmol/L (136-145) 05/01/22 06:30 Potassium 3.1 mmol/L (3.5-5.1) L 05/01/22 06:30 Potassium 3.1 mmol/L (3.5-5.1) L 05/01/22 06:30 Chloride 103 mmol/L (98-107) 05/01/22 06:30 Chloride 103 mmol/L (98-107) 05/01/22 06:30 Carbon Dioxide 24 mmol/L (21-32) 05/01/22 06:30 Carbon Dioxide 24 mmol/L (21-32) 05/01/22 06:30 Anion Gap 8 (3-11) 05/01/22 06:30 Anion Gap 9 (3-11) 05/01/22 06:30 BUN 37 mg/dl (6-23) H 05/01/22 06:30 BUN 37 mg/dl (6-23) H 05/01/22 06:30 Creatinine 0.98 mg/dl (0.6-1.4) 05/01/22 06:30 Creatinine 1.00 mg/dl (0.6-1.4) 05/01/22 06:30 Est Cr Clr Drug Dosing 87.3 ml/min 05/01/22 06:30 Est Cr Clr Drug Dosing 89.1 ml/min 05/01/22 06:30 Est GFR ( Amer) 93.7 ml/min 05/01/22 06:30 Est GFR ( Amer) 96.1 ml/min 05/01/22 06:30 Est GFR (Non-Af Amer) 80.9 ml/min 05/01/22 06:30 Est GFR (Non-Af Amer) 82.9 ml/min 05/01/22 06:30 BUN/Creatinine Ratio 37.0 (10-20) H 05/01/22 06:30 BUN/Creatinine Ratio 37.8 (10-20) H 05/01/22 06:30 Glucose 195 mg/dl (70-99(Fasting)) H 05/01/22 06:30 Glucose 196 mg/dl (70-99(Fasting)) H 05/01/22 06:30 Estimat Average Glucose 117 mg/dl 04/24/22 18:15 Hemoglobin A1c 5.7 % (4.5-5.6) H 04/24/22 18:15 Calcium 7.3 mg/dl (8.5-10.1) L 05/01/22 06:30 Calcium 7.4 mg/dl (8.5-10.1) L 05/01/22 06:30 Phosphorus 2.5 mg/dl (2.5-4.9) 05/01/22 06:30 Magnesium 2.1 mg/dl (1.7-2.4) 05/01/22 06:30 Total Bilirubin 0.8 mg/dl (0.2-1.0) 05/01/22 06:30 Direct Bilirubin 1.1 mg/dl (0-0.2) H 04/24/22 21:04 AST 17 U/L (13-39) 05/01/22 06:30 ALT 29 U/L (7-52) 05/01/22 06:30 Alkaline Phosphatase 101 U/L (34-104) 05/01/22 06:30 Troponin I High Sens 11.5 pg/ml (0-20) 04/24/22 21:04 Total Protein 5.6 gm/dl (6.0-8.3) L 05/01/22 06:30 Albumin 2.8 gm/dl (3.4-5.0) L 05/01/22 06:30 Globulin 2.8 gm/dl (2.5-4.0) 05/01/22 06:30 Albumin/Globulin Ratio 1.0 (0.9-2) 05/01/22 06:30 Triglycerides 95 mg/dl (0-150) 04/24/22 21:04 Lipase 138 U/L (11-82) H 04/28/22 06:10 Urine Color [place] 04/24/22 18:15 Urine Appearance Cloudy (Clear) A 04/24/22 18:15 Urine pH 5.5 (4.5-7.5) 04/24/22 18:15 Ur Specific [place] 1.029 (1.000-1.030) 04/24/22 18:15 Urine Protein 1+ (Negative) H 04/24/22 18:15 Urine Glucose (UA) Trace (Negative) H 04/24/22 18:15 Urine Ketones 1+ (Negative) H 04/24/22 18:15 Urine Blood Negative (Negative) 04/24/22 18:15 Urine Nitrite Positive (Negative) A 04/24/22 18:15 Urine Bilirubin 3+ (Negative) H 04/24/22 18:15 Urine Urobilinogen Negative (Negative) 04/24/22 18:15 Ur Leukocyte Esterase 1+ (Negative) H 04/24/22 18:15 Urine WBC (Auto) 10-30 /hpf (0-5) H 04/24/22 18:15 Urine RBC (Auto) 0-4 /hpf (0-4) 04/24/22 18:15 U Hyaline Cast (Auto) >30 /lpf (0-5) H 04/24/22 18:15 U Epithel Cells (Auto) >30 /lpf (0-5) H 04/24/22 18:15 Urine Bacteria (Auto) 1+ (Negative) H 04/24/22 18:15 Calcium Oxalate Crystal Present (None Prsent) A 04/24/22 18:15 Amorphous Sediment Present (None Prsent) A 04/24/22 18:15 WBC Casts 04-24 /lpf (0) H 04/24/22 18:15 Urine Mucus Present (None Prsent) A 04/24/22 18:15 Stl C. diff Tox B Gene Negative Cdiff Gene (Neg) 04/30/22 03:15 SARS-CoV-2, RNA, NAAT NEGATIVE (NEGATIVE) 04/24/22 20:30 Impressions Cholangiopancreatography MRI 04/24/22 21:13 MR MRCP HISTORY: 62 years-old Male abd pain, abn lfts acutely elevated LFTs COMPARISON: CT abdomen and pelvis of same day TECHNIQUE: MRCP was obtained without the use of IV contrast utilizing institutional protocol. FINDINGS: Interstitial and peripancreatic edema with free fluid within the lesser sac tracking along the pericolic gutters and into the central mesentery. Trace left pleural effusion. The study is motion degraded. Mild nonspecific wall thickening of the distal esophagus. No bowel obstruction or bowel wall thickening. Aorta and IVC are unremarkable. No lymphadenopathy identified. There are a few T2 hyperintense foci noted within the left kidney measuring up to 1.2 cm suggestive of probable cysts. There is no hydronephrosis. Colonic diverticulosis. Tiny gallstones are noted within the gallbladder neck. There is no gallbladder wall thickening. The common bile duct is normal in caliber measuring 4 mm. No choledocholithiasis identified. No pancreatic ductal dilation identified. Filling defect noted within the superior mesenteric vein. Suboptimal visualization of the splenic vein. IMPRESSION: 1. Motion degraded exam. 2. Acute pancreatitis. No evidence of pancreatic ductal dilation or acute peripancreatic fluid collection. 3. 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 The splenic vein is not well visualized. 4. Cholelithiasis without evidence of acute cholecystitis, choledocholithiasis or biliary ductal dilation. ACT 112: Negative or not required by law. The above report was generated using voice recognition software. It may contain grammatical, syntax or spelling errors. Electronically signed by: Finn Lagos M.D. 04/25/2022 8:03 AM Chest X-Ray 04/25/22 23:03 SINGLE VIEW CHEST CLINICAL HISTORY: Dyspnea. FINDINGS: An AP, portable, upright chest radiograph is compared to study dated 04/24/2022. The cardiomediastinal silhouette is unremarkable. There are low lung volumes with bibasilar atelectasis. The lungs and pleural spaces are otherwise clear. No pneumothorax is seen. The bony thorax is grossly intact. IMPRESSION: Low lung volumes with no active disease in the chest. ACT 112: Negative or not required by law. Electronically signed by: Leroy Schuler M.D. 04/25/2022 11:17 PM Abdomen/Pelvis CT 04/29/22 12:[address] WITHOUT CONTRAST CT DOSE: 957.85 mGy.cm HISTORY: Epigastric pain. follow up pancreatitis TECHNIQUE: Multiaxial CT images of the abdomen and pelvis were performed without contrast. A dose lowering technique was utilized adhering to the principles of ALARA. COMPARISON STUDY: Abdomen and pelvis CT 04/24/2022. FINDINGS: Interval development of a small left pleural effusion. Bibasilar densities favor subsegmental atelectasis. No fractures within the visualized osseous structures. Interval placement of a main pancreatic duct stent and a common bile duct stent which appear in good position. There are 2 additional small metallic densities within the junction of the second/third portion of duodenum which are consistent with vascular clips. Trace pneumobilia consistent with patency of the common bile duct stent. No hepatic or splenic masses. Mild gallbladder wall thickening which may be related to the patient's diffuse edematous state. There is a small amount of ascites which is progressed in the interval. The adrenal glands are unremarkable. There are few punctate bilateral renal calculi. No ureteral calculi. No hydronephrosis. Progressive peripancreatic inflammatory change and edema consistent with the patient's history of acute pancreatitis. Areas of heterogeneity within the pancreas could be due to the interstitial edema or developing pancreatic necrosis. This is difficult to assess on this noncontrast study. No loculated peripancreatic fluid collections identified at this time. No retroperitoneal lymphadenopathy. The bladder is unremarkable. There is a small fat-containing right inguinal hernia. There is moderate body wall edema which has progressed. Colonic diverticulosis. No evidence for acute diverticulitis. Surgical clips at the cecal base are noted. The appendix is unremarkable. Mild thickening of the descending colon which may be reactive to the pancreatitis. A nonspecific colitis could also have a similar appearance. IMPRESSION: 1. Interval progression of the acute pancreatitis demonstrated by progressive peripancreatic fluid/inflammatory change. No loculated fluid collections identified at this time. 2. Heterogeneous enhancement within the pancreas which raises the possibility of developing pancreatic necrosis. This is difficult to assess on this noncontrast study. 3. The common bile duct stent and main pancreatic duct stent appear in good position. 3. Moderate body wall edema with a small left pleural effusion and a small amount of ascites. This has progressed in the interval. 5. Mild gallbladder wall thickening and mild thickening within the duodenum which is likely reactive to the acute pancreatitis. 6. There is mild thickening within the descending colon which could also be related to the adjacent pancreatitis or a nonspecific colitis. 7. Additional findings as described above ACT 112: Negative or not required by law. Electronically signed by: Juan Luis Sullivan M.D. 04/29/2022 1:51 PM Medications Administered Current Inpatient Medications Acetaminophen (Acetaminophen 500 Mg Tab) 500 mg PO Q6H PRN PRN Reason: pain/fever Stop: 05/24/22 21:16 Amlodipine Besylate (Amlodipine Besylate 5 Mg Tab) 10 mg PO QAM [facility] Stop: 05/28/22 06:19 Last Admin: 05/01/22 08:57 Dose: 10 mg Carvedilol (Carvedilol 6.25 Mg Tab) 6.25 mg PO BID [facility]ERY Stop: 05/29/22 20:59 Last Admin: 05/01/22 08:59 Dose: 6.25 mg Heparin Sodium (Porcine) (Heparin Sod 5,000 Unit/0.5 Ml Vial) 5,000 units SQ Q8 [facility]ERY Stop: 05/30/22 21:59 Last Admin: 05/01/22 05:41 Dose: 5,000 units Hydralazine HCl (Hydralazine Hcl 20 Mg/Ml Vial) 5 mg IV Q4H PRN PRN Reason: systolic bp > 160 Stop: 05/25/22 16:43 Last Admin: 04/30/22 08:16 Dose: 5 mg Hydralazine HCl (Hydralazine Tab 50 Mg Tab) 50 mg PO TID AVERY Stop: 05/30/22 08:59 Last Admin: 05/01/22 08:59 Dose: 50 mg Hydromorphone HCl (Hydromorphone Inj 0.5 Mg/0.5 Ml Syr) 0.5 mg IV Q3H PRN PRN Reason: Pain Stop: 05/08/22 21:16 Last Admin: 10/24/22 22:09 Dose: 0.5 mg Promethazine HCl 12.5 mg/ (Sodium Chloride) 50.5 mls @ 202 mls/hr IV Q6H PRN PRN Reason: Nausea And Vomiting Stop: 05/24/22 21:16 Metronidazole (Flagyl) 500 mg in 100 mls @ 100 mls/hr IV Q8H [facility] Stop: 05/05/22 14:44 Last Infusion: 05/01/22 07:18 Dose: Infused Lorazepam 0.5 mg/ Syringe 0.5 mls @ 2 mls/min IV Q4H PRN PRN Reason: Anxiety Stop: 05/27/22 23:51 Cefepime HCl 2,000 mg/ Syringe 20 mls @ 5 mls/min IV Q12H [facility] Stop: 05/07/22 04:59 Last Admin: 05/01/22 01:47 Dose: 5 mls/min Lisinopril (Lisinopril 40 Mg Tab) 40 mg PO QAM [facility] Stop: 05/28/22 14:44 Last Admin: 05/01/22 08:59 Dose: 40 mg Loperamide HCl (Loperamide Hcl 2 Mg Cap) 2 mg PO Q6 PRN PRN Reason: diarrhea Stop: 05/30/22 13:09 Last Admin: 04/30/22 17:23 Dose: 2 mg Melatonin (Melatonin 3 Mg Tab) 3 mg PO HS PRN PRN Reason: Sleep Stop: 05/28/22 21:31 Last Admin: 04/29/22 22:09 Dose: 3 mg Oxycodone HCl (Oxycodone Hcl Ir 5 Mg Tab (Immediate Release)) 5 mg PO Q4H PRN PRN Reason: Pain Stop: 05/08/22 21:18 Last Admin: 04/29/22 04:35 Dose: 5 mg Potassium Phosphate (Pot Phosphate Monobasic W/ Sod Tab) 1 tab PO QID [facility] Stop: 05/28/22 08:59 Last Admin: 05/01/22 08:59 Dose: 1 tab (1) Acute pancreatitis Acute pancreatitis complication: unspecified Pancreatitis type: unspecified pancreatitis type Qualified Code(s): K85.90 - Acute pancreatitis without necrosis or infection, unspecified
--- NOTE | 2022-05-01 12:27 | Surgery Progress Note ---
Date of Service May 01, 2022 Assessment & Plan (1) Acute pancreatitis: Plan: 05/01/22 I continued to discussed with the patient the present situation and potential deterioration that may require transfer to a tertiary center At this time his white count is increasing clinically seems to be improving but slowly Is virtually had nothing p.o. of any significance He would probably benefit to start hyperalimentation either peripherally or centrally Low threshold to repeat another CAT scan of the abdomen to follow-up on this significant pancreatitis Will discuss with the primary service 04/30/22 CT scan from yesterday was reviewed which all indications point to a more aggressive pancreatitis likely developing hemorrhagic pancreatitis I discussed with the patient that this is a serious condition we will see how he does here but may need to be transferred to a tertiary center where interventional radiologist would be available in case fluid collection or an abscess develops in the pancreatic bed He understands the severity of the situation Will discuss with the medical service regarding my recommendations Lab this morning is pending All question answered 04/29/22 continues to make improvement his renal function is greatly improved chemically and clinically He tolerated a clear liquid diet With surgery and increase to full liquid diet today Addendum lab from this morning was reviewed the patient has increased leukocytosis left shift therefore we will order CT scan of the abdomen pelvis to follow-up on a pancreatitis to rule out the possibility of abscess formation 04/28/22 patient overall is improved with significant pancreatitis his GI tract appears to slowly recover function May be able to start him on clear liquids today sparingly continue with rehydration liver functions improved yesterday lab this morning some pending Given the significance of his pancreatitis unless pushed to do surgery earlier we would like to wait as long as possible before proceeding with any elective surgery to remove his gallbladder Pancreatitis is likely secondary to cholelithiasis and choledocholithiasis. -ERCP performed on 04/25/2022 Continue n.p.o. status Continue IV fluid for hydration due to pancreatitis Provide analgesics Provide antiemetics Continue antibiotics in the form of cefepime and Flagyl Continue to follow serial labs Nephrology is seeing secondary to acute kidney injury; continue to avoid nephrotoxins Plan will be for cholecystectomy once he is further recovered from his pancreatitis and his renal function has improved Admission and Anticipated Discharge Date Admission Date: April 24, 2022 Subjective Saw the patient approximately 515 this morning when he was awake without any major complaints stating that he felt a little bit better than yesterday he is moving his bowels flatus and some liquid stool Still has some back pain but it seems to be subsiding Still quite thirsty drinking significant mount of water Physical Exam Physical Exam: Alert coherent without any discomfort laying flat Oral mucosa moist The abdomen is softer than yesterday but still distended there is no localized tenderness Results & Data ([facility]) Vital Signs (Past 12 Hours) Vital Signs Temp Pulse Pulse Resp BP Pulse Ox O2 Del Method 05/01/22 11:54 36.8 C 100 H 20 156/75 H 94 Room Air 05/01/22 07:47 109 H 05/01/22 07:30 36.3 C L 108 H 18 163/76 H 96 Room Air 05/01/22 02:46 36.7 C 101 H 20 144/75 H 94 Room Air Laboratory Results Noted continued elevation in white count with left shift PG Care Time/CCT Total # of Minutes Spent Total Time Spent with Patient: Total time spent is greater than 50% in coordination of care (as documented) at patient's floor/unit and/or counseling patient: Coding Level of Care Code 06942 Subseq Hosp Care Lvl 3 Diagnoses Acute pancreatitis K85.90 Acute pancreatitis complication: unspecified Pancreatitis type: unspecified pancreatitis type (1) Acute pancreatitis Acute pancreatitis complication: unspecified Pancreatitis type: unspecified pancreatitis type Qualified Code(s): K85.90 - Acute pancreatitis without necrosis or infection, unspecified
[2022-05-01] MEDS ORDERED: LACTATED RINGER'S 1,000 ML IV SCH (13:15)
[2022-05-01] MEDS: LOPERAMIDE HCL 2 MG CAP PO PRN (13:56)
--- NOTE | 2022-05-01 14:09 | XRay Report ---
SINGLE VIEW CHEST CLINICAL HISTORY: Dyspnea. IV placement. FINDINGS: 2 AP, portable, upright chest radiographs compared to study dated 04/25/2022 and correlated with chest CT dated 09/04/2020. The examination is degraded by portable technique and apical lordotic positioning. No catheter is identified. The cardiomediastinal heart is top normal for projection. The re is bibasilar scarring/atelectasis. The lungs and pleural spaces are otherwise clear. No pneumothor ax is seen. The bony thorax is grossly intact. IMPRESSION: No acute cardiopulmonary abnormality. ACT 112: Negative or not required by law. Electronically signed by: Leroy Schuler M.D. 05/01/2022 2:08 PM
[2022-05-02] MEDS: CEFEPIME 2,000 MG in SYRINGE 0 ML IV SCH ×2 (02:02→13:50)
[2022-05-02] MEDS: metroNIDAZOLE 500 MG/100 ML BAG IV SCH ×3 (05:22→22:16)
[2022-05-02] MEDS: HEPARIN SOD 5,000 UNIT/0.5 ML VIAL SQ SCH ×3 (05:23→21:20)
[2022-05-02 06:40] LABS: Hematocrit (blood only) 31.5 % (40.1-51.0); Hemoglobin 10.8 g/dl (14.0-18.0); Mean Corpuscular Hemoglobin 30.2 pg (25.0-34.0); Mean Corpuscular Hgb Conc 34.3 g/dL (32.0-36.0); Mean Platelet Volume 11.6 fL (9.4-12.4); Platelet Count 274 K/uL (130-400); RDW Coefficient of Variation 14.8 % (11.5-14.5); RDW Standard Deviation 47.9 fL (36.4-46.3); Red Blood Count 3.58 M/uL (4.63-6.08); White Blood Count 24.38 K/ul (4.8-10.8)
[2022-05-02 07:06] LABS: Calcium 7.3 mg/dl (8.5-10.1); Creatinine Clr Calc Pharmacy 84.8 ml/min; Est GFR (African American) 90.4 ml/min; Magnesium 2.1 mg/dl (1.7-2.4); Phosphorus 2.6 mg/dl (2.5-4.9); Potassium 3.4 mmol/L (3.5-5.1)
[2022-05-02] MEDS ORDERED: POTASSIUM CHLORIDE CRTAB 20 MEQ TABCR PO SCH (07:15)
[2022-05-02] MEDS ORDERED: POTASSIUM CHLORIDE CRTAB 20 MEQ TABCR PO STA (07:15)
[2022-05-02 07:21] LABS: Basophils # (auto) 0.08 K/uL (0-0.2); Basophils % (auto) 0.3 %; Eosinophils # (auto) 0.18 K/uL (0-0.50); Eosinophils % (auto) 0.7 %; Hypochromasia Present; Immature Granulocytes # (auto) 1.02 K/uL (0.00-0.02); Immature Granulocytes % (auto) 4.2 %; Lymphocytes # (auto) 0.65 K/uL (1.2-3.4); Lymphocytes % (auto) 2.7 %; Monocytes # (auto) 1.07 K/uL (0.24-0.82); Monocytes % (auto) 4.4 %; Neutrophils # (auto) 21.38 K/uL (1.4-6.5); Neutrophils % (auto) 87.7 %; Toxic Granulation 2+
[2022-05-02] MEDS ORDERED: OPTIRAY 350 100ml IV ONE (09:00)
--- NOTE | 2022-05-02 11:02 | Surgery Progress Note ---
Date of Service May 02, 2022 Assessment & Plan (1) Acute pancreatitis: Plan: -patient with increasing WBC to 24. remains with tachycardia. febrile yesterday, not this AM -not making much progress and blood work worsening, obtained CT a/p for further evaluation -read is still pending, but discussed with radiology department who stated the pancreatitis is worsened from images performed 3 days ago, appears necrotizing in nature. no abscess noted at this time -based on patient's clinical status we would recommend pt be transferred to a tertiary center with IR and surgical capabilities to handle patient's with complications related to necrotizing pancreatitis. pt is agreeable with the plan, he wishes to [facility]. hospitalists informed and attempting to make arrangements for this -pt was seen/examined with dr. calloway Admission and Anticipated Discharge Date Admission Date: April 24, 2022 Subjective Patient doing okay. Still with tachycardia. No major complaints Physical Exam Physical Exam: awake/alert, no distress Gastrointestinal (Abdomen): Inspection/Auscultation: + abdomen distended Percussion/Palpation: abdomen soft Results & Data ([facility]) Vital Signs (Past 12 Hours) Vital Signs Temp Pulse Pulse Resp BP Pulse Ox O2 Del Method 05/02/22 08:00 104 H 05/02/22 07:09 36.9 C 103 H 18 167/78 H 98 Room Air 05/01/22 23:54 94 H 05/01/22 22:59 36.7 C 94 H 18 148/74 H 91 Room Air PG Care Time/CCT Total # of Minutes Spent Total Time Spent with Patient: Total time spent is greater than 50% in coordination of care (as documented) at patient's floor/unit and/or counseling patient: Coding Level of Care Code 06005 Subseq Hosp Care Lvl 1 Diagnoses Acute pancreatitis K85.90 Acute pancreatitis complication: unspecified Pancreatitis type: unspecified pancreatitis type (1) Acute pancreatitis Acute pancreatitis complication: unspecified Pancreatitis type: unspecified pancreatitis type Qualified Code(s): K85.90 - Acute pancreatitis without necrosis or infection, unspecified
--- NOTE | 2022-05-02 11:04 | Hospitalist Progress Note ---
Date of Service May 02, 2022 Assessment & Plan (1) Acute pancreatitis: Plan: - 04/25 status post ERCP with pancreatic and bile duct stent placement - Clinically improving overall gradually - Abdominal pain gradually improved, very minimal now - Lipase trended down to 138 from 1999s - Remained afebrile - Blood cultures negative - Diet advanced to full liquids - only tolerating minimal intake - Continue cefepime plus Flagyl for total of 14 days of broad spectrum abx - worsening leukocytosis, repeat CT-AP with worsening pancreatitis and possible necrosis developing - no discrete fluid collection noted - continue IVF - General surgery concerned for possible development of necrotic pseudocyst/pancreatitis - ongoing discussion and evaluation for possible transfer to tertiary care facility if IR drainage felt to be needed - continue to closely monitor - repeat CT 05/02/2022 with worsening necrotizing pancreatitis - transfer to [facility] initiated in consultation with General Surgery Dr. Brewster 05/02/2022 (2) Hypertension: Plan: - uncontrolled - continue amlodipine 10mg, Carvedilol 6.25mg BID, lisinopril 40mg daily - continue hydralazine 50mg TID - monitor for response - continue to adjust medications as needed (3) Prediabetes: Plan: - noted Plan DVT ppx: heparin SC Code Status: Full Code Dispo: telemetry Jason Maurer MD Hospital Medicine Admission and Anticipated Discharge Date Admission Date: April 24, 2022 Subjective Patient with HTN presented with abdominal pain, n/v. Had ERCP with sphincterotomy, stent placement for choledocholithiasis and cholangitis. Started on broad spectrum abx for 2 weeks. Surgery consulted for cholecystectomy. Pancreatitis persistent and possible formation of necrotizing pancreatitis. Repeat CT 04/29/2022 without discrete fluid collection but worsening pancreatitis. Possible discussion for transfer to tertiary care facility on going and initiated 05/02/2022 due to worsening necrotizing pancreatitis on repeat CT 05/02/2022. Patient feels a little better today. Still without much appetite but eating more than prior days. Denies fevers or chills. Abdominal pain continues to improve. Denies dysuria, chest pain, shortness of breath. Review of Systems Review of Systems: all noted and negative except for above Physical Exam Physical Exam: General- oriented x 3, not in distress, speaks in sentences with no effort or accessory muscle use Eyes- anicteric Neck- no JVD Lungs- clear breath sounds bilaterally, no crackles or wheezing Heart- normal rate, regular rhythm; no murmurs Abdomen- normal bowel sounds, nondistended, soft, mild tenderness epigastric region Extremities- no pretibial edema, no calf tenderness Neuro- alert, oriented x 3; no gross focal neurologic deficits Skin- warm & dry Results & Data Results & Data ([facility]) Vital Signs (Past 12 Hours) Vital Signs Temp Pulse Pulse Resp BP Pulse Ox O2 Del Method 05/02/22 08:00 104 H 05/02/22 07:09 36.9 C 103 H 18 167/78 H 98 Room Air 05/01/22 23:54 94 H Diagnostic Findings Laboratory Results WBC 24.38 K/ul (4.8-10.8) H 05/02/22 06:05 RBC 3.58 M/uL (4.63-6.08) L 05/02/22 06:05 Hgb 10.8 g/dl (14.0-18.0) L 05/02/22 06:05 Hct 31.5 % (40.1-51.0) L 05/02/22 06:05 MCV 88.0 fL (80.0-100.0) 05/02/22 06:05 MCH 30.2 pg (25.0-34.0) 05/02/22 06:05 MCHC 34.3 g/dL (32.0-36.0) 05/02/22 06:05 RDW Std Deviation 47.9 fL (36.4-46.3) H 05/02/22 06:05 RDW Coeff of Fred 14.8 % (11.5-14.5) H 05/02/22 06:05 Plt Count 274 K/uL (130-400) 05/02/22 06:05 MPV 11.6 fL (9.4-12.4) 05/02/22 06:05 Immature Gran % (Auto) 4.2 % 05/02/22 06:05 Neut % (Auto) 87.7 % 05/02/22 06:05 Lymph % (Auto) 2.7 % 05/02/22 06:05 [place] % (Auto) 4.4 % 05/02/22 06:05 Eos % (Auto) 0.7 % 05/02/22 06:05 Baso % (Auto) 0.3 % 05/02/22 06:05 Neut # (Auto) 21.38 K/uL (1.4-6.5) H 05/02/22 06:05 Lymph # (Auto) 0.65 K/uL (1.2-3.4) L 05/02/22 06:05 [place] # (Auto) 1.07 K/uL (0.24-0.82) H 05/02/22 06:05 Eos # (Auto) 0.18 K/uL (0-0.50) 05/02/22 06:05 Baso # (Auto) 0.08 K/uL (0-0.2) 05/02/22 06:05 Immature Gran # (Auto) 1.02 K/uL (0.00-0.02) H 05/02/22 06:05 Toxic Granulation 2+ 05/02/22 06:05 Toxic Vacuolation 1+ 04/25/22 07:32 Platelet Estimate Normal (Normal) 04/27/22 07:49 Hypochromasia Present 05/02/22 06:05 Echinocytes 1+ 04/29/22 07:22 PT 10.9 Seconds (9.0-12.0) 04/24/22 21:42 INR 1.0 (0.9-1.1) 04/24/22 21:42 APTT 24.0 Seconds (21.0-31.0) 04/24/22 21:42 PTT Ratio 0.9 04/24/22 21:42 Sodium 134 mmol/L (136-145) L 05/02/22 06:05 Potassium 3.4 mmol/L (3.5-5.1) L 05/02/22 06:05 Chloride 101 mmol/L (98-107) 05/02/22 06:05 Carbon Dioxide 26 mmol/L (21-32) 05/02/22 06:05 Anion Gap 7 (3-11) 05/02/22 06:05 BUN 33 mg/dl (6-23) H 05/02/22 06:05 Creatinine 1.03 mg/dl (0.6-1.4) 05/02/22 06:05 Est Cr Clr Drug Dosing 84.8 ml/min 05/02/22 06:05 Est GFR ( Amer) 90.4 ml/min 05/02/22 06:05 Est GFR (Non-Af Amer) 78.0 ml/min 05/02/22 06:05 BUN/Creatinine Ratio 32.0 (10-20) H 05/02/22 06:05 Glucose 217 mg/dl (70-99(Fasting)) H 05/02/22 06:05 POC Glucose 296 mg/dl (70-99) H 05/01/22 20:54 Estimat Average Glucose 117 mg/dl 04/24/22 18:15 Hemoglobin A1c 5.7 % (4.5-5.6) H 04/24/22 18:15 Calcium 7.3 mg/dl (8.5-10.1) L 05/02/22 06:05 Phosphorus 2.6 mg/dl (2.5-4.9) 05/02/22 06:05 Magnesium 2.1 mg/dl (1.7-2.4) 05/02/22 06:05 Total Bilirubin 0.8 mg/dl (0.2-1.0) 05/01/22 06:30 Direct Bilirubin 1.1 mg/dl (0-0.2) H 04/24/22 21:04 AST 17 U/L (13-39) 05/01/22 06:30 ALT 29 U/L (7-52) 05/01/22 06:30 Alkaline Phosphatase 101 U/L (34-104) 05/01/22 06:30 Troponin I High Sens 11.5 pg/ml (0-20) 04/24/22 21:04 Total Protein 5.6 gm/dl (6.0-8.3) L 05/01/22 06:30 Albumin 2.8 gm/dl (3.4-5.0) L 05/01/22 06:30 Globulin 2.8 gm/dl (2.5-4.0) 05/01/22 06:30 Albumin/Globulin Ratio 1.0 (0.9-2) 05/01/22 06:30 Triglycerides 95 mg/dl (0-150) 04/24/22 21:04 Lipase 138 U/L (11-82) H 04/28/22 06:10 Urine Color [place] 04/24/22 18:15 Urine Appearance Cloudy (Clear) A 04/24/22 18:15 Urine pH 5.5 (4.5-7.5) 04/24/22 18:15 Ur Specific [place] 1.029 (1.000-1.030) 04/24/22 18:15 Urine Protein 1+ (Negative) H 04/24/22 18:15 Urine Glucose (UA) Trace (Negative) H 04/24/22 18:15 Urine Ketones 1+ (Negative) H 04/24/22 18:15 Urine Blood Negative (Negative) 04/24/22 18:15 Urine Nitrite Positive (Negative) A 04/24/22 18:15 Urine Bilirubin 3+ (Negative) H 04/24/22 18:15 Urine Urobilinogen Negative (Negative) 04/24/22 18:15 Ur Leukocyte Esterase 1+ (Negative) H 04/24/22 18:15 Urine WBC (Auto) 10-30 /hpf (0-5) H 04/24/22 18:15 Urine RBC (Auto) 0-4 /hpf (0-4) 04/24/22 18:15 U Hyaline Cast (Auto) >30 /lpf (0-5) H 04/24/22 18:15 U Epithel Cells (Auto) >30 /lpf (0-5) H 04/24/22 18:15 Urine Bacteria (Auto) 1+ (Negative) H 04/24/22 18:15 Calcium Oxalate Crystal Present (None Prsent) A 04/24/22 18:15 Amorphous Sediment Present (None Prsent) A 04/24/22 18:15 WBC Casts 10-20 /lpf (0) H 04/24/22 18:15 Urine Mucus Present (None Prsent) A 04/24/22 18:15 Stl C. diff Tox B Gene Negative Cdiff Gene (Neg) 04/30/22 03:15 SARS-CoV-2, RNA, NAAT NEGATIVE (NEGATIVE) 04/24/22 20:30 Impressions Cholangiopancreatography MRI 04/24/22 21:13 MR MRCP HISTORY: 62 years-old Male abd pain, abn lfts acutely elevated LFTs COMPARISON: CT abdomen and pelvis of same day TECHNIQUE: MRCP was obtained without the use of IV contrast utilizing institutional protocol. FINDINGS: Interstitial and peripancreatic edema with free fluid within the lesser sac tracking along the pericolic gutters and into the central mesentery. Trace left pleural effusion. The study is motion degraded. Mild nonspecific wall thickening of the distal esophagus. No bowel obstruction or bowel wall thickening. Aorta and IVC are unremarkable. No lymphadenopathy identified. There are a few T2 hyperintense foci noted within the left kidney measuring up to 1.2 cm suggestive of probable cysts. There is no hydronephrosis. Colonic diverticulosis. Tiny gallstones are noted within the gallbladder neck. There is no gallbladder wall thickening. The common bile duct is normal in caliber measuring 4 mm. No choledocholithiasis identified. No pancreatic ductal dilation identified. Filling defect noted within the superior mesenteric vein. Suboptimal visualization of the splenic vein. IMPRESSION: 1. Motion degraded exam. 2. Acute pancreatitis. No evidence of pancreatic ductal dilation or acute peripancreatic fluid collection. 3. 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 The splenic vein is not well visualized. 4. Cholelithiasis without evidence of acute cholecystitis, choledocholithiasis or biliary ductal dilation. ACT 112: Negative or not required by law. The above report was generated using voice recognition software. It may contain grammatical, syntax or spelling errors. Electronically signed by: Finn Lagos M.D. 04/25/2022 8:03 AM Chest X-Ray 05/01/22 13:02 SINGLE VIEW CHEST CLINICAL HISTORY: Dyspnea. IV placement. FINDINGS: 2 AP, portable, upright chest radiographs compared to study dated 04/25/2022 and correlated with chest CT dated 09/04/2020. The examination is degraded by portable technique and apical lordotic positioning. No catheter is identified. The cardiomediastinal heart is top normal for projection. There is bibasilar scarring/atelectasis. The lungs and pleural spaces are otherwise clear. No pneumothorax is seen. The bony thorax is grossly intact. IMPRESSION: No acute cardiopulmonary abnormality. ACT 112: Negative or not required by law. Electronically signed by: Leroy Schuler M.D. 05/01/2022 2:08 PM Medications Administered Current Inpatient Medications Acetaminophen (Acetaminophen 500 Mg Tab) 500 mg PO Q6H PRN PRN Reason: pain/fever Stop: 05/24/22 21:16 Amlodipine Besylate (Amlodipine Besylate 5 Mg Tab) 10 mg PO QAM [facility] Stop: 05/28/22 06:19 Last Admin: 05/01/22 08:57 Dose: 10 mg Carvedilol (Carvedilol 6.25 Mg Tab) 6.25 mg PO BID [facility] Stop: 05/29/22 20:59 Last Admin: 05/01/22 20:10 Dose: 6.25 mg Heparin Sodium (Porcine) (Heparin Sod 5,000 Unit/0.5 Ml Vial) 5,000 units SQ Q8 [facility] Stop: 05/30/22 21:59 Last Admin: 05/02/22 05:23 Dose: 5,000 units Hydralazine HCl (Hydralazine Hcl 20 Mg/Ml Vial) 5 mg IV Q4H PRN PRN Reason: systolic bp > 160 Stop: 05/25/22 16:43 Last Admin: 04/30/22 08:16 Dose: 5 mg Hydralazine HCl (Hydralazine Tab 50 Mg Tab) 50 mg PO TID [facility] Stop: 05/30/22 08:59 Last Admin: 05/01/22 20:09 Dose: 50 mg Hydromorphone HCl (Hydromorphone Inj 0.5 Mg/0.5 Ml Syr) 0.5 mg IV Q3H PRN PRN Reason: Pain Stop: 05/08/22 21:16 Last Admin: 04/28/22 22:09 Dose: 0.5 mg Promethazine HCl 12.5 mg/ (Sodium Chloride) 50.5 mls @ 202 mls/hr IV Q6H PRN PRN Reason: Nausea And Vomiting Stop: 05/24/22 21:16 Metronidazole (Flagyl) 500 mg in 100 mls @ 100 mls/hr IV Q8H [facility] Stop: 05/05/22 14:44 Last Infusion: 05/02/22 06:25 Dose: Infused Lorazepam 0.5 mg/ Syringe 0.5 mls @ 2 mls/min IV Q4H PRN PRN Reason: Anxiety Stop: 05/27/22 23:51 Cefepime HCl 2,000 mg/ Syringe 20 mls @ 5 mls/min IV Q12H [facility] Stop: 05/07/22 04:59 Last Admin: 05/02/22 02:02 Dose: 5 mls/min Dextrose (D10w) 1,000 mls @ 0 mls/hr IV .Q0M PRN PRN Reason: protocol (see label comments) Stop: 06/01/22 15:59 Lisinopril (Lisinopril 40 Mg Tab) 40 mg PO QAM [facility] Stop: 05/28/22 14:44 Last Admin: 05/01/22 08:59 Dose: 40 mg Loperamide HCl (Loperamide Hcl 2 Mg Cap) 2 mg PO Q6 PRN PRN Reason: diarrhea Stop: 05/30/22 13:09 Last Admin: 05/01/22 13:56 Dose: 2 mg Melatonin (Melatonin 3 Mg Tab) 3 mg PO HS PRN PRN Reason: Sleep Stop: 05/28/22 21:31 Last Admin: 04/29/22 22:09 Dose: 3 mg Miscellaneous Information (Tpn/Ppn Consult Pharmacy) 1 each N/A UD PRN PRN Reason: Consult Stop: 06/01/22 12:59 Oxycodone HCl (Oxycodone Hcl Ir 5 Mg Tab (Immediate Release)) 5 mg PO Q4H PRN PRN Reason: Pain Stop: 05/08/22 21:18 Last Admin: 04/29/22 04:35 Dose: 5 mg Potassium Chloride (Potassium Chloride Crtab 20 Meq Tabcr) 40 meq PO TODAY@0715 [facility] Stop: 05/03/22 11:00 Potassium Phosphate (Pot Phosphate Monobasic W/ Sod Tab) 1 tab PO QID [facility] Stop: 05/28/22 08:59 Last Admin: 05/01/22 20:10 Dose: 1 tab (1) Acute pancreatitis Acute pancreatitis complication: unspecified Pancreatitis type: unspecified pancreatitis type Qualified Code(s): K85.90 - Acute pancreatitis without necrosis or infection, unspecified
[2022-05-02] MEDS: POT PHOSPHATE MONOBASIC W/ SOD TAB PO SCH ×4 (11:45→21:19)
[2022-05-02] MEDS: hydrALAZINE TAB 50 MG TAB PO SCH ×3 (11:45→21:20)
[2022-05-02] MEDS: carvediloL 6.25 MG TAB PO SCH ×2 (11:46→21:19)
[2022-05-02] MEDS ORDERED: CARBOHYDRATES FOR HYPOGLYCEMIA PO PRN (12:15)
[2022-05-02] MEDS ORDERED: GLUCOSE 10 TAB/TUBE PO PRN (12:15)
[2022-05-02] MEDS ORDERED: GLUCAGON FOR INJ 1 MG VIAL IM PRN (12:15)
[2022-05-02] MEDS ORDERED: GLUCOSE 40% GEL 15 GM TUBE PO PRN (12:15)
[2022-05-02] MEDS ORDERED: DEXTROSE 50% 50 ML SYRINGE IV PRN (12:15)
[2022-05-02] MEDS ORDERED: TPN/PPN CONSULT PHARMACY PRN (13:00)
[2022-05-02] MEDS: LANTUS PER UNIT CHARGE SQ SCH (13:18)
[2022-05-02] MEDS: INSULIN ASPART PER UNIT SC SCH ×3 (13:18→23:51)
[2022-05-02] MEDS: amLODIPine BESYLATE 5 MG TAB PO SCH (13:42)
[2022-05-02] MEDS: lisinopril 40 MG TAB PO SCH (13:42)
[2022-05-02] MEDS: LACTATED RINGER'S 1,000 ML IV SCH (13:50)
--- NOTE | 2022-05-02 14:23 | CT Scan Report ---
ABDOMEN AND PELVIS CT WITH IV CONTRAST CT DOSE: 976.10 mGy.cm HISTORY: Worsening mid abdominal pain. eval extent of patients pancreatitis TECHNIQUE: Multiaxial CT images of the abdomen and pelvis were performed following the use of intrave nous contrast. A dose lowering technique was utilized adhering to the principles of ALARA. COMPARISON STUDY: Abdomen and pelvis CT 04/29/2022. FINDINGS: No change in the small left pleural effusion and left basilar densities. No pneumoperitoneu m. No pneumatosis. No fractures within the visualized osseous structures. Moderate to severe body wal l edema which has progressed. The bladder is unremarkable. Small amount of ascites remains unchanged. Trace pneumobilia again noted. No hepatic or splenic masses. The main portal vein is patent. There i s moderate mass effect along the proximal superior mesenteric vein without evidence for thrombus. 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 The adrenal glands and gallbladder are unremarkable. No hydronephrosis. A few bilateral renal hypodense lesions which favor cysts. The abdominal aorta is normal in caliber. The main pancreatic duct and common bile duct stents appear in good position. Ther e are 2 vascular clips noted at the duodenum. There is persistent bowel wall thickening involving the duodenum and descending colon. This could be reactive to the pancreatitis. Peripancreatic fluid and inflammatory change has slightly progressed. There is heterogeneous enhancement/edema seen throughout the majority of the pancreas consistent with pancreatic necrosis. There is approximately 75% necrosi s of the pancreatic parenchyma identified. There is a punctate stone within the right kidney, unchang ed. No loculated peripancreatic fluid collections identified at this time. There are small fat-contai kiko right inguinal hernia. Normal bladder. Colonic diverticulosis. Normal appendix. Thickening of th e gastric wall is also likely reactive to the adjacent pancreatitis. IMPRESSION: 1. Interval progression of the peripancreatic inflammatory change/edema with approximately 75% necros is of the pancreatic parenchyma. Findings are consistent with worsening acute pancreatitis. Underlyin g hemorrhagic change would be difficult to exclude given the heterogeneous appearance of the pancreas but is considered less likely. 2. 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 There is mass effect without thrombus within th e proximal superior mesenteric vein. 3. The common bile duct and main pancreatic duct stents appear and good position. 4. Progressive body wall edema. 5. Small amount of ascites persists. 6. Small left pleural effusion, unchanged. 7. Right-sided nephrolithiasis. 8. Bowel wall thickening involving the stomach, duodenum, and descending colon. This is nonspecific b ut likely reactive to the acute pancreatitis. ACT 112: Negative or not required by law. Electronically signed by: Juan Luis Sullivan M.D. 05/02/2022 2:21 PM
[2022-05-02] MEDS ORDERED: PERIPHERAL TPN IV SCH (16:00)
[2022-05-02] MEDS ORDERED: DEXTROSE 10% 1,000 ML IV PRN (16:00)
[2022-05-02] MEDS ORDERED: D5W IV SCH (16:00)
[2022-05-02] MEDS ORDERED: AMINO ACIDS 4.25% IV SCH (16:00)
[2022-05-02] MEDS ORDERED: CLINOLIPID 20% IV FAT EMULSION 250 ML IV SCH (16:00)
[2022-05-02] MEDS ORDERED: Nursing to Pharmacy Communication SCH (19:15)
[2022-05-02] MEDS ORDERED: STOP CLINOLIPID SCH (22:00)
[2022-05-03] MEDS: CEFEPIME 2,000 MG in SYRINGE 0 ML IV SCH ×2 (01:57→13:19)
[2022-05-03] MEDS: LACTATED RINGER'S 1,000 ML IV SCH (01:57)
[2022-05-03] MEDS: INSULIN ASPART PER UNIT SC SCH ×3 (06:22→18:19)
[2022-05-03] MEDS: HEPARIN SOD 5,000 UNIT/0.5 ML VIAL SQ SCH ×2 (06:26→13:20)
[2022-05-03] MEDS: metroNIDAZOLE 500 MG/100 ML BAG IV SCH ×2 (06:38→13:19)
[2022-05-03] MEDS ORDERED: POTASSIUM CHLORIDE CRTAB 20 MEQ TABCR PO SCH (07:15)
[2022-05-03] MEDS: amLODIPine BESYLATE 5 MG TAB PO SCH (08:11)
[2022-05-03] MEDS: lisinopril 40 MG TAB PO SCH (08:11)
[2022-05-03] MEDS: hydrALAZINE TAB 50 MG TAB PO SCH ×2 (08:11→13:20)
[2022-05-03] MEDS: POT PHOSPHATE MONOBASIC W/ SOD TAB PO SCH ×3 (08:11→17:15)
[2022-05-03] MEDS: carvediloL 6.25 MG TAB PO SCH (08:12)
[2022-05-03] MEDS: LANTUS PER UNIT CHARGE SQ SCH (08:44)
[2022-05-03 08:53] LABS: Hematocrit (blood only) 32.5 % (40.1-51.0); Hemoglobin 11.1 g/dl (14.0-18.0); Mean Corpuscular Hemoglobin 30.2 pg (25.0-34.0); Mean Corpuscular Hgb Conc 34.2 g/dL (32.0-36.0); Mean Corpuscular Volume 88.6 fL (80.0-100.0); Mean Platelet Volume 11.2 fL (9.4-12.4); Platelet Count 319 K/uL (130-400); RDW Coefficient of Variation 14.8 % (11.5-14.5); RDW Standard Deviation 47.8 fL (36.4-46.3); Red Blood Count 3.67 M/uL (4.63-6.08); White Blood Count 25.64 K/ul (4.8-10.8)
[2022-05-03 09:15] LABS: Basophils # (auto) 0.09 K/uL (0-0.2); Basophils % (auto) 0.4 %; Echinocytes 1+; Eosinophils % (auto) 0.8 %; Immature Granulocytes # (auto) 0.88 K/uL (0.00-0.02); Immature Granulocytes % (auto) 3.4 %; Lymphocytes # (auto) 0.67 K/uL (1.2-3.4); Lymphocytes % (auto) 2.6 %; Monocytes # (auto) 1.26 K/uL (0.24-0.82); Monocytes % (auto) 4.9 %; Neutrophils # (auto) 22.54 K/uL (1.4-6.5); Neutrophils % (auto) 87.9 %; Polychromasia 1+
[2022-05-03 09:15] LABS: Calcium 7.4 mg/dl (8.5-10.1); Creatinine Clr Calc Pharmacy 89.8 ml/min; Est GFR (African American) 97.3 ml/min; Est GFR (Non-African American) 83.9 ml/min; Phosphorus 2.7 mg/dl (2.5-4.9); Potassium 3.7 mmol/L (3.5-5.1)
--- NOTE | 2022-05-03 11:55 | Hospitalist Progress Note ---
Date of Service May 03, 2022 Assessment & Plan (1) Acute pancreatitis: Plan: - 04/25 status post ERCP with pancreatic and bile duct stent placement - Clinically improving overall gradually - Abdominal pain gradually improved, very minimal now - Lipase trended down to 138 from 1999s - Remained afebrile - Blood cultures negative - Diet advanced to full liquids - only tolerating minimal intake - Continue cefepime plus Flagyl for total of 14 days of broad spectrum abx - worsening leukocytosis, repeat CT-AP with worsening pancreatitis and possible necrosis developing - no discrete fluid collection noted - started on PPN due to >7 days with minimal po intake - continue to closely monitor - repeat CT 05/02/2022 with worsening necrotizing pancreatitis - transfer to [facility] initiated in consultation with General Surgery Dr. Brewster 05/02/2022 (2) Hypertension: Plan: - continue amlodipine 10mg, Carvedilol 6.25mg BID, lisinopril 40mg daily - continue hydralazine 50mg TID - monitor for response - continue to adjust medications as needed (3) Prediabetes: Plan: - noted - due to pancreatitis, BG has been elevated - diabetic pharmacy consult placed - started on lantus and SSI - FSG q6h while on PPN Plan DVT ppx: heparin SC Code Status: Full Code Dispo: telemetry Jason Maurer MD Hospital Medicine Admission and Anticipated Discharge Date Admission Date: April 24, 2022 Subjective Patient with HTN presented with abdominal pain, n/v. Had ERCP with sphincterotomy, stent placement for choledocholithiasis and cholangitis. Started on broad spectrum abx for 2 weeks. Surgery consulted for cholecystectomy. Pancreatitis persistent and possible formation of necrotizing pancreatitis. Repeat CT 04/29/2022 without discrete fluid collection but worsening pancreatitis. Possible discussion for transfer to tertiary care facility on going and initiated 05/02/2022 due to worsening necrotizing pancreatitis on repeat CT 05/02/2022. Patient feels a little better today. Still without much appetite on clear liquid diet. Denies fevers or chills. Abdominal pain is stable. Patient anxious about getting transferred to [facility]. Denies dysuria, chest pain, shortness of breath. Review of Systems Review of Systems: all noted and negative except for above Physical Exam Physical Exam: General- oriented x 3, not in distress, speaks in sentences with no effort or accessory muscle use Eyes- anicteric Neck- no JVD Lungs- clear breath sounds bilaterally, no crackles or wheezing Heart- normal rate, regular rhythm; no murmurs Abdomen- normal bowel sounds, nondistended, soft, mild tenderness in LLQ region Extremities- no pretibial edema, no calf tenderness Neuro- alert, oriented x 3; no gross focal neurologic deficits Skin- warm & dry Results & Data Results & Data ([facility]) Vital Signs (Past 12 Hours) Vital Signs Temp Pulse Pulse Pulse Resp BP Pulse Ox 05/03/22 11:01 36.6 C 99 H 150/78 H 94 05/03/22 09:00 05/03/22 07:30 99 H 05/03/22 07:24 37.0 C 106 H 20 179/85 H 95 05/03/22 04:29 37.2 C 102 H 20 156/75 H 95 O2 Del Method 05/03/22 11:01 Room Air 05/03/22 09:00 Room Air 05/03/22 07:30 05/03/22 07:24 Room Air 05/03/22 04:29 Room Air Diagnostic Findings Laboratory Results WBC 25.64 K/ul (4.8-10.8) H 05/03/22 08:45 RBC 3.67 M/uL (4.63-6.08) L 05/03/22 08:45 Hgb 11.1 g/dl (14.0-18.0) L 05/03/22 08:45 Hct 32.5 % (40.1-51.0) L 05/03/22 08:45 MCV 88.6 fL (80.0-100.0) 05/03/22 08:45 MCH 30.2 pg (25.0-34.0) 05/03/22 08:45 MCHC 34.2 g/dL (32.0-36.0) 05/03/22 08:45 RDW Std Deviation 47.8 fL (36.4-46.3) H 05/03/22 08:45 RDW Coeff of Fred 14.8 % (11.5-14.5) H 05/03/22 08:45 Plt Count 319 K/uL (130-400) 05/03/22 08:45 MPV 11.2 fL (9.4-12.4) 05/03/22 08:45 Immature Gran % (Auto) 3.4 % 05/03/22 08:45 Neut % (Auto) 87.9 % 05/03/22 08:45 Lymph % (Auto) 2.6 % 05/03/22 08:45 [place] % (Auto) 4.9 % 05/03/22 08:45 Eos % (Auto) 0.8 % 05/03/22 08:45 Baso % (Auto) 0.4 % 05/03/22 08:45 Neut # (Auto) 22.54 K/uL (1.4-6.5) H 05/03/22 08:45 Lymph # (Auto) 0.67 K/uL (1.2-3.4) L 05/03/22 08:45 [place] # (Auto) 1.26 K/uL (0.24-0.82) H 05/03/22 08:45 Eos # (Auto) 0.20 K/uL (0-0.50) 05/03/22 08:45 Baso # (Auto) 0.09 K/uL (0-0.2) 05/03/22 08:45 Immature Gran # (Auto) 0.88 K/uL (0.00-0.02) H 05/03/22 08:45 Toxic Granulation 2+ 05/02/22 06:05 Toxic Vacuolation 1+ 04/25/22 07:32 Platelet Estimate Normal (Normal) 04/27/22 07:49 Polychromasia 1+ 05/03/22 08:45 Hypochromasia Present 05/02/22 06:05 Echinocytes 1+ 05/03/22 08:45 PT 10.9 Seconds (9.0-12.0) 04/24/22 21:42 INR 1.0 (0.9-1.1) 04/24/22 21:42 APTT 24.0 Seconds (21.0-31.0) 04/24/22 21:42 PTT Ratio 0.9 04/24/22 21:42 Sodium 133 mmol/L (136-145) L 05/03/22 08:44 Potassium 3.7 mmol/L (3.5-5.1) 05/03/22 08:44 Chloride 102 mmol/L (98-107) 05/03/22 08:44 Carbon Dioxide 26 mmol/L (21-32) 05/03/22 08:44 Anion Gap 5 (3-11) 05/03/22 08:44 BUN 33 mg/dl (6-23) H 05/03/22 08:44 Creatinine 0.97 mg/dl (0.6-1.4) 05/03/22 08:44 Est Cr Clr Drug Dosing 89.8 ml/min 05/03/22 08:44 Est GFR ( Amer) 97.3 ml/min 05/03/22 08:44 Est GFR (Non-Af Amer) 83.9 ml/min 05/03/22 08:44 BUN/Creatinine Ratio 34.0 (10-20) H 05/03/22 08:44 Glucose 149 mg/dl (70-99(Fasting)) H 05/03/22 08:44 POC Glucose 157 mg/dl (70-99) H 05/03/22 06:15 Estimat Average Glucose 117 mg/dl 04/24/22 18:15 Hemoglobin A1c 5.7 % (4.5-5.6) H 04/24/22 18:15 Calcium 7.4 mg/dl (8.5-10.1) L 05/03/22 08:44 Ionized Calcium 1.06 mmol/L (1.12-1.32) L 05/03/22 08:44 Phosphorus 2.7 mg/dl (2.5-4.9) 05/03/22 08:44 Magnesium 2.0 mg/dl (1.7-2.4) 05/03/22 08:44 Total Bilirubin 0.8 mg/dl (0.2-1.0) 05/01/22 06:30 Direct Bilirubin 1.1 mg/dl (0-0.2) H 04/24/22 21:04 AST 17 U/L (13-39) 05/01/22 06:30 ALT 29 U/L (7-52) 05/01/22 06:30 Alkaline Phosphatase 101 U/L (34-104) 05/01/22 06:30 Troponin I High Sens 11.5 pg/ml (0-20) 04/24/22 21:04 Total Protein 5.6 gm/dl (6.0-8.3) L 05/01/22 06:30 Albumin 2.8 gm/dl (3.4-5.0) L 05/01/22 06:30 Globulin 2.8 gm/dl (2.5-4.0) 05/01/22 06:30 Albumin/Globulin Ratio 1.0 (0.9-2) 05/01/22 06:30 Triglycerides 100 mg/dl (0-150) 05/03/22 08:44 Lipase 138 U/L (11-82) H 04/28/22 06:10 Urine Color [place] 04/24/22 18:15 Urine Appearance Cloudy (Clear) A 04/24/22 18:15 Urine pH 5.5 (4.5-7.5) 04/24/22 18:15 Ur Specific [place] 1.029 (1.000-1.030) 04/24/22 18:15 Urine Protein 1+ (Negative) H 04/24/22 18:15 Urine Glucose (UA) Trace (Negative) H 04/24/22 18:15 Urine Ketones 1+ (Negative) H 04/24/22 18:15 Urine Blood Negative (Negative) 04/24/22 18:15 Urine Nitrite Positive (Negative) A 04/24/22 18:15 Urine Bilirubin 3+ (Negative) H 04/24/22 18:15 Urine Urobilinogen Negative (Negative) 04/24/22 18:15 Ur Leukocyte Esterase 1+ (Negative) H 04/24/22 18:15 Urine WBC (Auto) 10-30 /hpf (0-5) H 04/24/22 18:15 Urine RBC (Auto) 0-4 /hpf (0-4) 04/24/22 18:15 U Hyaline Cast (Auto) >30 /lpf (0-5) H 04/24/22 18:15 U Epithel Cells (Auto) >30 /lpf (0-5) H 04/24/22 18:15 Urine Bacteria (Auto) 1+ (Negative) H 04/24/22 18:15 Calcium Oxalate Crystal Present (None Prsent) A 04/24/22 18:15 Amorphous Sediment Present (None Prsent) A 04/24/22 18:15 WBC Casts 10-20 /lpf (0) H 04/24/22 18:15 Urine Mucus Present (None Prsent) A 04/24/22 18:15 Stl C. diff Tox B Gene Negative Cdiff Gene (Neg) 04/30/22 03:15 SARS-CoV-2, RNA, NAAT NEGATIVE (NEGATIVE) 05/02/22 11:45 Impressions Cholangiopancreatography MRI 04/24/22 21:13 MR MRCP HISTORY: 62 years-old Male abd pain, abn lfts acutely elevated LFTs COMPARISON: CT abdomen and pelvis of same day TECHNIQUE: MRCP was obtained without the use of IV contrast utilizing institutional protocol. FINDINGS: Interstitial and peripancreatic edema with free fluid within the lesser sac tracking along the pericolic gutters and into the central mesentery. Trace left pleural effusion. The study is motion degraded. Mild nonspecific wall thickening of the distal esophagus. No bowel obstruction or bowel wall thickening. Aorta an d IVC are unremarkable. No lymphadenopathy identified. There are a few T2 hyperintense foci noted within the left kidney measuring up to 1.2 cm suggestive of probable cysts. There is no hydronephrosis. Colonic diverticulosis. Tiny gallstones are noted within the gallbladder neck. There is no gallbladder wall thickening. The common bile duct is normal in caliber measuring 4 mm. No choledocholithiasis identified. No pancreatic ductal dilation identified. Filling defect noted within the superior mesenteric vein. Suboptimal visualization of the splenic vein. IMPRESSION: 1. Motion degraded exam. 2. Acute pancreatitis. No evidence of pancreatic ductal dilation or acute peripancreatic fluid collection. 3. 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 The splenic vein is not well visualized. 4. Cholelithiasis without evidence of acute cholecystitis, choledocholithiasis or biliary ductal dilation. ACT 112: Negative or not required by law. The above report was generated using voice recognition software. It may contain grammatical, syntax or spelling errors. Electronically signed by: Finn Lagos M.D. 04/25/2022 8:03 AM Chest X-Ray 05/01/22 13:02 SINGLE VIEW CHEST CLINICAL HISTORY: Dyspnea. IV placement. FINDINGS: 2 AP, portable, upright chest radiographs compared to study dated 04/25/2022 and correlated with chest CT dated 09/04/2020. The examination is degraded by portable technique and apical lordotic positioning. No catheter is identified. The cardiomediastinal heart is top normal for projection. There is bibasilar scarring/atelectasis. The lungs and pleural spaces are otherwise clear. No pneumothorax is seen. The bony thorax is grossly intact. IMPRESSION: No acute cardiopulmonary abnormality. ACT 112: Negative or not required by law. Electronically signed by: Leroy Schuler M.D. 05/01/2022 2:08 PM Abdomen/Pelvis CT 05/02/22 07:[address] WITH IV CONTRAST CT DOSE: 976.10 mGy.cm HISTORY: Worsening mid abdominal pain. eval extent of patients pancreatitis TECHNIQUE: Multiaxial CT images of the abdomen and pelvis were performed following the use of intravenous contrast. A dose lowering technique was utilized adhering to the principles of ALARA. COMPARISON STUDY: Abdomen and pelvis CT 04/29/2022. FINDINGS: No change in the small left pleural effusion and left basilar densities. No pneumoperitoneum. No pneumatosis. No fractures within the visualized osseous structures. Moderate to severe body wall edema which has progressed. The bladder is unremarkable. Small amount of ascites remains unchanged. Trace pneumobilia again noted. No hepatic or splenic masses. The main portal vein is patent. There is moderate mass effect along the proximal superior mesenteric vein without evidence for thrombus. 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 The adrenal glands and gallbladder are unremarkable. No hydronephrosis. A few bilateral renal hypodense lesions which favor cysts. The abdominal aorta is normal in caliber. The main pancreatic duct and common bile duct stents appear in good position. There are 2 vascular clips noted at the duodenum. There is persistent bowel wall thickening involving the duodenum and descending colon. This could be reactive to the pancreatitis. Peripancreatic fluid and inflammatory change has slightly progressed. There is heterogeneous enhancement/edema seen throughout the majority of the pancreas consistent with pancreatic necrosis. There is approximately 75% necrosis of the pancreatic parenchyma identified. There is a punctate stone within the right kidney, unchanged. No loculated peripancreatic fluid collections identified at this time. There are small fat-containing right inguinal hernia. Normal bladder. Colonic diverticulosis. Normal appendix. Thickening of the gastric wall is also likely reactive to the adjacent pancreatitis. IMPRESSION: 1. Interval progression of the peripancreatic inflammatory change/edema with approximately 75% necrosis of the pancreatic parenchyma. Findings are consistent with worsening acute pancreatitis. Underlying hemorrhagic change would be difficult to exclude given the heterogeneous appearance of the pancreas but is considered less likely. 2. 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 There is mass effect without thrombus within the proximal superior mesenteric vein. 3. The common bile duct and main pancreatic duct stents appear and good position. 4. Progressive body wall edema. 5. Small amount of ascites persists. 6. Small left pleural effusion, unchanged. 7. Right-sided nephrolithiasis. 8. Bowel wall thickening involving the stomach, duodenum, and descending colon. This is nonspecific but likely reactive to the acute pancreatitis. ACT 112: Negative or not required by law. Electronically signed by: Juan Luis Sullivan M.D. 05/02/2022 2:21 PM Medications Administered Current Inpatient Medications Acetaminophen (Acetaminophen 500 Mg Tab) 500 mg PO Q6H PRN PRN Reason: pain/fever Stop: 05/24/22 21:16 Amlodipine Besylate (Amlodipine Besylate 5 Mg Tab) 10 mg PO QAM [facility] Stop: 05/28/22 06:19 Last Admin: 05/03/22 08:11 Dose: 10 mg Carvedilol (Carvedilol 6.25 Mg Tab) 6.25 mg PO BID [facility] Stop: 05/29/22 20:59 Last Admin: 05/03/22 08:12 Dose: 6.25 mg Dextrose (Dextrose 50% 50 Ml Syringe) 25 - 50 ml IV UD PRN; Protocol PRN Reason: Hypoglycemia Protocol Stop: 06/01/22 12:14 Glucagon (Glucagon For Inj 1 Mg Vial) 1 mg IM UD PRN; Protocol PRN Reason: Hypoglycemia Protocol Stop: 06/01/22 12:14 Glucose (Glucose 40% Gel 15 Gm Tube) 15 - 30 gm PO UD PRN; Protocol PRN Reason: Hypoglycemia Protocol Stop: 06/01/22 12:14 Glucose (Glucose 10 Tab/Tube) 4 - 8 tab PO UD PRN; Protocol PRN Reason: Hypoglycemia Protocol Stop: 06/01/22 12:14 Heparin Sodium (Porcine) (Heparin Sod 5,000 Unit/0.5 Ml Vial) 5,000 units SQ Q8 [facility] Stop: 05/30/22 21:59 Last Admin: 05/03/22 06:26 Dose: 5,000 units Hydralazine HCl (Hydralazine Hcl 20 Mg/Ml Vial) 5 mg IV Q4H PRN PRN Reason: systolic bp > 160 Stop: 05/25/22 16:43 Last Admin: 04/30/22 08:16 Dose: 5 mg Hydralazine HCl (Hydralazine Tab 50 Mg Tab) 50 mg PO TID [facility] Stop: 05/30/22 08:59 Last Admin: 05/03/22 08:11 Dose: 50 mg Promethazine HCl 12.5 mg/ (Sodium Chloride) 50.5 mls @ 202 mls/hr IV Q6H PRN PRN Reason: Nausea And Vomiting Stop: 05/24/22 21:16 Metronidazole (Flagyl) 500 mg in 100 mls @ 100 mls/hr IV Q8H [facility] Stop: 05/05/22 14:44 Last Infusion: 05/03/22 07:38 Dose: Infused Lorazepam 0.5 mg/ Syringe 0.5 mls @ 2 mls/min IV Q4H PRN PRN Reason: Anxiety Stop: 05/27/22 23:51 Cefepime HCl 2,000 mg/ Syringe 20 mls @ 5 mls/min IV Q12H [facility] Stop: 05/07/22 04:59 Last Admin: 05/03/22 01:57 Dose: 5 mls/min Dextrose (D10w) 1,000 mls @ 0 mls/hr IV .Q0M PRN PRN Reason: protocol (see label comments) Stop: 06/01/22 15:59 Amino Acids 1,784 ml/ (Nutrition (Parenteral)) 1,784 mls @ 74 mls/hr IV .Q24H [facility]; Protocol Stop: 05/03/22 15:59 Last Admin: 05/02/22 16:17 Dose: 74 mls/hr Amino Acids 2,142 ml/ (Nutrition (Parenteral)) 2,142 mls @ 89 mls/hr IV .Q24H [facility]; Protocol Stop: 05/04/22 15:59 Insulin Aspart (Insulin Aspart Per Unit) 0 units SC Q6 [facility] Stop: 06/02/22 00:00 Last Admin: 05/03/22 06:22 Dose: 1 units Insulin Glargine (Lantus Per Unit Charge) 15 units SQ QAM [facility] Stop: 06/01/22 12:29 Last Admin: 05/03/22 08:44 Dose: 15 units Lisinopril (Lisinopril 40 Mg Tab) 40 mg PO QAM [facility] Stop: 05/28/22 14:44 Last Admin: 05/03/22 08:11 Dose: 40 mg Loperamide HCl (Loperamide Hcl 2 Mg Cap) 2 mg PO Q6 PRN PRN Reason: diarrhea Stop: 05/30/22 13:09 Last Admin: 05/01/22 13:56 Dose: 2 mg Melatonin (Melatonin 3 Mg Tab) 3 mg PO HS PRN PRN Reason: Sleep Stop: 05/28/22 21:31 Last Admin: 04/29/22 22:09 Dose: 3 mg Miscellaneous (Carbohydrates For Hypoglycemia ) 15 - 30 gm PO UD PRN PRN Reason: Hypoglycemia Treatment Stop: 06/01/22 12:14 Miscellaneous (Stop Clinolipid) 1 each N/A Q24H [facility] Stop: 06/01/22 21:59 Last Admin: 05/02/22 22:22 Dose: 1 each Miscellaneous Information (Tpn/Ppn Consult Pharmacy) 1 each N/A UD PRN PRN Reason: Consult Stop: 06/01/22 12:59 Potassium Phosphate (Pot Phosphate Monobasic W/ Sod Tab) 1 tab PO QID [facility] Stop: 05/28/22 08:59 Last Admin: 05/03/22 08:11 Dose: 1 tab (1) Acute pancreatitis Acute pancreatitis complication: unspecified Pancreatitis type: unspecified pancreatitis type Qualified Code(s): K85.90 - Acute pancreatitis without necrosis or infection, unspecified
--- NOTE | 2022-05-03 14:23 | Discharge Summary ---
Date of Service May 03, 2022 Admission HPI Per Admitting Provider Chief Complaint: Abdominal pain Primary Care Provider: Jerome Schultz DO History obtained from patient and records. Medical history significant for hypertension, H. pylori gastritis, prediabetes. Last confinement 2012 for UGI B. PUD seen on EGD. Patient discharged on PPI. 2 nights ago, patient noted achy epigastric pain followed by nausea vomiting symptoms after a fatty meal. No prior episodes. No chest pain, no shortness of breath. Last alcohol intake was 2 weeks ago. Patient denies dysuria. Some chills noted. Poor appetite. Patient consulted ER. IV Zosyn administered at the ER. Admission Exam Per Admitting Provider GENERAL: Pleasant, slightly uncomfortable, no respiratory distress SKIN: Normal color, warm HEENT: [place] palpebral conjunctivae, no ptosis, dry buccal mucosa NECK : Supple, no tenderness CHEST : CTA, no tenderness HEART : RRR, no obvious murmurs ABDOMEN: Some distention, epigastric tenderness EXTREMITIES : No LE swelling/tenderness, no other conspicuous deformities noted NEUROLOGIC : Coherent, no facial asymmetry, no other gross focality Principal Diagnosis choledocholithiasis and cholangitis s/p ERCP/sphincterotomy complicated by necrotizing pancreatitis Discharge Exam General- oriented x 3, not in distress, speaks in sentences with no effort or accessory muscle use Eyes- anicteric Neck- no JVD Lungs- clear breath sounds bilaterally, no crackles or wheezing Heart- normal rate, regular rhythm; no murmurs Abdomen- normal bowel sounds, nondistended, soft, mild tenderness in LLQ region Extremities- no pretibial edema, no calf tenderness Neuro- alert, oriented x 3; no gross focal neurologic deficits Skin- warm & dry Discharge Data Allergies Allergy/AdvReac Type Severity Reaction Status Date / Time amoxicillin [From Augmentin] Allergy angioedema Verified 04/24/22 20:38 clavulanic acid Allergy angioedema Verified 04/24/22 20:38 [From Augmentin] Consultations 04/24/22 19:55 ED Decision to Admit Stat 04/24/22 23:16 Consult Gastroenterology Routine 04/25/22 16:39 Consult General Surgery Routine 04/26/22 08:50 Consult Nephrology Routine 05/03/22 12:48 Burn CD for patient Routine Procedures Performed Operation Date: 04/25/22 11:50 Actual Procedures p Endoscopic Ultrasonography Upper(Not Applicable) - Carlie Chilel, p Endoscopic Retrograde Cholangiopancreato with Pancreatic and Biliary Stent Placed(Not Applicable) - Carlie Chilel, Ordered Studies 04/24/22 19:28 CT abd pelvis wo con Stat 04/24/22 21:13 MR MRCP Routine 04/25/22 [place] ERCP biliary ductal Routine 04/25/22 12:36 US upper EUS PACS images Routine 04/29/22 12:08 CT abd pelvis wo con Routine 05/02/22 07:34 CT abd pelvis IV con only Urgent Hospital Course (1) Acute pancreatitis: -04/25 status post ERCP with pancreatic and bile duct stent placement - Clinically improving overall gradually - Abdominal pain gradually improved, very minimal now - Lipase trended down to 138 from - Remained afebrile - Blood cultures negative - Diet advanced to full liquids - only tolerating minimal intake - Continue cefepime plus Flagyl for total of 14 days of broad spectrum abx - worsening leukocytosis, repeat CT-AP with worsening pancreatitis and possible necrosis developing - no discrete fluid collection noted - started on PPN due to >7 days with minimal po intake - continue to closely monitor - repeat CT 05/02/2022 with worsening necrotizing pancreatitis - [place] [facility] [place] in consultation with General Surgery Dr. Brewster 05/02/2022 - accepted for transfer and bed available room 205 at [facility] (2) Hypertension: - continue amlodipine 10mg, Carvedilol 6.25mg BID, lisinopril 40mg daily - continue hydralazine 50mg TID - monitor for response - continue to adjust medications as needed (3) Prediabetes: - noted - due to pancreatitis, BG has been elevated - diabetic pharmacy consult placed - started on lantus and SSI - FSG q6h while on PPN Plan DVT ppx: heparin SC Code Status: Full Code Dispo: med/surg Total Time Total Time Spent Total Time Spent (In Minutes): 35 Total Time Includes: Examination of the Patient, Discharge Planning, Medication Reconciliation and Communication With Other Providers Discharge Plan Discharge Items Patient Disposition: Transfer Acute Care Hospital Reason For Visit: PANCREATITIS Discharge Diagnosis: necrotizing pancreatitis Health Concerns: Current Inpatient Medications Acetaminophen (Acetaminophen 500 Mg Tab) 500 mg PO Q6H PRN PRN Reason: pain/fever Stop: 05/24/22 21:16 Amlodipine Besylate (Amlodipine Besylate 5 Mg Tab) 10 mg PO QAM [facility] Stop: 05/28/22 06:19 Last Admin: 05/03/22 08:11 Dose: 10 mg Carvedilol (Carvedilol 6.25 Mg Tab) 6.25 mg PO BID [facility] Stop: 05/29/22 20:59 Last Admin: 05/03/22 08:12 Dose: 6.25 mg Dextrose (Dextrose 50% 50 Ml Syringe) 25 - 50 ml IV UD PRN; Protocol PRN Reason: Hypoglycemia Protocol Stop: 06/01/22 12:14 Glucagon (Glucagon For Inj 1 Mg Vial) 1 mg IM UD PRN; Protocol PRN Reason: Hypoglycemia Protocol Stop: 06/01/22 12:14 Glucose (Glucose 40% Gel 15 Gm Tube) 15 - 30 gm PO UD PRN; Protocol PRN Reason: Hypoglycemia Protocol Stop: 06/01/22 12:14 Glucose (Glucose 10 Tab/Tube) 4 - 8 tab PO UD PRN; Protocol PRN Reason: Hypoglycemia Protocol Stop: 06/01/22 12:14 Heparin Sodium (Porcine) (Heparin Sod 5,000 Unit/0.5 Ml Vial) 5,000 units SQ Q8 [facility] Stop: 05/30/22 21:59 Last Admin: 05/03/22 13:20 Dose: 5,000 units Hydralazine HCl (Hydralazine Hcl 20 Mg/Ml Vial) 5 mg IV Q4H PRN PRN Reason: systolic bp > 160 Stop: 05/25/22 16:43 Last Admin: 04/30/22 08:16 Dose: 5 mg Hydralazine HCl (Hydralazine Tab 50 Mg Tab) 50 mg PO TID [facility] Stop: 05/30/22 08:59 Last Admin: 05/03/22 13:20 Dose: 50 mg Promethazine HCl 12.5 mg/ (Sodium Chloride) 50.5 mls @ 202 mls/hr IV Q6H PRN PRN Reason: Nausea And Vomiting Stop: 05/24/22 21:16 Metronidazole (Flagyl) 500 mg in 100 mls @ 100 mls/hr IV Q8H [facility] Stop: 05/05/22 14:44 Last Admin: 05/03/22 13:19 Dose: 100 mls/hr Lorazepam 0.5 mg/ Syringe 0.5 mls @ 2 mls/min IV Q4H PRN PRN Reason: Anxiety Stop: 05/27/22 23:51 Cefepime HCl 2,000 mg/ Syringe 20 mls @ 5 mls/min IV Q12H [facility] Stop: 05/07/22 04:59 Last Admin: 05/03/22 13:19 Dose: 5 mls/min Dextrose (D10w) 1,000 mls @ 0 mls/hr IV .Q0M PRN PRN Reason: protocol (see label comments) Stop: 06/01/22 15:59 Amino Acids 1,784 ml/ (Nutrition (Parenteral)) 1,784 mls @ 74 mls/hr IV .Q24H [facility]; Protocol Stop: 05/03/22 15:59 Last Admin: 05/02/22 16:17 Dose: 74 mls/hr Amino Acids 2,142 ml/ (Nutrition (Parenteral)) 2,142 mls @ 89 mls/hr IV .Q24H [facility]; Protocol Stop: 05/04/22 15:59 Insulin Aspart (Insulin Aspart Per Unit) 0 units SC Q6 [facility] Stop: 06/02/22 00:00 Last Admin: 05/03/22 13:18 Dose: 1 units Insulin Glargine (Lantus Per Unit Charge) [facility] [place] [place] Stop: 06/01/22 12:29 Last Admin: 05/03/22 08:44 Dose: 15 units Lisinopril (Lisinopril 40 Mg Tab) 40 mg PO QAM [facility] Stop: 05/28/22 14:44 Last Admin: 05/03/22 08:11 Dose: 40 mg Loperamide HCl (Loperamide Hcl 2 Mg Cap) 2 mg PO Q6 PRN PRN Reason: diarrhea Stop: 05/30/22 13:09 Last Admin: 05/01/22 13:56 Dose: 2 mg Melatonin (Melatonin 3 Mg Tab) 3 mg PO HS PRN PRN Reason: Sleep Stop: 05/28/22 21:31 Last Admin: 04/29/22 22:09 Dose: 3 mg Miscellaneous (Carbohydrates For Hypoglycemia ) 15 - 30 gm PO UD PRN PRN Reason: Hypoglycemia Treatment Stop: 06/01/22 12:14 Miscellaneous (Stop Clinolipid) 1 each N/A Q24H [facility] Stop: 06/01/22 21:59 Last Admin: 05/02/22 22:22 Dose: 1 each Miscellaneous Information (Tpn/Ppn Consult Pharmacy) 1 each N/A UD PRN PRN Reason: Consult Stop: 06/01/22 12:59 Potassium Phosphate (Pot Phosphate Monobasic W/ Sod Tab) 1 tab PO QID [facility] Stop: 05/28/22 08:59 Last Admin: 05/03/22 12:11 Dose: 1 tab Activity: As commented below Activity Comment: OOB ad adolfo Non-emergency contact: Primary Care Provider and Surgeon Call non-emergency contact if: you have any medication questions and your symptoms worsen Follow-up/Referrals: Jerome Schultz, [Primary Care Provider] - Diet: Full liquid and Lactose Intolerant Addtl Attending Provider Instructions: You were admitted with infection of the gallbladder caused by a blocked stone. You were given antibiotics and IV hydration. GI and surgery saw you and you had an ERCP with GI that removed part of the gallbladder duct to help release the stone. You developed pancreatitis that did not get better and continued to worsen, developing into what is called necrotizing pancreatitis. Surgery had planned to remove your gallbladder while you were in the hospital but because your pancreatitis was getting worse, there was a decision to transfer you to [facility] in [place], [place] for other surgical and interventional services like intereventional radiology that could better care for potential complications of necrotizing pancreatitis. [place] were [place] [facility] Pending Studies at Discharge: No Stand-Alone Forms: My [facility] [address] Skilled Items Patient informed of condition?: Yes DNR: No Discharge Level of Care: Other Communicable Disease: No Discharge Prognosis: Stable Lines: Peripheral IV and Mid-Line Urinary Catheter: No Medications and DC Order Prescriptions: Continued metoprolol succinate 50 mg tablet extended release 24 hr 50 mg PO QAM aspirin 81 mg tablet,delayed release (DR/EC) 81 mg PO QAM lisinopril 40 mg tablet 40 mg PO QAM cyclobenzaprine 10 mg Tablet 10 mg PO TID Discharge Orders: Discharge Order (Routine); Ordered 05/03/22 Ordered By: Jason Bah/Other Patient Handouts: Pancreatitis Acute Dc Admission Data Admit Date/Time: 04/24/22 21:16 Attending Provider: Jason Maurer Admit Provider: Keyur Jones Primary Care Provider: Jerome Schultz Other Providers: Keyur Jones ; Maximo Jett ; Jason Mcduffie ; Brittany Salguero ; Marifer Colón ; Stacey Prado ; Marielos Horn ; Moy Salgado ; Olivia De La Cruz ; Brandon Edwards ; Carlie Chilel ; Jessica Matamoros ; Samson Carrillo ; Beverley Neville ; Jaclyn Calle ; Liana Cast ; Aicha Casiano ; Mike Hernández ; Slim Rendon ; Lucien Ontiveros ; Ifrah Torrez ; Elliott Brewster ; Adam Solomon Other Interventions: Discharge Summary Assessment (RN) Last Done: 05/03/22 14:08
[2022-05-03] MEDS ORDERED: PERIPHERAL TPN IV SCH (16:00)
[2022-05-03] MEDS ORDERED: D5W IV SCH (16:00)
[2022-05-03] MEDS ORDERED: AMINO ACIDS 4.25% IV SCH (16:00)
[2022-05-03] MEDS ORDERED: CLINOLIPID 20% IV FAT EMULSION 250 ML IV SCH (16:00)
[2022-05-03] MEDS ORDERED: INSULIN ASPART PER UNIT SC SCH (21:00)
--- NOTE | 2022-05-12 06:41 | Coding Query ---
CODING QUERY To promote full compliance with coding requirements relating to patient care, provider participation is requested in all cases of hydraulic plumber uncertainty. Please assist us with the question(s) below: Coding Question(s): Pt admitted with choledocholithiasis and cholangitis. ERCP done with stents to pancreatic and bile ducts. Seeking to clarify if obstruction of the bile duct was present/treated during this IP stay. Please check below . Thanks for your help! [facility] Physician's Response(s): xxx The common bile duct was obstructed , present on admission The common bile duct was NOT obstructed Cannot clinically determine if the bile duct was obstructed Other: please document: Principal Diagnosis: "that condition established after study, to be chiefly responsible for occasioning the admission of the patient to the hospital for care." Co-Existing Principal Diagnosis: "when two or more diagnoses equally meet the criteria for principal diagnosis as determined by the circumstances of admission, diagnostic work up, and/or therapy provided, and the Alphabetic Index, Tabular List, or another coding guideline does not provide sequencing direction, any one of the diagnoses may be sequenced first." "When the physician has documented what appears to be a current diagnosis in the body of the record, but has not included the diagnosis in the final diagnostic statement, the physician should be asked whether the diagnosis should be added." (Source Coding Clinic 2 QTR90. p3-4) ALVARO
== END 2022-05-03 19:41 | disposition short-term general hospital (02) | DRG 438 ==
LOC: ED 15:51 → 3W 21:16 → SUATTDRO 21:16 → 3W 22:18 → 2W 04-27 22:59

== ENCOUNTER 2022-08-09 15:49 | Inpatient (IN) ==
--- NOTE | 2022-08-09 16:17 | Emergency Department Note ---
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 Family noticed that the PERC drain came out at some point today. Patient has no complaints. Denies any headache or change in vision. No chest pain or shortness of breath. No nausea, vomiting, or diarrhea. No dysuria, urgency, or frequency. No other exacerbating or remitting factors PAST MEDICAL HISTORY:See Below PAST SURGICAL HISTORY:See Below FAMILY HISTORY:See Below SOCIAL HISTORY:See Below HOME MEDICATIONS:See Below ALLERGIES:See Below VITALS:See Below PHYSICAL EXAMINATION: GENERAL: Sitting up in bed, alert, well appearing, well nourished, no distress, non-toxic EYE EXAM: normal conjunctiva. PERRL and EOM's grossly intact. OROPHARYNX: no exudate, no erythema, lips, buccal mucosa, and tongue normal and mucous membranes are moist NECK: supple, no nuchal rigidity, no adenopathy, non-tender LUNGS: Clear to auscultation. Normal chest wall mechanics HEART: no murmurs, S1 normal and S2 normal ABDOMEN: abdomen soft, non-tender, normo-active bowel sounds, no masses, no rebound or guarding. Drain over the left mid upper abdomen completely removed. No active bleeding or drainage UPPER EXTREMITIES: upper extremities are grossly normal. LOWER EXTREMITIES: No pitting edema. NEURO EXAM: Normal sensorium, cranial nerves II-XII grossly intact, normal speech, no gross weakness of arms, no gross weakness of legs. MEDICAL DECISION MAKING: Patient is a 62-year-old male with extensive past medical history who presents the ER following accidentally pulling the IR drain out. External records were reviewed. Labs show no significant leukocytosis. Mild anemia 10. BMP shows a mild hypokalemia 3.3. LFTs bilirubin was unremarkable. Lipase was normal. COVID was negative. I discussed with [facility] interventional radiology on several separate occasions and they requested a CT abdomen pelvis which was then transferred down to them. Following reviewing this several hours later they recommended transfer to [facility]. I discussed with Dr. Holly and patient was excepted and will be transferred tomorrow. Following this I discussed with Dr. Cavazos approved for further evaluation work-up and admission. OBSERVATION: The patient was placed in observation status at 4:[address] and ev aluation by interventional radiology. During the time in observation, the patient was frequently reassessed and received IV fluids. On Final reassessment the patient was accepted to [facility] in transfer but will be admitted here until there is a bed open tomorrow and he will be transferred down for IR treatment and the patient will be 2200 at this time. A total observation time of 7hrs. 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 Will defer to the hospitalist for anticoagulation treatment especially in light of previous bleed. Triage Nursing notes reviewed. Limited review of prior medical records performed Vital Signs: reviewed and remarkable for tachy Differential diagnosis: Differential diagnoses includes but is not limited to gastritis, peptic ulcer disease, GERD, gallbladder disease, pancreatitis, small bowel obstruction, appendicitis, diverticulitis, hernia, urinary tract infection, torsion, perfo ration, trauma, infectious. ER treatment provided: See below Diagnostics interpreted by me include EKG and cardiac monitoring as listed below: -Cardiac Monitoring: An order was placed for continuous cardiac monitoring. The monitor shows a rate of 90 with sinus rhythm. -ECG: none -Laboratory studies:Interpreted by me as stated above in MDM and shown below. Imaging studies: Xrays: As interpreted by me:none CTs show: none Consultation(s): Discussed with [facility] interventional radiology, call center, hospitalist as well as our own hospitalist here and care managers in regards to presentation work-up treatment and further intervention Procedures:none Critical Care: None Past Med/Surg History Medical History Cholangitis Hypertension Surgical History History of back surgery Social History Smoking Status: Unknown if ever smoked Second Hand Exposure: No; Hx Alcohol Use: Yes Hx Substance Use: No Preferred Language: Yakut Communication Ability: Effective Trash Hauler Required: No Beliefs That Will Affect Care: None marital status: Single Current Living Situation: Alone current occupational status: retired How many Children do You have: 0 Feels Safe at Home: Yes Assistive Devices: None Allergies Allergies Allergy/AdvReac Type Severity Reaction Status Date / Time amoxicillin [From Augmentin] Allergy angioedema Verified 06/26/22 20:25 clavulanic acid Allergy angioedema Verified 06/26/22 20:25 [From Augmentin] Home Meds Home Medications Medication Instructions Recorded Confirmed acetaminophen 325 mg tablet 650 mg PO QID PRN Pain 08/09/22 08/09/22 (Tylenol) cyclobenzaprine 10 mg tablet 10 mg PO TID PRN Muscle Pain 08/09/22 08/09/22 metoprolol succinate 50 mg 50 mg PO DAILY 08/09/22 08/09/22 tablet,extended release 24 hr olanzapine 2.5 mg tablet 2.5 mg PO HS 08/09/22 08/09/22 Results & Data (ED) Vital Signs Vital Signs - 24 hr 08/09/22 15:51 08/09/22 18:19 08/09/22 18:41 Temperature 36.4 C L Temperature Source Temporal Artery Scan Pulse Rate 109 H 89 Pulse Rate [Right Finger] 87 Pulse Rhythm [Right Finger] Regular Pulse Strength [Right Finger] Normal Respiratory Rate 19 16 18 Respiratory Effort / Characteristics Non-Labored Spontaneous Non-Labored Spontaneous Respiratory Depth Normal Normal Blood Pressure 134/96 Blood Pressure [Right Arm] 157/98 H Blood Pressure Mean 108 Blood Pressure Mean [Right Arm] 117 Pulse Oximetry 96 98 98 Oxygen Delivery Method Room Air Room Air Room Air Sepsis Recent Fever Within 48 Hours No Sepsis New/Unexplained Change in Mental Status N/A Sepsis Action Taken by Nursing No Action Required 08/09/22 20:00 Temperature Temperature Source Pulse Rate Pulse Rate [Right Finger] 95 H Pulse Rhythm [Right Finger] Pulse Strength [Right Finger] Respiratory Rate 20 Respiratory Effort / Characteristics Respiratory Depth Blood Pressure Blood Pressure [Right Arm] 149/103 H Blood Pressure Mean Blood Pressure Mean [Right Arm] 118 Pulse Oximetry 97 Oxygen Delivery Method Room Air Sepsis Recent Fever Within 48 Hours Sepsis New/Unexplained Change in Mental Status Sepsis Action Taken by Nursing Laboratory Data 08/09/22 17:18 08/09/22 17:18 Lab Results 0208/09/22 08/09/22 Range/Units 17:18 17:18 18:14 WBC 7.99 (4.8-10.8) K/ul RBC 3.57 L (4.70-6.10) M/uL Hgb 10.4 L (14.0-18.0) g/dl Hct 32.5 L (42.0-52.0) % MCV 91.0 (80.0-100.0) fL MCH 29.1 (25.0-34.0) pg MCHC 32.0 (32.0-36.0) g/dL RDW Std Deviation 52.8 H (36.4-46.3) fL RDW Coeff of Fred 15.8 H (11.5-14.5) % Plt Count 479 H (130-400) K/uL MPV 12.3 (9.4-12.4) fL Immature Gran % (Auto) 1.5 % Neut % (Auto) 73.7 % Lymph % (Auto) 17.6 % Marin % (Auto) 5.8 % Eos % (Auto) 0.6 % Baso % (Auto) 0.8 % Neut # (Auto) 5.89 (1.40-6.50) K/uL Lymph # (Auto) 1.41 (1.2-3.4) K/uL Marin # (Auto) 0.46 (0.11-0.59) K/uL Eos # (Auto) 0.05 (0-0.50) K/uL Baso # (Auto) 0.06 (0-0.2) K/uL Immature Gran # (Auto) 0.12 (0.01-0.20) K/uL Sodium 137 (136-145) mmol/L Potassium 3.3 L (3.5-5.1) mmol/L Chloride 94 L (98-107) mmol/L Carbon Dioxide 36 H (21-32) mmol/L Anion Gap 7 (3-11) BUN 13 (6-23) mg/dl Creatinine 0.85 (0.6-1.4) mg/dl Est Cr Clr Drug Dosing Not Reportable Est GFR ( Amer) 109.0 ml/min Est GFR (Non-Af Amer) 94.0 ml/min BUN/Creatinine Ratio 15.3 (10-20) Glucose 111 H (70-99(Fasting)) mg/dl Calcium 8.7 (8.5-10.1) mg/dl Total Bilirubin 0.5 (0.2-1.0) mg/dl AST 15 (13-39) U/L ALT 7 (7-52) U/L Alkaline Phosphatase 101 (34-104) U/L Total Protein 8.2 (6.0-8.3) gm/dl Albumin 2.8 L (3.4-5.0) gm/dl Globulin 5.4 H (2.5-4.0) gm/dl Albumin/Globulin Ratio 0.5 L (0.9-2) Lipase 17 (11-82) U/L SARS-CoV-2, RNA, NAAT NEGATIVE (NEGATIVE) Administered Medications Discontinued Medications Ioversol (Optiray 320 500ml) 116 ml IV ONCE ONE Stop: 08/09/22 19:59 Last Admin: 08/09/22 19:59 Dose: 116 ml Documented By: EDK Imaging Data Radiologist's Impression: Venogram CT 08/09/22 19:11 CT abdomen pelvis veno w con HISTORY: 62 years-old Male portal venous phase per IR acute generalized abdominal pain patient with intra-abdominal drainage catheter COMPARISON: 07/23/2022, 05/19/2022 TECHNIQUE: CT abdomen and pelvis was obtained following the intravenous administration of 116 mL Optiray 320. A dose lowering technique was used consistent with the principals of VAN. FINDINGS: Stable moderate sized left pleural effusion with left basilar atelectasis. The right lung base is clear. The imaged inferior cardiac chambers are unremarkable. No gross pneumoperitoneum or pneumatosis. Unremarkable spleen, and adrenal glands. Moderately distended gallbladder. Mild intrahepatic biliary ductal dilation is new from prior. A common bile duct stent appears to be in satisfactory positioning. Unremarkable liver. Patency of the hepatic veins. Narrowing at the portal splenic confluence.. 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 The superior mesenteric vein is not well-visualized may also be occluded. The superior mesenteric vein was patent on the 05/02/2022 study. Clips within the duodenum are noted. Thick-walled air and fluid-filled peripherally enhancing multiloculated complex collections within the retroperitoneum redemonstrated. Collection on image 144 measures 3.7 x 9.7 cm is contiguous with the gastric drainage device, previously measuring approximately 13.5 x 5.0 cm. This is contiguous with a more medial 4.2 x 4.9 cm collection on previously 5.7 x 6.2 cm. Status post removal of the percutaneous drainage catheter. A pigtail catheter is noted on the left lateral aspect of the abdomen and external to the patient on image 197 series 3. Indeterminate metallic density 2.07 mm structure is noted within the complex collection within the left upper quadrant abdomen 20 series 3. Acute pancreatic necrosis with no normal pancreatic parenchyma identified. Findings have improved from the prior study. Wall thickening of the stomach and duodenum again noted. Trace ascites. Prostamegaly. Urinary bladder wall thickening with partial distention. No hydronephrosis. Indeterminate 9 mm hypodense focus of the superior pole right kidney. Stable appearance of the indeterminate intermediate density lesions of the left kidney measuring up to 1.6 cm in the superior pole and 1.2 cm within the interpolar distribution. Atherosclerosis of the aorta. No lymphadenopathy. Retroperitoneal lymphadenopathy. Large and small bowel air-fluid levels. Wall thickening of the splenic flexure and mid transverse colon. Questioned fistulous tract between the organized fluid collection in the mid transverse colon on image 149 and also on image 175. Several small bowel loops are dilated measuring up to 3.2 cm. No discrete transition point identified. No acute fracture identified. IMPRESSION: 1. Necrotizing pancreatitis with combination of parenchymal and peripancreatic necrosis redemonstrated. Multiloculated areas of walled off necrosis have decreased in size from the 07/23/2022 study as above. 2. Status post removal of the percutaneous pigtail drainage catheter which now appears to be external to the patient. 3. Satisfactory positioning of the common bile duct stent with mild intrahepatic and extrahepatic biliary ductal dilation. 4. Large and small bowel air-fluid levels with mildly dilated loops of small bowel suggestive of an ileus. A partial small bowel obstruction could have a similar appearance. 5. Questioned sinus tracts/fistulous connection between the transverse colon and areas of walled off necrosis. Attention at follow-up recommended. 6. Stable moderate left pleural effusion with left basilar atelectasis. 7. 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 8. Additional findings as above. ACT 112: Negative or not required by law. The above report was generated using voice recognition software. It may contain grammatical, syntax or spelling errors. Electronically signed by: Finn Lagos M.D. 08/09/2022 8:40 PM Discharge Plan Visit Data Chief Complaint: Wound Stated Complaint: WOUND - DRAIN NOT FLUSHING WITH SALINE ED Provider: Naldo Sun Discharge Problem: Pancreatic necrosis, Necrotizing pancreatitis, Pleural effusion, Drainage from surgical wound Forms Stand Alone Forms: My [facility] Prescriptions Prescriptions: No Action cyclobenzaprine 10 mg tablet 10 mg PO TID PRN (Reason: Muscle Pain) acetaminophen [Tylenol] 325 mg Tablet 650 mg PO QID PRN (Reason: Pain) metoprolol succinate 50 mg tablet extended release 24 hr 50 mg PO DAILY olanzapine 2.5 mg tablet 2.5 mg PO HS Referrals Referrals: Jerome Schultz, [Primary Care Provider] -
[2022-08-09 17:56] LABS: Alanine Aminotransferase 7 U/L (7-52); Albumin Globulin Ratio 0.5 (0.9-2); Albumin Level 2.8 gm/dl (3.4-5.0); Alkaline Phosphatase 101 U/L (34-104); Anion Gap 7 (3-11); Aspartate Aminotransferase 15 U/L (13-39); BUN Creatinine Ratio 15.3 (10-20); Bilirubin,Total 0.5 mg/dl (0.2-1.0); Blood Urea Nitrogen 13 mg/dl (6-23); Calcium 8.7 mg/dl (8.5-10.1); Carbon Dioxide 36 mmol/L (21-32); Chloride 94 mmol/L (98-107); Globulin 5.4 gm/dl (2.5-4.0); Glucose 111 mg/dl (70-99(Fasting)); Lipase 17 U/L (11-82); Potassium 3.3 mmol/L (3.5-5.1); Sodium 137 mmol/L (136-145); Total Protein 8.2 gm/dl (6.0-8.3)
[2022-08-09 18:04] LABS: Basophils # (auto) 0.06 K/uL (0-0.2); Basophils % (auto) 0.8 %; Eosinophils # (auto) 0.05 K/uL (0-0.50); Eosinophils % (auto) 0.6 %; Hematocrit (blood only) 32.5 % (42.0-52.0); Hemoglobin 10.4 g/dl (14.0-18.0); Immature Granulocytes # (auto) 0.12 K/uL (0.01-0.20); Immature Granulocytes % (auto) 1.5 %; Lymphocytes # (auto) 1.41 K/uL (1.2-3.4); Lymphocytes % (auto) 17.6 %; Mean Corpuscular Hemoglobin 29.1 pg (25.0-34.0); Mean Platelet Volume 12.3 fL (9.4-12.4); Monocytes # (auto) 0.46 K/uL (0.11-0.59); Monocytes % (auto) 5.8 %; Neutrophils # (auto) 5.89 K/uL (1.40-6.50); Neutrophils % (auto) 73.7 %; Platelet Count 479 K/uL (130-400); RDW Coefficient of Variation 15.8 % (11.5-14.5); RDW Standard Deviation 52.8 fL (36.4-46.3); Red Blood Count 3.57 M/uL (4.70-6.10); White Blood Count 7.99 K/ul (4.8-10.8)
[2022-08-09] MEDS ORDERED: OPTIRAY 320 500ml IV ONE (19:58)
--- NOTE | 2022-08-09 20:42 | CT Scan Report ---
CT abdomen pelvis veno w con HISTORY: 62 years-old Male portal venous phase per IR acute generalized abdominal pain patient with intra-abdominal drainage catheter COMPARISON: 07/23/2022, 05/19/2022 TECHNIQUE: CT abdomen and pelvis was obtained following the intravenous administration of 116 mL Opti ray 320. A dose lowering technique was used consistent with the principals of VAN. FINDINGS: Stable moderate sized left pleural effusion with left basilar atelectasis. The right lung base is guerrero ar. The imaged inferior cardiac chambers are unremarkable. No gross pneumoperitoneum or pneumatosis. Unremarkable spleen, and adrenal glands. Moderately distended gallbladder. Mild intrahepatic biliary ductal dilation is new from prior. A common bile duct stent appears to be in satisfactory positioning . Unremarkable liver. Patency of the hepatic veins. Narrowing at the portal splenic confluence.. Ther e is apparent complete occlusion of the splenic vein. The superior mesenteric vein is not well-visual ized may also be occluded. The superior mesenteric vein was patent on the 05/02/2022 study. Clips wit hin the duodenum are noted. Thick-walled air and fluid-filled peripherally enhancing multiloculated c omplex collections within the retroperitoneum redemonstrated. Collection on image 144 measures 3.7 x 9.7 cm is contiguous with the gastric drainage device, previously measuring approximately 13.5 x 5.0 cm. This is contiguous with a more medial 4.2 x 4.9 cm collection on previously 5.7 x 6.2 cm. Status post removal of the percutaneous drainage catheter. A pigtail catheter is noted on the left lateral a spect of the abdomen and external to the patient on image 197 series 3. Indeterminate metallic densit y 2.07 mm structure is noted within the complex collection within the left upper quadrant abdomen 20 series 3. Acute pancreatic necrosis with no normal pancreatic parenchyma identified. Findings have im proved from the prior study. Wall thickening of the stomach and duodenum again noted. Trace ascites. Prostamegaly. Urinary bladder wall thickening with partial distention. No hydronephrosis. Indeterminate 9 mm hypodense focus of th e superior pole right kidney. Stable appearance of the indeterminate intermediate density lesions of the left kidney measuring up to 1.6 cm in the superior pole and 1.2 cm within the interpolar distribu tion. Atherosclerosis of the aorta. No lymphadenopathy. Retroperitoneal lymphadenopathy. Large and sm all bowel air-fluid levels. Wall thickening of the splenic flexure and mid transverse colon. Question ed fistulous tract between the organized fluid collection in the mid transverse colon on image 149 an d also on image 175. Several small bowel loops are dilated measuring up to 3.2 cm. No discrete transi tion point identified. No acute fracture identified. IMPRESSION: 1. Necrotizing pancreatitis with combination of parenchymal and peripancreatic necrosis redemonstrate d. Multiloculated areas of walled off necrosis have decreased in size from the 07/23/2022 study as abo ve. 2. Status post removal of the percutaneous pigtail drainage catheter which now appears to be external to the patient. 3. Satisfactory positioning of the common bile duct stent with mild intrahepatic and extrahepatic tarik iary ductal dilation. 4. Large and small bowel air-fluid levels with mildly dilated loops of small bowel suggestive of an i leus. A partial small bowel obstruction could have a similar appearance. 5. Questioned sinus tracts/fistulous connection between the transverse colon and areas of walled off necrosis. Attention at follow-up recommended. 6. Stable moderate left pleural effusion with left basilar atelectasis. 7. 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 8. Additional findings as above. ACT 112: Negative or not required by law. The above report was generated using voice recognition software. It may contain grammatical, syntax o r spelling errors. Electronically signed by: Finn Lagos M.D. 08/09/2022 8:40 PM
[2022-08-09] MEDS ORDERED: SODIUM CHLORIDE 0.9% 500 ML IV ONE (21:55)
[2022-08-10] MEDS ORDERED: POTASSIUM CHLORIDE 20 MEQ/15 ML UDC PO STA (00:03)
[2022-08-10] MEDS ORDERED: CYCLOBENZAPRINE HCL 10 MG TAB PO PRN (00:11)
[2022-08-10] MEDS ORDERED: ACETAMINOPHEN 325 MG TAB PO PRN (00:11)
[2022-08-10] MEDS ORDERED: NITROGLYCERIN SL 0.4 MG/TAB TAB SL PRN (00:11)
[2022-08-10] MEDS: SODIUM CHLORIDE 0.9% 1000ML 1,000 ML IV SCH ×2 (00:35→14:00)
[2022-08-10] MEDS ORDERED: POTASSIUM CHLORIDE CRTAB 20 MEQ TABCR PO STA (00:41)
--- NOTE | 2022-08-10 03:06 | History and Physical Report ---
DATE OF ADMISSION: 08/09/2022. CHIEF COMPLAINT: Abdominal drain came out, increased drainage. HISTORY OF PRESENT ILLNESS: This is a 62-year-old male with past medical history significant for prediabetes, acute necrotizing pancreatitis, pancreatic necrosis, history of bilateral pleural effusions, hypertension, splenic vein thrombosis, superior mesenteric vein thrombosis, moderate malnutrition, history of BEN, right kidney stone, degenerative disk disease, history of septic shock, hemorrhagic shock, history of blood transfusion. Presents with abdominal gabby cath coming out. The patient has significant recent history. As per the recent discharge summary done on 08/01/2022 by Ani," he was admitted from 05/03/2022 to 05/13/2022 with necrotizing pancreatitis, status post ERCP with CBD stent placed, PD stent for cholangitis and CBD stricture on 04/25/2022 at [facility] and transferred to [facility] on 05/03/2022 due to worsening necrotic pancreatitis. During that admission, focus was pain management, malnutrition, and he had multiple CAT scans during that admission, which showed developed walled-of necrosis and was discharged on 05/13/2022 with Eliquis due to SMV thrombosis. From 05/19/2022 to 06/20/2022, he was readmitted to [facility] due to concern for septic/ hemorrhagic shock. During this admission, the patient underwent IR-guided drain placement for peripancreatic collection and paracentesis, which was consistent with pancreatic ascites and positive for secondary peritonitis. Cultures grew susceptible Enterococcus and the patient was placed on vancomycin given ampicillin allergy. Aspirin and Eliquis were held during that hospitalization due to hemorrhagic pancreatitis. That hospitalization was also complicated with COVID, for which the patient was treated with remdesivir and the patient also received 2 units of PRBC transfusion as admitting hemoglobin was less than 7 and he was discharged without anticoagulation at that time and again was readmitted on 06/27/2022 and discharged on 07/05/2022. At that time, CT scan was showing new splenic infarcts and was started on heparin drip. The patient underwent EGD with endoscopic ultrasound on 06/27/2022 with placement of AXIOS stent and double pigtail plastic stents. During this admission, he completed a full antibiotic course by ID for enterococcal peritonitis, with vancomycin with subsequent PICC removal. However, due to concern for necrotizing infection, was transitioned to oral Cipro and Flagyl. GI completed repeat EGD endoscopic ultrasound, necrosectomy on 07/04/2022 and the patient improved clinically after second necrosectomy and he completed his antibiotic course with Cipro and Flagyl on 07/12/2022. On 07/21/2022, EGD was done with endoscopic necrosectomy, was performed via existing 20 mm AXIOS cystogastrostomy stent with a replacement of pigtail plastic stent via existing AXIOS stent.Again the patient presented to [facility] ED on 07/23/2022 with dizziness and multiple episodes of near syncope and in one of the syncope episodes, he pulled the drain out a little and was found to have tachycardia, hypotension, hemoglobin of 5, and had a hematemesis episode, and was given 4 units of PRBCs, 2.5 liters of normal saline, Kcentra, and a dose of TXA. Also was given vancomycin, Flagyl, cefepime and started on Levophed for persistent hypotension and was transferred to [place] again. At [place] [place], again EGD was done on 07/24/2022, which showed the AXIOS stent eroding the stomach wall and likely the source of GI bleed. Also, repeat necrosectomy was done and the recommendation was to stop acid- reducing agents to keep AXIOS stent patent, so PPI was stopped. He did not have any more additional bleeding, so the patient's Xarelto for SMV thrombosis was resumed on 07/25/2022 and later on the evening on 07/26/2022, the patient went to bathroom for a bowel movement, felt dizzy followed by syncopal episode. Rapid response was called and was found hypotensive and i-STAT showed hypokalemia of 2.7, hemoglobin was 7.3, trending down from 8.3 and after a liter of fluids and also norepinephrine was given and 1 unit of PRBC transfusion was given and imaging studies showed active extravasation from the splenic artery. The patient underwent IR embolization of splenic artery and hemoglobin was stable. Xarelto was discontinued on 07/26/2022 after one dose due to bleeding episode. After that, he was stable. The patient was started on Zyprexa, as the patient has severe distaste for food, to assist to improve his nutrition. Blood cultures were growing bacteroides and was treated with metronidazole with end date of 08/04/2022, and today now again, he comes to the hospital because the drain from the abdomen came out. He is living at his brother's place. Last few days, cath was not draining much, but since yesterday and today, again drain picked up, he was draining about 300 mL every 4 hours. The ER called [facility] [place] and discussed with IR and also imaging studies were sent to [place]. Received fluids. Interventional radiology at [facility] recommended transfer to [facility] and hospitalist accepted the patient in for transfer, but they do not have beds and the patient will most likely transfer tomorrow. Currently, resting comfortably and hemodynamically stable. Denies any headache, no dizziness, no blurred visions, no earache, no runny nose, no sore throat, no cough. Appetite is not that great. No difficulty swallowing. No chest pain, no shortness of breath, no nausea. Normal bowel and bladder movements. No swelling in the legs. ALLERGIES: AUGMENTIN. PAST MEDICAL HISTORY: As mentioned above. PAST SURGICAL HISTORY: Colonoscopy, EGDs, EGD with endoscopic ultrasound, ERCP, IR embolization, lumbar spine disk surgery. MEDICATIONS: Currently on Tylenol 650 mg p.o. q.i.d. p.r.n., cyclobenzaprine 10 mg p.o. t.i.d. p.r.n., metoprolol succinate 50 mg p.o. daily, olanzapine 2.5 mg p.o. at bedtime. FAMILY HISTORY: Significant for brother has hypertension; mother has hypertension and stroke; father has hypertension. SOCIAL HISTORY: Single, currently living with his brother. No smoking. Social drinking. No drug use. REVIEW OF SYSTEMS: As per HPI. Rest of the review of systems is negative. PHYSICAL EXAMINATION: GENERAL: The patient is thin and frail, not in acute distress. VITAL SIGNS: Temperature 36.4, pulse 88, respiratory rate 19, blood pressure 155/100, oxygen 98% on room air. HEENT: Pupils equal, round and reactive to light. Oral mucosa dry. NECK: No JVD. No neck masses. CARDIOVASCULAR: S1 and S2 heard. Regular rate and rhythm. No murmur, no gallop. RESPIRATORY SYSTEM: Normal AP diameter. No accessory muscle use. No wheezing, no crackles. ABDOMEN: Soft, bowel sounds present. Drain site, no obvious drainage seen at cath site.No distention, no guarding, no rigidity, no tenderness. CENTRAL NERVOUS SYSTEM: Cranial nerves II-XII grossly intact, nonfocal. EXTREMITIES: No edema, no erythema. LABORATORY DATA: WBC 7.9, hemoglobin 10.4, hematocrit 32.5, platelets 479. Sodium 137, potassium 3.3, chloride 94, bicarbonate 36, BUN 13, creatinine 0.8, serum glucose 111, calcium 8.7, total bilirubin 0.5, AST 15, ALT 7, alkaline phosphatase 101. Lipase 17. SARS-CoV-2 rapid test negative. IMAGING DATA: CT venogram, necrotizing pancreatitis with combination of parenchymal and peripancreatic necrosis redemonstrated, multiloculated areas of walled-off necrosis of decrease in size from the 07/23/2022 study. Status post removal of the percutaneous pigtail drainage catheter, which now appears to be external to the patient. Satisfactory position of the common bile duct stent with mild intrahepatic and extrahepatic biliary ductal dilatation. Large and small bowel air fluid levels with mildly dilated loops of small bowel, suggestive of an ileus. Question sinus tract fistulous connection between the transverse colon and areas of walled-off necrosis. Attention and followup recommended. Stable moderate left pleural effusion with left basilar atelectasis. Superior mesenteric venous occlusion. ASSESSMENT AND PLAN: This is a 62-year-old male with recent complicated hx of necrotizing pancreatitis as mentioned in h and p , status post pigtail catheter, who presents with catheter coming out. 1. Acute necrotizing pancreatitis: The patient has a pigtail catheter. Multiple admissions in [place]. Complications with pancreatic ascites and positive for secondary peritonitis. Cultures growing Enterococcus, status post antibiotic treatment, status post septic hemorrhagic shock, treated with PRBC transfusions. Anticoagulation held because of the epsiodes of hemorrhagic shock and bleeding from AXOIS stent site and bleeding from splenic artery as mentioned in h and p. . Currently comes with pigtail catheter coming out and he was accepted in transfer to [place], waiting for the bed. Will continue to monitor him and keep him n.p.o. for now. Gentle fluids. Consult GI evaluation in the hospital. Necrotizing pancreatitis seems to be decreased from the previous CAT scan and there is bile duct stent and intrahepatic and extrahepatic common bile duct is stable. The patient has some ileus. . Stable moderate left pleural effusion. Will monitor the respiratory status.patinet is worried as cath was draining lot before it came out. CAlled valencia and d/w IR and transfer center increased the priority level. Hopefully will be transferred as soon as possible. 2. Superior mesenteric vein thrombosis: He was started on Eliquis, held because of the bleeding episodes as mentioned above.. Currently, will hold it until further recommendation from [facility] . 3. Hypertension: Continue his metoprolol succinate. 4. Malnutrition: Dietitian followup. 5. Deep venous thrombosis prophylaxis: Sequential compression devices for now. DISPOSITION: Closely monitor in the tele floor. Level 1 full code. Expect transfer to [facility] [place] when bed available. Job ID: [id number] MTDD
[2022-08-10 06:59] LABS: Basophils # (auto) 0.05 K/uL (0-0.2); Basophils % (auto) 0.7 %; Eosinophils # (auto) 0.07 K/uL (0-0.50); Eosinophils % (auto) 0.9 %; Hematocrit (blood only) 26.8 % (42.0-52.0); Hemoglobin 8.5 g/dl (14.0-18.0); Immature Granulocytes # (auto) 0.15 K/uL (0.01-0.20); Mean Corpuscular Hemoglobin 29.1 pg (25.0-34.0); Mean Corpuscular Hgb Conc 31.7 g/dL (32.0-36.0); Mean Corpuscular Volume 91.8 fL (80.0-100.0); Mean Platelet Volume 12.7 fL (9.4-12.4); Monocytes # (auto) 0.69 K/uL (0.11-0.59); Monocytes % (auto) 9.4 %; Neutrophils # (auto) 5.01 K/uL (1.40-6.50); Platelet Count 341 K/uL (130-400); RDW Coefficient of Variation 15.9 % (11.5-14.5); RDW Standard Deviation 51.7 fL (36.4-46.3); Red Blood Count 2.92 M/uL (4.70-6.10); White Blood Count 7.37 K/ul (4.8-10.8)
[2022-08-10 07:18] LABS: Albumin Level 2.1 gm/dl (3.4-5.0); BUN Creatinine Ratio 16.4 (10-20); Bilirubin Direct 0.1 mg/dl (0-0.2); Bilirubin,Total 0.3 mg/dl (0.2-1.0); Calcium 7.7 mg/dl (8.5-10.1); Est GFR (Non-African American) 100.1 ml/min; Magnesium 1.7 mg/dl (1.7-2.4); Potassium 3.6 mmol/L (3.5-5.1); Total Protein 6.3 gm/dl (6.0-8.3)
[2022-08-10] MEDS ORDERED: METOPROLOL SUCC 50MG EXT REL TAB PO SCH (09:00)
--- NOTE | 2022-08-10 11:11 | Communication Note ---
Date of Service: August 10, 2022 Patient awaiting transfer to [facility]. Presented to the ER after his percutaneous drain fell out at home. Patient with an impressive and complicated medical history. (see H&P) from today. Patient was seen and examined in his room. He feels well currently. No abdominal pain. Pending transfer. I discussed with Transfer Center this morning, he is first on the list to get a bed. He may need IR intervention when he gets to [facility] so will keep him NPO for now. With regards to his splenic vein thrombosis. This was diagnosed on a prior admission in [facility]. He was anticoagulated but developed multiple bleeding complications (one hospitalization developed hematemesis related to axios stent erosion into stomach wall, another episode was related to splenic artery bleeding which required IR embolization). Decision was made to not resume his anticoagulation at discharge and to re-address at follow up visit. Patient reports he is not currently anticoagulated and I will defer initiation of anticoagulation at this time since he likely will have an IR procedure shortly and also because if he suffers a life threatening bleed and requires advanced intervention by IR, it is not available here. This was discussed with the patient and he was in agreement to hold off on restarting anticoagulation until he is seen at [facility].
--- NOTE | 2022-08-10 12:37 | Gastrointestinal Consultation ---
Date of Consultation August 10, 2022 Assessment & Plan (1) Necrotizing pancreatitis: Plan nectroziing pancreatitis with many complications including SMV thrombosis and hemorrhage; now pigtail catheter has fallen out recs: --supportive care, IVFs --transfer to [facility] as planned for IR intervention --rest as per primary team Thank you for allowing me to participate in the care of this patient. History of Present Illness Attending Physician: Regino Mcnair MD History of Present Illness 62 yo male with recent hx necrotizing pancreatitis s/p pigtail catheter that fell out awaiting transfer to [facility] for IR. His course has been c/b ascites, peritonitis with enterococcus s/p abx. He was also on AC for thrombosis but held due to hemorrhagic shock and bleeding. Currently he denies pain, n/v, diarrhea or other issues. CBC, CMP reviewed. Allergies Allergy/AdvReac Type Severity Reaction Status Date / Time amoxicillin [From Augmentin] Allergy angioedema Verified 06/26/22 20:25 clavulanic acid Allergy angioedema Verified 06/26/22 20:25 [From Augmentin] Home Medications Medication Instructions Recorded Confirmed Type acetaminophen 325 mg tablet 650 mg PO QID PRN Pain 08/09/22 08/09/22 History (Tylenol) cyclobenzaprine 10 mg tablet 10 mg PO TID PRN Muscle Pain 08/09/22 08/09/22 History metoprolol succinate 50 mg 50 mg PO DAILY 08/09/22 08/09/22 History tablet,extended release 24 hr olanzapine 2.5 mg tablet 2.5 mg PO HS 08/09/22 08/09/22 History Patient History Medical History Cholangitis Hypertension Surgical History History of back surgery Social History Smoking Status: Never smoker Second Hand Exposure: No; Hx Alcohol Use: Yes Alcohol type: beer and wine Hx Substance Use: No Preferred Language: Divehi Communication Ability: Effective Automotive Accessory Installer Required: No Beliefs That Will Affect Care: Baptism Baptism Beliefs: Jew marital status: Single Current Living Situation: Alone current occupational status: retired How many Children do You have: 0 Feels Safe at Home: Yes Assistive Devices: Cane and Walker Review of Systems Constitutional: no fever, no chills and no weight loss Eyes: as per Subjective / HPI Ear, Nose, Mouth, Throat: as per Subjective / HPI Respiratory: no dyspnea and no dyspnea on exertion Cardiovascular: no chest pain and no palpitations Gastrointestinal: as per Subjective / HPI Musculoskeletal: no joint pain and no swelling Integumentary: no rash and no lesions Neurologic: no numbness and no paresthesia Psychiatric: no depression and no anxiety Endocrine: no fatigue Hematologic / Lymphatic: no easy bleeding and no easy bruising Physical Exam Constitutional: WD/WN, vitals as above Eyes: EOM intact bilaterally Neck: normal visual inspection Respiratory: normal respiratory effort, lungs clear to auscultation Cardiovascular: RRR, no murmur, no edema Gastrointestinal (Abdomen): Inspection/Auscultation: abdomen normal to inspection; abdomen not distended Percussion/Palpation: abdomen soft; abdomen nontender and no hepatosplenomegaly Musculoskeletal: Extremities: no cyanosis Gait: normal gait Skin: no rashes, warm and dry Neurologic: moves all extremities Psychiatric: A+Ox3, euthymic affect Results & Data ([facility]) Vital Signs (Past 12 Hours) Vital Signs Temp Pulse Pulse Resp BP BP Pulse Ox 08/10/22 11:02 36.9 C 88 16 152/86 H 98 08/10/22 09:52 94 H 08/10/22 08:04 97 H 08/10/22 07:53 36.6 C 93 H 16 158/104 H 162/96 H 98 08/10/22 03:01 36.4 C L 89 18 147/99 H 96 O2 Del Method 08/10/22 11:02 Room Air 08/10/22 09:52 08/10/22 08:04 08/10/22 07:53 Room Air 08/10/22 03:01 Room Air PG Care Time/CCT Total # of Minutes Spent Total Time Spent with Patient: Total time spent is greater than 50% in coordination of care (as documented) at patient's floor/unit and/or counseling patient: Coding Level of Care Code INP/OBS CONSULT LVL 3, 45 MIN Diagnoses Necrotizing pancreatitis K85.91
--- NOTE | 2022-08-10 17:01 | Hospitalist Progress Note ---
Date of Service August 10, 2022 Assessment & Plan (1) Pancreatic necrosis: Plan: -Complicated GI and Surgical History -Most recently with percutaneous drain to pancreatic necrotic cyst, here due to accidental removal of drain -Pending transfer [place] [facility] [place] -CT venogram shows improved fluid collection (2) Chronic thrombosis of splenic vein: Plan: -Prior history of life threatening bleed while anticoagulated requiring multiple blood transfusion and also splenic artery embolization -Will hold off on resuming anticoagulation while here Plan Pending transfer to [facility] pending bed availability Admission and Anticipated Discharge Date Admission Date: August 09, 2022 Subjective Patient denies abdominal pain. Abdomen feels "full". No fever/chills Currently waiting for transfer to [facility] Physical Exam Physical Exam: sitting in bed, comfortable, thin and cachetic Respiratory: Breathing comfortably on room air, no wheezing/rhonchi/rales Cardiovascular: Regular rate and rhythm, no murmurs/rubs Gastrointestinal (Abdomen): Hypoactive, soft, non tender Musculoskeletal: No edema Neurologic: awake, alert, spontaneously moving extremities Results & Data Results & Data ([facility]) Vital Signs (Past 12 Hours) Vital Signs Temp Pulse Pulse Resp BP BP Pulse Ox 08/10/22 15:31 36.8 C 93 H 16 148/87 H 98 08/10/22 11:02 36.9 C 88 16 152/86 H 98 08/10/22 09:52 94 H 08/10/22 08:04 97 H 08/10/22 07:53 36.6 C 93 H 16 158/104 H 162/96 H 98 O2 Del Method 08/10/22 15:31 Room Air 08/10/22 11:02 Room Air 08/10/22 09:52 08/10/22 08:04 08/10/22 07:53 Room Air
[2022-08-10] MEDS ORDERED: OLANZAPINE 2.5 MG TAB PO SCH (21:00)
--- NOTE | 2022-08-12 21:14 | Discharge Summary ---
Date of Service August 11, 2022 Admission HPI Per Admitting Provider This is a 62-year-old male with past medical history significant for prediabetes, acute necrotizing pancreatitis, pancreatic necrosis, history of bilateral pleural effusions, hypertension, splenic vein thrombosis, superior mesenteric vein thrombosis, moderate malnutrition, history of BEN, right kidney stone, degenerative disk disease, history of septic shock, hemorrhagic shock, history of blood transfusion. Presents with abdominal gabby cath coming out. The patient has significant recent history. As per the recent discharge summary done on 08/01/2022 by Ani," he was admitted from 05/03/2022 to 05/13/2022 with necrotizing pancreatitis, status post ERCP with CBD stent placed, PD stent for cholangitis and CBD stricture on 04/25/2022 at [facility] and transferred to [facility] [place] 05/03/2022 due to worsening necrotic pancreatitis. During that admission, focus was pain management, malnutrition, and he had multiple CAT scans during that admission, which showed developed walled-of necrosis and was discharged on 05/13/2022 with Eliquis due to SMV thrombosis. From 05/19/2022 to 06/20/2022, he was readmitted to [facility] due to concern for septic/ hemorrhagic shock. During this admission, the patient underwent IR- guided drain placement for peripancreatic collection and paracentesis, which was consistent with pancreatic ascites and positive for secondary peritonitis. Cultures grew susceptible Enterococcus and the patient was placed on vancomycin given ampicillin allergy. Aspirin and Eliquis were held during that hospitalization due to hemorrhagic pancreatitis. That hospitalization was also complicated with COVID, for which the patient was treated with remdesivir and the patient also received 2 units of PRBC transfusion as admitting hemoglobin was less than 7 and he was discharged without anticoagulation at that time and again was readmitted on 06/27/2022 and discharged on 07/05/2022. At that time, CT scan was showing new splenic infarcts and was started on heparin drip. The p atient underwent EGD with endoscopic ultrasound on 06/27/2022 with placement of AXIOS stent and double pigtail plastic stents. During this admission, he completed a full antibiotic course by ID for enterococcal peritonitis, with vancomycin with subsequent PICC removal. However, due to concern for necrotizing infection, was transitioned to oral Cipro and Flagyl. GI completed repeat EGD endoscopic ultrasound, necrosectomy on 07/04/2022 and the patient improved clinically after second necrosectomy and he completed his antibiotic course with Cipro and Flagyl on 07/12/2022. On 07/21/2022, EGD was done with endoscopic necrosectomy, was performed via existing 20 mm AXIOS cystogastrostomy stent with a replacement of pigtail plastic stent via existing AXIOS stent.Again the patient presented to [facility] ED on 07/23/2022 with dizziness and multiple episodes of near syncope and in one of the syncope episodes, he pulled the drain out a little and was found to have tachycardia, hypotension, hemoglobin of 5, and had a hematemesis episode, and was given 4 units of PRBCs, 2.5 liters of normal saline, Kcentra, and a dose of TXA. Also was given vancomycin, Flagyl, cefepime and started on Levophed for persistent hypotension and was transferred to [place] again. At [place], again EGD was done on 07/24/2022, which showed the AXIOS stent eroding the stomach wall and likely the source of GI bleed. Also, repeat necrosectomy was done and the recommendation was to stop acid-reducing agents to keep AXIOS stent patent, so PPI was stopped. He did not have any more additional bleeding, so the patient's Xarelto for SMV thrombosis was resumed on 07/25/2022 and later on the evening on 07/26/2022, the patient went to bathroom for a bowel movement, felt dizzy followed by syncopal episode. Rapid response was called and was found hypotensive and i-STAT showed hypokalemia of 2.7, hemoglobin was 7.3, trending down from 8.3 and after a liter of fluids and also norepinephrine was given and 1 unit of PRBC transfusion was given and imaging studies showed active extravasation from the splenic artery. The patient underwent IR embolization of splenic artery and hemoglobin was stable. Xarelto was discontinued on 07/26/2022 after one dose due to bleeding episode. After that, he was stable. The patient was started on Zyprexa, as the patient has severe distaste for food, to assist to improve his nutrition. Blood cultures were growing bacteroides and was treated with metronidazole with end date of 08/04/2022, and today now again, he comes to the hospital because the drain from the abdomen came out. He is living at his brother's place. Last few days, cath was not draining much, but since yesterday and today, again drain picked up, he was draining about 300 mL every 4 hours. The ER called [place] and discussed with IR and also imaging studies were sent to [place]. Received fluids. Interventional radiology at [place] recommended transfer to [facility] and hospitalist accepted the patient in for transfer, but they do not have beds and the patient will most likely transfer tomorrow. Currently, resting comfortably and hemodynamically stable. Denies any headache, no dizziness, no blurred visions, no earache, no runny nose, no sore throat, no cough. Appetite is not that great. No difficulty swallowing. No chest pain, no shortness of breath, no nausea. Normal bowel and bladder movements. No swelling in the legs. Principal Diagnosis Dislodged IR drain Discharge Exam Patient was seen and examined on day of discharge. He is thin and cachetic. He is comfortable and denies abdominal pain. Discharge Data Allergies Allergy/AdvReac Type Severity Reaction Status Date / Time amoxicillin [From Augmentin] Allergy angioedema Verified 06/26/22 20:25 clavulanic acid Allergy angioedema Verified 06/26/22 20:25 [From Augmentin] Consultations 08/09/22 21:48 ED Decision to Admit Stat 08/10/22 12:22 Radiology Transfer Of Images Stat Ordered Studies 08/09/22 19:11 CT abdomen pelvis veno w con Stat Hospital Course (1) Pancreatic necrosis: (2) Chronic thrombosis of splenic vein: Plan Patient is a 62 year old man with an extensive and complicated GI history (see HPI) who presented to [facility] after his pancreatic necrotic cyst drain became dislodged. Upon presentation here, his case was discussed by ER provider with IR at [facility] and he was accepted for transfer there for replacement of his drain. He had a CT venogram (report below). Of note, he has chronic splenic vein thrombosis but he is not currently on anticoagulation due to history of life threatening bleed requiring multiple transfusions and also splenic artery embolization. It was recommended he discuss with his doctors at [facility] whether he should resume AC. IMPRESSION: 1. Necrotizing pancreatitis with combination of parenchymal and peripancreatic necrosis redemonstrated. Multiloculated areas of walled off necrosis have decreased in size from the 07/23/2022 study as above. 2. Status post removal of the percutaneous pigtail drainage catheter which now appears to be external to the patient. 3. Satisfactory positioning of the common bile duct stent with mild intrahepatic and extrahepatic biliary ductal dilation. 4. Large and small bowel air-fluid levels with mildly dilated loops of small bowel suggestive of an ileus. A partial small bowel obstruction could have a similar appearance. 5. Questioned sinus tracts/fistulous connection between the transverse colon and areas of walled off necrosis. Attention at follow-up recommended. 6. Stable moderate left pleural effusion with left basilar atelectasis. 7. 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 Total Time Total Time Spent Total Time Spent (In Minutes): 45 Discharge Plan Discharge Items Patient Disposition: Transfer Acute Care Hospital Reason For Visit: WOUND Discharge Diagnosis: Dislodged IR drain Condition on Discharge: Good Activity: Resume your previous activity Non-emergency contact: Primary Care Provider, Surgeon and Barrel Lapper Call non-emergency contact if: you have any medication questions Follow-up/Referrals: Jerome Schultz, [Primary Care Provider] - Diet: Nothing by Mouth Addtl Attending Provider Instructions: Follow up with your order picker to discuss whether you should be restarted on blood thinner medication Pending Studies at Discharge: No Stand-Alone Forms: My [facility] Skilled Items Patient informed of condition?: Yes DNR: No Discharge Level of Care: Other Communicable Disease: No Discharge Prognosis: Stable Lines: Peripheral IV Urinary Catheter: No Medications and DC Order Prescriptions: Continued cyclobenzaprine 10 mg tablet 10 mg PO TID PRN (Reason: Muscle Pain) acetaminophen [Tylenol] 325 mg Tablet 650 mg PO QID PRN (Reason: Pain) metoprolol succinate 50 mg tablet extended release 24 hr 50 mg PO DAILY olanzapine 2.5 mg tablet 2.5 mg PO HS Discharge Orders: Discharge Order (Routine); Ordered 08/10/22 Ordered By: Regino Mcnair Admission Data Admit Date/Time: 08/09/22 23:10 Attending Provider: Regino Mcnari Admit Provider: Misha Ramírez Primary Care Provider: Jerome Schultz Other Providers: Misha Ramírez ; Caio Cotton Other Interventions: Discharge Summary Assessment (RN) Last Done: 08/10/22 18:29
== END 2022-08-10 06:30 | disposition short-term general hospital (02) | DRG 919 ==
LOC: ED 15:49 → 2S 23:10 → SUATTDRO 23:10 → 2S 08-10 00:17

== ENCOUNTER 2023-01-17 11:04 | Inpatient (IN) ==
[2023-01-17] MEDS ORDERED: SODIUM CHLORIDE 0.9% 1000ML 1,000 ML IV SCH (12:15)
[2023-01-17] MEDS ORDERED: SODIUM CHLORIDE 0.9% 500 ML IV SCH (12:15)
[2023-01-17 12:55] LABS: Appearance Urine Clear (Clear); Bilirubin Urine Negative (Negative); Blood Urine Negative (Negative); Color Urine Yellow; Glucose Urine UA 3+ (Negative); Ketones Urine 1+ (Negative); Leukocyte Esterase Urine Negative (Negative); Nitrite Urine Negative (Negative); Protein Urine Negative (Negative); Specific Gravity Urine 1.028 (1.000-1.030); Urobilinogen Urine Negative (Negative)
[2023-01-17 12:59] LABS: Basophils # (auto) 0.04 K/uL (0-0.2); Basophils % (auto) 0.7 %; Eosinophils # (auto) 0.14 K/uL (0-0.50); Eosinophils % (auto) 2.4 %; Hematocrit (blood only) 39.2 % (42.0-52.0); Hemoglobin 13.3 g/dl (14.0-18.0); Immature Granulocytes # (auto) 0.02 K/uL (0.01-0.20); Immature Granulocytes % (auto) 0.3 %; Lymphocytes # (auto) 1.65 K/uL (1.2-3.4); Lymphocytes % (auto) 28.8 %; Mean Corpuscular Hemoglobin 28.4 pg (25.0-34.0); Mean Corpuscular Hgb Conc 33.9 g/dL (32.0-36.0); Mean Corpuscular Volume 83.6 fL (80.0-100.0); Mean Platelet Volume 12.3 fL (9.4-12.4); Monocytes # (auto) 0.32 K/uL (0.11-0.59); Monocytes % (auto) 5.6 %; Neutrophils # (auto) 3.56 K/uL (1.40-6.50); Neutrophils % (auto) 62.2 %; Platelet Count 254 K/uL (130-400); RDW Coefficient of Variation 14.8 % (11.5-14.5); RDW Standard Deviation 44.9 fL (36.4-46.3); Red Blood Count 4.69 M/uL (4.70-6.10); White Blood Count 5.73 K/ul (4.8-10.8)
--- NOTE | 2023-01-17 13:17 | Emergency Department Note ---
Impression & Plan Hyperglycemia ED Provider Note INFORMANT: Patient ED PROVIDER(S): Ed Patrick MD CHIEF COMPLAINT: Hyperglycemia PLAN: Disposition: Admitted Condition: Good Outpatient prescription management: none Referral: None MEDICAL DECISION MAKING: Patient presented because of hyperglycemia. Work-up was initiated. No evidence of DKA on his laboratory testing. Pseudohyponatremia was present. Patient does have hyperglycemia. He was hydrated. He was given IV insulin. Outside records reviewed and the patient has been having problems with blood sugar for quite some time. He did have an abnormal hemoglobin A1c as an outpatient. It was rechecked here and it was 14. Patient does have an elevated lipase but does not have any pain to suggest pancreatitis. This indicates patient has had a significant problem over the last several weeks and is not on medication at home. He will require further management in the hospital. Discussed with the [facility] service. Patient was evaluated in the ED and admitted for further management. Discussed with med spa manager After review of the information above and other included data, I feel the patient requires admission. Triage Nursing notes reviewed and agree them. Vital Signs: reviewed and remarkable for hypertension Prior /Outside records reviewed: Prior care external records reviewed. Hyperglycemia has been an issue over the last several weeks and they have been trying to address but have been unsuccessful. Differential diagnosis: Infection, dehydration, metabolic abnormality, hypo/hyperglycemia, electrolyte disturbance, anemia, hypoxia, cardiac sources, intracerebral event, toxicologic, neurologic, as well as other pathologies. Diagnostics, as interpreted by me: ECG: Twelve-lead ECG reveals normal sinus rhythm at [address] elevation or depression. No PACs or PVCs. Cardiac Monitoring: Cardiac monitoring ordered by me: The patient was placed on continuous cardiac monitoring and observed. It revealed a normal sinus rhythm at 65 beats per minute without ectopy or evidence of dysrhythmia. Medical decision rules: none Imaging studies: Chest x-ray. Findings: A chest x-ray was performed and revealed no pneumothorax, effusion, infiltrate, pulmonary edema, free air under the diaphragm, or wide mediastinum. Impression: No acute disease. HPI: The patient is a 62year old male history of gallstone pancreatitis and causing necrosis of the pancreas who presents to the Emergency Room with complaints of hyperglycemia. This started over the last 2 to 3 weeks and is persisting. Patient states that he developed necrotizing pancreatitis after a gallstone issue and subsequently was treated with insulin while he was hospitalized. He spent 79 days in the hospital over the course of his illness and after healing from that process he was not requiring any insulin. The patient also notes the following associated symptoms, frequent urination. The patient has been prescribed no medication for relieving factors. Current pain is rated as 0/10. Pt denies LOC, headache, fevers, chills, diaphoresis, visual changes, neck pain, chest pain, breathing difficulties, nausea, vomiting, abdominal pain, back pain, melena, hematochezia, urinary symptoms, numbness, weakness, lymphadenopathy, rash, or other complaints. PAST MEDICAL HISTORY: See Below, gallstone pancreatitis PAST SURGICAL HISTORY: See Below, SOCIAL HISTORY: See Below, non-smoker HOME MEDICATIONS: See Below ALLERGIES: See Below VITALS: See Below PHYSICAL EXAMINATION: GENERAL: Awake, alert, well-appearing, in no distress HENT: Normocephalic, atraumatic. Oropharynx unremarkable. EYES: Normal conjunctiva. Sclera non-icteric. NECK: Inspection normal. Non-tender. Supple. No nuchal rigidity. FROM. No masses. RESPIRATORY: Clear to auscultation. No wheezes. No rales. Normal respiratory effort. CARDIAC: Normal rate. Normal rhythm. No murmurs. No rubs. Extremities warm and well perfused. Pulses equal. No JVD. GI: Soft, non-distended. No tenderness to palpation. No rebound or guarding. No masses. RECTAL: Deferred. MUSCULOSKELETAL: Atraumatic. Chest examination reveals no tenderness. The back is symmetrical on inspection without obvious abnormality. There is no CVA tenderness to palpation. No joint edema. LOWER EXTREMITIES: Calves are equal size bilaterally and non-tender. No edema. No discoloration. NEURO: Normal sensorium. No sensory or motor deficits noted. SKIN: No rash or jaundice noted. Past Med/Surg History Medical History (Updated 01/17/23 @ 15:58 by MONTY Sharif) Cholangitis Hypertension Surgical History History of back surgery Social History Smoking Status: Never smoker Second Hand Exposure: No; Do You Dip or Chew Tobacco: No; Hx Alcohol Use: No Hx Substance Use: No Preferred Language: Martiniquais Communication Ability: Effective Log Cooker Required: No Beliefs That Will Affect Care: None marital status: Single Current Living Situation: Alone current occupational status: retired How many Children do You have: 0 Feels Safe at Home: Yes Safety Concerns: Feels Safe At This Time Assistive Devices: Denture - Upper and Glasses Allergies Allergies Allergy/AdvReac Type Severity Reaction Status Date / Time amoxicillin [From Augmentin] Allergy angioedema Verified 01/17/23 14:05 clavulanic acid Allergy angioedema Verified 01/17/23 14:05 [From Augmentin] Home Meds Home Medications Medication Instructions Recorded Confirmed acetaminophen 325 mg tablet 650 mg PO QID PRN Pain 08/09/22 01/17/23 (Tylenol) cyclobenzaprine 10 mg tablet 10 mg PO TID PRN Muscle Pain 08/09/22 01/17/23 metoprolol succinate 50 mg 25 mg PO DAILY 08/09/22 01/17/23 tablet,extended release 24 hr Results & Data (ED) Vital Signs Vital Signs - 24 hr 01/17/23 11:22 01/17/23 12:51 01/17/23 14:30 Temperature 36.9 C Temperature Source Temporal Artery Scan Pulse Rate 87 76 78 Pulse Rate [Apical] Pulse Rate from SpO2 Sensor 78 Respiratory Rate 18 14 Respiratory Effort / Characteristics Non-Labored Spontaneous Respiratory Depth Normal Respiratory Pattern Regular Blood Pressure 185/95 H 162/95 H Blood Pressure [Left Arm] Blood Pressure Mean 125 117 Blood Pressure Mean [Left Arm] Blood Pressure Position Sitting Blood Pressure Position [Left Arm] Pulse Oximetry 100 100 Oxygen Delivery Method Room Air Sepsis Recent Fever Within 48 Hours No Sepsis New/Unexplained Change in Mental Status N/A Sepsis Action Taken by Nursing No Action Required 01/17/23 15:00 01/17/23 15:00 01/17/23 15:30 Temperature Temperature Source Pulse Rate 70 71 Pulse Rate [Apical] 70 Pulse Rate from SpO2 Sensor Respiratory Rate 18 18 13 Respiratory Effort / Characteristics Respiratory Depth Respiratory Pattern Blood Pressure 118/84 Blood Pressure [Left Arm] 149/84 H Blood Pressure Mean 95 Blood Pressure Mean [Left Arm] 105 Blood Pressure Position Blood Pressure Position [Left Arm] Sitting Pulse Oximetry 99 99 99 Oxygen Delivery Method Room Air Sepsis Recent Fever Within 48 Hours Sepsis New/Unexplained Change in Mental Status Sepsis Action Taken by Nursing Laboratory Data 01/17/23 12:14 01/17/23 12:14 Lab Results 01/17/23 01/17/23 01/17/23 Range/Units 11:49 11:54 12:00 WBC (4.8-10.8) K/ul RBC (4.70-6.10) M/uL Hgb (14.0-18.0) g/dl Hct (42.0-52.0) % MCV (80.0-100.0) fL MCH (25.0-34.0) pg MCHC (32.0-36.0) g/dL RDW Std Deviation (36.4-46.3) fL RDW Coeff of Fred (11.5-14.5) % Plt Count (130-400) K/uL MPV (9.4-12.4) fL Immature Gran % (Auto) % Neut % (Auto) % Lymph % (Auto) % [place] % (Auto) % Eos % (Auto) % Baso % (Auto) % Neut # (Auto) (1.40-6.50) K/uL Lymph # (Auto) (1.2-3.4) K/uL [place] # (Auto) (0.11-0.59) K/uL Eos # (Auto) (0-0.50) K/uL Baso # (Auto) (0-0.2) K/uL Immature Gran # (Auto) (0.01-0.20) K/uL Sodium (136-145) mmol/L Potassium (3.5-5.1) mmol/L Chloride (98-107) mmol/L Carbon Dioxide (21-32) mmol/L Anion Gap (3-11) BUN (6-23) mg/dl Creatinine (0.6-1.4) mg/dl Est Cr Clr Drug Dosing ml/min Est GFR ( Amer) ml/min Est GFR (Non-Af Amer) ml/min BUN/Creatinine Ratio (10-20) Glucose (70-99(Fasting)) mg/dl POC Glucose 469 H* 436 H* (70-99) mg/dl Estimat Average Glucose mg/dl Hemoglobin A1c (4.5-5.6) % Calcium (8.6-10.3) mg/dl Magnesium (1.7-2.4) mg/dl Total Bilirubin (0.2-1.0) mg/dl AST (13-39) U/L ALT (7-52) U/L Alkaline Phosphatase (34-104) U/L Troponin I High Sens (0-20) pg/ml Total Protein (6.0-8.3) gm/dl Albumin (3.4-5.0) gm/dl Globulin (2.5-4.0) gm/dl Albumin/Globulin Ratio (0.9-2) Lipase (11-82) U/L TSH (0.300-4.500) uIu/ml Urine Color Yellow Urine Appearance Clear (Clear) Urine pH 6.0 (4.5-7.5) Ur Specific [place] 1.028 (1.000-1.030) Urine Protein Negative (Negative) Urine Glucose (UA) 3+ H (Negative) Urine Ketones 1+ H (Negative) Urine Blood Negative (Negative) Urine Nitrite Negative (Negative) Urine Bilirubin Negative (Negative) Urine Urobilinogen Negative (Negative) Ur Leukocyte Esterase Negative (Negative) SARS-CoV-2, RNA, NAAT (NEGATIVE) 01/17/23 01/17/23 01/17/23 Range/Units 12:14 12:14 12:14 WBC 5.73 (4.8-10.8) K/ul RBC 4.69 L (4.70-6.10) M/uL Hgb 13.3 L (14.0-18.0) g/dl Hct 39.2 L (42.0-52.0) % MCV 83.6 (80.0-100.0) fL MCH 28.4 (25.0-34.0) pg MCHC 33.9 (32.0-36.0) g/dL RDW Std Deviation 44.9 (36.4-46.3) fL RDW Coeff of Fred 14.8 H (11.5-14.5) % Plt Count 254 (130-400) K/uL MPV 12.3 (9.4-12.4) fL Immature Gran % (Auto) 0.3 % Neut % (Auto) 62.2 % Lymph % (Auto) 28.8 % [place] % (Auto) 5.6 % Eos % (Auto) 2.4 % Baso % (Auto) 0.7 % Neut # (Auto) 3.56 (1.40-6.50) K/uL Lymph # (Auto) 1.65 (1.2-3.4) K/uL [place] # (Auto) 0.32 (0.11-0.59) K/uL Eos # (Auto) 0.14 (0-0.50) K/uL Baso # (Auto) 0.04 (0-0.2) K/uL Immature Gran # (Auto) 0.02 (0.01-0.20) K/uL Sodium 127 L (136-145) mmol/L Potassium 4.9 (3.5-5.1) mmol/L Chloride 92 L (98-107) mmol/L Carbon Dioxide 26 (21-32) mmol/L Anion Gap 9 (3-11) BUN 35 H (6-23) mg/dl Creatinine 1.22 (0.6-1.4) mg/dl Est Cr Clr Drug Dosing 53.7 ml/min Est GFR ( Amer) 73.7 ml/min Est GFR (Non-Af Amer) 63.6 ml/min BUN/Creatinine Ratio 28.7 H (10-20) Glucose 467 H* (70-99(Fasting)) mg/dl POC Glucose (70-99) mg/dl Estimat Average Glucose mg/dl Hemoglobin A1c (4.5-5.6) % Calcium 9.7 (8.6-10.3) mg/dl Magnesium 2.0 (1.7-2.4) mg/dl Total Bilirubin 0.4 (0.2-1.0) mg/dl AST 14 (13-39) U/L ALT 12 (7-52) U/L Alkaline Phosphatase 116 H (34-104) U/L Troponin I High Sens 5.8 (0-20) pg/ml Total Protein 8.0 (6.0-8.3) gm/dl Albumin 4.4 (3.4-5.0) gm/dl Globulin 3.6 (2.5-4.0) gm/dl Albumin/Globulin Ratio 1.2 (0.9-2) Lipase 293 H (11-82) U/L TSH 2.405 (0.300-4.500) uIu/ml Urine Color Urine Appearance (Clear) Urine pH (4.5-7.5) Ur Specific [place] (1.000-1.030) Urine Protein (Negative) Urine Glucose (UA) (Negative) Urine Ketones (Negative) Urine Blood (Negative) Urine Nitrite (Negative) Urine Bilirubin (Negative) Urine Urobilinogen (Negative) Ur Leukocyte Esterase (Negative) SARS-CoV-2, RNA, NAAT (NEGATIVE) 01/17/23 01/17/23 01/17/23 Range/Units 13:19 13:27 15:39 WBC (4.8-10.8) K/ul RBC (4.70-6.10) M/uL Hgb (14.0-18.0) g/dl Hct (42.0-52.0) % MCV (80.0-100.0) fL MCH (25.0-34.0) pg MCHC (32.0-36.0) g/dL RDW Std Deviation (36.4-46.3) fL RDW Coeff of Fred (11.5-14.5) % Plt Count (130-400) K/uL MPV (9.4-12.4) fL Immature Gran % (Auto) % Neut % (Auto) % Lymph % (Auto) % [place] % (Auto) % Eos % (Auto) % Baso % (Auto) % Neut # (Auto) (1.40-6.50) K/uL Lymph # (Auto) (1.2-3.4) K/uL [place] # (Auto) (0.11-0.59) K/uL Eos # (Auto) (0-0.50) K/uL Baso # (Auto) (0-0.2) K/uL Immature Gran # (Auto) (0.01-0.20) K/uL Sodium (136-145) mmol/L Potassium (3.5-5.1) mmol/L Chloride (98-107) mmol/L Carbon Dioxide (21-32) mmol/L Anion Gap (3-11) BUN (6-23) mg/dl Creatinine (0.6-1.4) mg/dl Est Cr Clr Drug Dosing ml/min Est GFR ( Amer) ml/min Est GFR (Non-Af Amer) ml/min BUN/Creatinine Ratio (10-20) Glucose (70-99(Fasting)) mg/dl POC Glucose 280 H (70-99) mg/dl Estimat Average Glucose 372 mg/dl Hemoglobin A1c 14.6 H (4.5-5.6) % Calcium (8.6-10.3) mg/dl Magnesium (1.7-2.4) mg/dl Total Bilirubin (0.2-1.0) mg/dl AST (13-39) U/L ALT (7-52) U/L Alkaline Phosphatase (34-104) U/L Troponin I High Sens (0-20) pg/ml Total Protein (6.0-8.3) gm/dl Albumin (3.4-5.0) gm/dl Globulin (2.5-4.0) gm/dl Albumin/Globulin Ratio (0.9-2) Lipase (11-82) U/L TSH (0.300-4.500) uIu/ml Urine Color Urine Appearance (Clear) Urine pH (4.5-7.5) Ur Specific [place] (1.000-1.030) Urine Protein (Negative) Urine Glucose (UA) (Negative) Urine Ketones (Negative) Urine Blood (Negative) Urine Nitrite (Negative) Urine Bilirubin (Negative) Urine Urobilinogen (Negative) Ur Leukocyte Esterase (Negative) SARS-CoV-2, RNA, NAAT NEGATIVE (NEGATIVE) Administered Medications Sodium Chloride (Nss 1000ml) 1,000 mls @ 125 mls/hr IV .Q8H AVERY Stop: 01/17/23 20:14 Last Admin: 01/17/23 12:44 Dose: 125 mls/hr Documented By: CUBA Discontinued Medications Sodium Chloride (Nss) 500 mls @ 999 mls/hr IV .Q31M AVERY Stop: 01/17/23 12:45 Last Infusion: 01/17/23 14:06 Dose: 0 mls/hr Documented By: Admin: 01/17/23 12:48 Dose: 999 mls/hr Documented By: CUBA Insulin Human Regular (Novolin-R Insulin Per Unit Charge) 6 units IV NOW STA Stop: 01/17/23 13:37 Last Admin: 01/17/23 14:03 Dose: 6 units Documented By: ALLEY Co-signed By: EML Imaging Data Radiologist's Impression: Chest X-Ray 01/17/23 12:05 XR chest 1V portable HISTORY: hyperglycemia COMPARISON: Chest 07/23/2022. FINDINGS: No pneumothorax. No pleural effusions. No focal lung consolidations to suggest a pneumonia. No evidence for pulmonary edema. The heart is normal in size. Left basilar nodular density is consistent with a nipple shadow. No acute fractures identified. IMPRESSION: No acute process. ACT 112: Negative or not required by law. Electronically signed by: Juan Luis Sullivan M.D. 01/17/2023 1:35 PM Discharge Plan Visit Data Chief Complaint: Hyperglycemia Stated Complaint: HYPERGLYCEMIA ED Provider: Ed Patrick Discharge Problem: Hyperglycemia Patient Disposition: Admitted As Inpatient Discharge Instructions Interventions: ED Discharge Assessment Last Done: 01/17/23 17:41
[2023-01-17 13:21] LABS: Albumin Globulin Ratio 1.2 (0.9-2); Albumin Level 4.4 gm/dl (3.4-5.0); BUN Creatinine Ratio 28.7 (10-20); Bilirubin,Total 0.4 mg/dl (0.2-1.0); Calcium 9.7 mg/dl (8.6-10.3); Creatinine Clr Calc Pharmacy 53.7 ml/min; Est GFR (African American) 73.7 ml/min; Est GFR (Non-African American) 63.6 ml/min; Globulin 3.6 gm/dl (2.5-4.0); Potassium 4.9 mmol/L (3.5-5.1); Troponin I High Sensitivity 5.8 pg/ml (0-20)
[2023-01-17] MEDS ORDERED: NovoLIN-R INSULIN PER UNIT CHARGE IV STA (13:36)
--- NOTE | 2023-01-17 13:36 | XRay Report ---
XR chest 1V portable HISTORY: hyperglycemia COMPARISON: Chest 07/23/2022. FINDINGS: No pneumothorax. No pleural effusions. No focal lung consolidations to suggest a pneumonia. No evidence for pulmonary edema. The heart is normal in size. Left basilar nodular density is consis tent with a nipple shadow. No acute fractures identified. IMPRESSION: No acute process. ACT 112: Negative or not required by law. Electronically signed by: Juan Luis Sullivan M.D. 01/17/2023 1:35 PM
[2023-01-17 14:07] LABS: Estimated Average Glucose 372 mg/dl; Hemoglobin A1C 14.6 % (4.5-5.6)
[2023-01-17] MEDS ORDERED: ALUMINUM/MAGNESIUM SUSP 30 ML UDC PO PRN (15:50)
[2023-01-17] MEDS ORDERED: ACETAMINOPHEN 325 MG TAB PO PRN (15:50)
[2023-01-17] MEDS ORDERED: ONDANSETRON INJ 2 MG/ML 2 ML VIAL IV PRN (15:50)
[2023-01-17] MEDS ORDERED: MAGNESIUM HYDROXIDE SUSP 30 ML UDC PO PRN (15:50)
--- NOTE | 2023-01-17 15:55 | History & Physical Report ---
Date of Service January 17, 2023 Assessment & Plan (1) Hyperglycemia: (2) Necrotizing pancreatitis: (3) Hypertension: (4) Hyponatremia: (5) Uncontrolled diabetes mellitus with hyperglycemia: (6) BEN (acute kidney injury): Plan 62 year old with hyperglycemia as a result of necrotizing pancreatitis that resulted in a lengthy hospitalization from 06/26-08/28. A1C as outpatient was 12.2 on 12/22; was advised to go to ED; patient declined to go at that time. In ED, glucose 467. A.G. 9. Received 6 Units of Insulin in ED; responding nicely. Will place on AC/HS glucose monitoring with SSI. No active signs of pancreatitis; lipase level 293; will trend in AM. Other H/O HTN; takes Me toprolol. Hyperglycemia: Hyponatremia: Likely secondary to history of necrotizing pancreatitis Glucose 467 in ED; received 6 Units of SQ Insulin in ED, glucose responding n icely, now at 280 Lipase 293; No transaminitis FSBS ACHS with SSI Na+ 127. 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 He had a complicated course including ascites, peritonitis with enterococcus s/p abx. and led to a 78 day inpatient hosptialization. Follows as an outpatient with GI Lipase 293; will trend in AM; do not suspect any acute pancreatitis HTN: Takes Metoprolol; continue Disposition: PCP: Dr. Schultz Code Status: Full Code VTE Prophylaxis: Lovenox SQ I spent a total of 87 minutes coordinating, documenting, and providing care for this patient excluding time spent in the performance of separately billed services. All of the aforementioned completed while collaborating with the assigned attending physician for a full treatment plan. Please see their a ddendum for further details. History of Present Illness Chief Complaint: cellulitis Primary Care Provider: Jerome Schultz DO Mr. Doss is a 62 year old male that presents to the [facility] with uncontrolled glucose levels. Patient had a complex hospitalization 06/26 with 79 days inpatient stay for gallstone necrotizing pancreatitis. Pt did see Dr. Schultz a few weeks ago and was advised his glucose level was > 600 and was ad vised to go to the ED. Pt admits to being reluctant to do so because of his lengthy hospital stay. Instead of going to the ED, he focused on staying active by mowing the lawn, hydrating and avoiding sugars. He reports that his appetite is returning after the procedure and he is gaining some weight, intentionally. He was taking Megace and is not anymore. He does report slight blurry vision and polyuria. Today, his glucose initially was 480 and he responded to 6 Units of IV Insulin. His Anion Gap is 9 today. Corrected Sodium 133. He does not follow with an meat seafood associate or CDE. Most recent A1C checked 12/19/22 12.2 with AG 13. Potassium at that time was 5.6. He follows with GI in [place] and recently had an upper GI scope for stent removal on 11/21/2022. ERCP done at the same time. His recent hospitalization was complicated by ascites, peritonitis with enterococcus s/p abx. Additional PMH includes HTN. CXR negative for acute cardiopulmonary disease. No leukocytosis, no transamini tis. Lipase elevated 293. Patient denies fevers, chills, NELSON, auditory changes, dizziness, SOB, chest pain, heart palpitations, N/V/D, falls or recent trauma. Patient will be admitted for further evaluation and management. Please see A/P for further details. Allergies Allergy/AdvReac Type Severity Reaction Status Date / Time amoxicillin [From Augmentin] Allergy angioedema Verified 01/17/23 14:05 clavulanic acid Allergy angioedema Verified 01/17/23 14:05 [From Augmentin] Home Medications Medication Instructions Recorded Confirmed Type acetaminophen 325 mg tablet 650 mg PO QID PRN Pain 08/09/22 01/17/23 History (Tylenol) cyclobenzaprine 10 mg tablet 10 mg PO TID PRN Muscle Pain 08/09/22 01/17/23 History metoprolol succinate 50 mg 25 mg PO DAILY 08/09/22 01/17/23 History tablet,extended release 24 hr Past Med/Surg History Medical History Cholangitis Hypertension Hyponatremia Surgical History History of back surgery Social History Smoking Status: Never smoker Second Hand Exposure: No; Do You Dip or Chew Tobacco: No; Hx Alcohol Use: No Hx Substance Use: No Preferred Language: Lao Communication Ability: Effective Recruitment Director Required: No Beliefs That Will Affect Care: None marital status: Single Current Living Situation: Alone current occupational status: retired How many Children do You have: 0 Feels Safe at Home: Yes Safety Concerns: Feels Safe At This Time Assistive Devices: Denture - Upper and Glasses Review of Systems Review of Systems: Neuro: (-) Falls, trauma, slurred speech HEENT: (-) NELSON, dizziness, dysphagia, (+) blurry vision (-) auditory changes CV: (-) CP, palpitations, swelling Resp: (-) SOB GI: (-) appetite changes, N/V/D, bowel changes : (+) polyuria, (-) hematuria Skin: (-) rashes Psych: (-) anxiety, depression Physical Exam Physical Exam: Neuro: AAOx4, PERRLA, no aphagia, memory changes, CNII-XII grossly intact HEENT: head normocephalic, moist mucus membranes CV: S1/S2, (-) M/G/R, (-) edema, cap refill < 3 seconds Resp: Lungs CTA in all johnson. On RA GI: Abdomen S/NT/ND, Ax4 bowel sounds, (-) CVA tenderness Musculoskeletal: 5/5 B/L UE strength, 5/5 B/L LE strength. No gait disturbance Skin: (-) rashes , (-) erythema. Psych: euthymic mood Results & Data Results & Data Vital Signs (Past 12 Hours) Vital Signs Temp Pulse Pulse Resp BP BP Pulse Ox 01/17/23 15:00 70 18 149/84 H 99 01/17/23 15:00 70 18 99 01/17/23 14:30 78 14 162/95 H 100 01/17/23 12:51 76 01/17/23 11:22 36.9 C 87 18 185/95 H 100 O2 Del Method 01/17/23 15:00 01/17/23 15:00 01/17/23 14:30 01/17/23 12:51 01/17/23 11:22 Room Air Laboratory Results Short CBC 01/17/23 Range/Units 12:14 WBC 5.73 (4.8-10.8) K/ul Hgb 13.3 L (14.0-18.0) g/dl Hct 39.2 L (42.0-52.0) % Plt Count 254 (130-400) K/uL BMP 01/17/23 12:14 Sodium 127 L Potassium 4.9 Chloride 92 L Carbon Dioxide 26 BUN 35 H Creatinine 1.22 Glucose 467 H* Calcium 9.7 Liver Function 01/17/23 Range/Units 12:14 Total Bilirubin 0.4 (0.2-1.0) mg/dl AST 14 (13-39) U/L ALT 12 (7-52) U/L Alkaline Phosphatase 116 H (34-104) U/L Albumin 4.4 (3.4-5.0) gm/dl Urine 01/17/23 Range/Units 12:00 Urine Color Yellow Urine Appearance Clear (Clear) Urine pH 6.0 (4.5-7.5) Ur Specific [place] 1.028 (1.000-1.030) Urine Protein Negative (Negative) Urine Glucose (UA) 3+ H (Negative) Diagnostic Findings Chest X-Ray 01/17/23 12:05 XR chest 1V portable HISTORY: hyperglycemia COMPARISON: Chest 07/23/2022. FINDINGS: No pneumothorax. No pleural effusions. No focal lung consolidations to suggest a pneumonia. No evidence for pulmonary edema. The heart is normal in size. Left basilar nodular density is consistent with a nipple shadow. No acute fractures identified. IMPRESSION: No acute process. ACT 112: Negative or not required by law. Electronically signed by: Juan Luis Sullivan M.D. 01/17/2023 1:35 PM Code Status & VTE Plan Code Status Full Code in the event of cardiac or respiratory arrest VTE Prophylaxis Plan VTE Prophylaxis will be ordered: Yes Supervising Physician Co-Signing Physician Notes I have seen and examined the patient and have discussed the case with the provider above. I agree with the assessment and plan as stated with the following exceptions. 62 yo M recently hospitalized with necrotizing pancreatitis developed DMII between discharge in Aug 2022 and now. A1C is 14+. He has been trying to diet at home but ultimately came in for assistance because he couldn't get the glucose below 350. He reports having lost a significant amount of weight from his prolonged hospital stay and was emaciated at discharge. His appetite returned with Megace and he is doing well now and at a more healthy weight. Record review reveals a significant improvement in his anemia. We spent at least 15 minutes discussing diabetes pathophysiology and available treatment options. He is not in favor of insulin. We discussed a regimen like once daily Lantus and metformin and he feels he can do this. Follow-up at the [facility] clinic is imperative post hospital discharge. Appreciate visual educator assistance with setting him up wt supplies and providing additional counseling. He demonstrates a sound knowledge of nutrition and food sources that contain sugar, etc. He verbalized understanding the terminal gauger complications of uncontrolled blood sugar. We reviewed annual screenings for eyes, feet, kidneys etc. He verbalized understanding with intent to comply. Physical exam is unremarkable. He appears well and is mentating clearly. Labwork reviewed. Corrected Na is 136 and there is a mild BEN with creat 1.22 from 0.7. will repeat BMP after IVF given today. Patient prefers not to be hooked to IVF overnight. Cont with basal bolus insulin for now and would look to [place] home on Thursday for smoother transition of care as well as continued monitoring in this initial period. DO Rory
[2023-01-17] MEDS ORDERED: GLUCAGON FOR INJ 1 MG VIAL SQ PRN (16:55)
[2023-01-17] MEDS ORDERED: PHARMACY GLYCEMIC MGMT CONSULT PRN (16:55)
[2023-01-17] MEDS ORDERED: GLUCOSE 40% GEL 15 GM TUBE PO PRN (16:55)
[2023-01-17] MEDS ORDERED: GLUCOSE 10 TAB/TUBE PO PRN (16:55)
[2023-01-17] MEDS ORDERED: DEXTROSE 50% 50 ML SYRINGE IV PRN (16:55)
[2023-01-17] MEDS ORDERED: CARBOHYDRATES FOR HYPOGLYCEMIA PO PRN (16:55)
[2023-01-17] MEDS: INSULIN ASPART PER UNIT CHARGE SC SCH ×2 (18:44→21:59)
[2023-01-17] MEDS: ENOXAPARIN INJ 40 MG/0.4 ML SYR SQ SCH (19:28)
[2023-01-17] MEDS ORDERED: LANTUS PER UNIT CHARGE SQ SCH (21:00)
[2023-01-17] MEDS: SODIUM CHLORIDE 0.9% 1000ML 1,000 ML IV SCH (22:34)
[2023-01-18] MEDS: INSULIN ASPART PER UNIT CHARGE SC SCH ×6 (01:02→21:09)
[2023-01-18] MEDS: SODIUM CHLORIDE 0.9% 1000ML 1,000 ML IV SCH (05:06)
[2023-01-18 08:06] LABS: Hematocrit (blood only) 40.6 % (42.0-52.0); Hemoglobin 13.6 g/dl (14.0-18.0); Mean Corpuscular Hemoglobin 27.8 pg (25.0-34.0); Mean Corpuscular Hgb Conc 33.5 g/dL (32.0-36.0); Mean Platelet Volume 11.6 fL (9.4-12.4); Platelet Count 276 K/uL (130-400); RDW Coefficient of Variation 15.1 % (11.5-14.5); RDW Standard Deviation 46.4 fL (36.4-46.3); Red Blood Count 4.89 M/uL (4.70-6.10); White Blood Count 5.41 K/ul (4.8-10.8)
[2023-01-18 08:23] LABS: Albumin Globulin Ratio 1.2 (0.9-2); BUN Creatinine Ratio 27.5 (10-20); Bilirubin,Total 0.3 mg/dl (0.2-1.0); Calcium 9.7 mg/dl (8.6-10.3); Creatinine Clr Calc Pharmacy 64.7 ml/min; Est GFR (African American) 91.5 ml/min; Globulin 3.3 gm/dl (2.5-4.0); Magnesium 1.8 mg/dl (1.7-2.4); Total Protein 7.3 gm/dl (6.0-8.3)
[2023-01-18] MEDS: LANTUS PER UNIT CHARGE SQ SCH ×2 (08:33→21:14)
[2023-01-18] MEDS: METOPROLOL SUCC 25MG EXT REL TAB PO SCH (08:39)
[2023-01-18] MEDS: ENOXAPARIN INJ 40 MG/0.4 ML SYR SQ SCH (08:40)
--- NOTE | 2023-01-18 11:45 | Electrocardiogram Report ---
Test Reason : Blood Pressure : / mmHG Vent. Rate : 080 BPM Atrial Rate : 080 BPM P-R Int : 168 ms QRS Dur : 110 ms QT Int : 392 ms P-R-T Axes : 063 -20 042 degrees QTc Int : 452 ms Normal sinus rhythm Possible Left atrial enlargement Borderline ECG When compared with ECG of 23-JUL-2022 05:58, Significant changes have occurred Confirmed by Raffaele Diana ([id number]) on 01/18/2023 11:45:48 AM Referred By: REFERRED SELF Confirmed By:Raffaele Diana
--- NOTE | 2023-01-18 12:49 | Pharmacy Report ---
Pharmacy Glycemic Short Note 2 - Date of Service January 18, 2023 - Glycemic Short BSG Results (Last 24 hours): 01/17/23 01/17/23 01/17/23 12:14 15:39 18:24 Glucose 467 H* POC Glucose 280 H 237 H 01/17/23 01/18/23 01/18/23 21:07 00:23 05:02 Glucose POC Glucose 250 H 163 H 137 H 01/18/23 01/18/23 01/18/23 07:13 07:32 11:10 Glucose 178 H POC Glucose 171 H 279 H OUTPATIENT ANTIDIABETIC REGIMEN: * None * HbA1c 14.6% ASSESSMENT: * 62 yo M with T2DM based on HbA1c but no current diabetes medications admitted for necrotizing pancreatitis. Currently ordered diet. * BSG's trended down overnight without a large amount of basal nor bolus insulin administered. Will not be too aggressive with Lantus. OK to be slightly more aggressive with Novolog. PLAN FOR INPATIENT GLYCEMIC CONTROL: * Basal insulin * Lantus 0-12 units SQ BID, depending on BSG * Bolus insulin * NovoLog per scale ACHS or Q6hrs while NPO * Goal Range: Low 120 mg/dL - High 160 mg/dL * Correction Factor: 30 mg/dL/unit * Nutritional / Prandial insulin per carb ratio of 1 unit per 11 grams CHO consumed
--- NOTE | 2023-01-18 15:17 | Hospitalist Progress Note ---
Date of Service January 18, 2023 Assessment & Plan (1) Hyperglycemia: (2) Necrotizing pancreatitis: (3) Hypertension: (4) Hyponatremia: (5) Uncontrolled diabetes mellitus with hyperglycemia: (6) BEN (acute kidney injury): Plan 62-year-old male who was recently hospitalized [06/26 to 08/28; about 78 days] with necrotizing pancreatitis developed DM 2 between discharge in August 2022 and now. A1c of 12.2 on 12/22. Did not have any nausea/vomiting/epigastric pain or active signs of pancreatitis at presentation. Lipase level was elevated at 293 but down trended next day. He is being managed for the following: New onset Diabetes CO2 hyponatremia: Diabetes likely secondary to history of necrotizing pancreatitis Glucose 467 in ED; received 6 Units of SQ Insulin in ED, glucose responded nicely. Admitting lipase 293; No transaminitis. Lipase trended down next day. Admitting Na+ 127. Corrected Sodium 133 FSBS ACHS with SSI, glycemic consult, tobacco prevention health educator consult. Continue to monitor sodium level. Would be beneficial to follow with Endocrine as an outpatient, closely follow-up with diabetic clinic on discharge. Counseled patient in detail regarding need for lifestyle modification/regular exercise regimen/long-term follow-up for diabetic management with diabetic clinic/annual screening test related to diabetic care. H/O Necrotizing Pancreatitis: Was transferred from here to [place] 06/26 with necrotizing pancreatitis s/p pigtail catheter that fell out and required IR intervention. He had a complicated course including ascites, peritonitis with enterococcus s/p abx. and led to a 78 day inpatient hospitalization. Follows as an outpatient with GI Admitting lipase 293; trended down next day; do not suspect any acute pancreatitis HTN: Takes Metoprolol; continue Disposition: PCP: Dr. Schultz Code Status: Full Code VTE Prophylaxis: Lovenox SQ Admission and Anticipated Discharge Date Admission Date: January 17, 2023 Subjective Patient seen and examined at bedside as a follow-up of hyperglycemia/uncontrolled diabetes on the background of history of necrotizing pancreatitis. Patient was lying in bed, on room air, NAD, reports no new acute event overnight, denies any nausea or vomiting or epigastric pain or diarrhea, denies any headache or dizziness or fever or chills. Reports eating okay and moving bowels okay. Reports polyuria and polydipsia. Patient also reports that he has been checking his fingerstick glucose on his own since being discharged after necrotizing pancreatitis admission/discharge in August of this year. Per him, the blood glucose mostly ranging between 300- 400, his blood glucose was noted to be in 600s about three weeks ago at PCP office directed lab draw and hence was recommended to go to the hospital but patient did not come for several weeks and finally decided to come to the hospital yesterday. Physical Exam Physical Exam: GENERAL: Alert and oriented x3. NAD, on RA. HEENT: No pallor, no icterus. Pupils equal, round and reactive to light. Oral mucosa moist. NECK: No JVD, no neck masses. HEART: S1 and S2 heard. Regular rate and rhythm. No murmur, no gallop. RESPIRATORY SYSTEM: Normal AP diameter. No accessory muscle use. No wheezing, no crackles. ABDOMEN: Soft, bowel sounds present, nontender, no distention. CENTRAL NERVOUS SYSTEM: No facial droop. Speech is clear. Obeys simple commands. Moves extremities. EXTREMITIES: No edema, no erythema seen. Results & Data Results & Data Vital Signs (Past 12 Hours) Vital Signs Temp Pulse Pulse Resp BP Pulse Ox O2 Del Method 01/18/23 11:37 36.9 C 69 18 125/74 99 Room Air 01/18/23 07:38 36.7 C 75 17 135/78 98 Room Air 01/18/23 07:17 77 01/18/23 03:11 36.6 C 80 18 137/85 96 Room Air
[2023-01-19 07:06] LABS: Hematocrit (blood only) 40.6 % (42.0-52.0); Hemoglobin 13.7 g/dl (14.0-18.0); Mean Corpuscular Hemoglobin 27.9 pg (25.0-34.0); Mean Corpuscular Hgb Conc 33.7 g/dL (32.0-36.0); Mean Corpuscular Volume 82.7 fL (80.0-100.0); Mean Platelet Volume 11.1 fL (9.4-12.4); Platelet Count 267 K/uL (130-400); RDW Coefficient of Variation 15.4 % (11.5-14.5); RDW Standard Deviation 46.5 fL (36.4-46.3); Red Blood Count 4.91 M/uL (4.70-6.10); White Blood Count 4.54 K/ul (4.8-10.8)
[2023-01-19 07:24] LABS: BUN Creatinine Ratio 24.3 (10-20); Calcium 9.8 mg/dl (8.6-10.3); Creatinine Clr Calc Pharmacy 61.4 ml/min; Est GFR (African American) 86.4 ml/min; Est GFR (Non-African American) 74.5 ml/min; Magnesium 1.8 mg/dl (1.7-2.4); Phosphorus 4.1 mg/dl (2.5-4.9); Potassium 3.9 mmol/L (3.5-5.1)
[2023-01-19] MEDS: INSULIN ASPART PER UNIT CHARGE SC SCH ×2 (09:12→12:49)
[2023-01-19] MEDS: LANTUS PER UNIT CHARGE SQ SCH (09:12)
[2023-01-19] MEDS: METOPROLOL SUCC 25MG EXT REL TAB PO SCH (09:18)
[2023-01-19] MEDS: ENOXAPARIN INJ 40 MG/0.4 ML SYR SQ SCH (09:19)
--- NOTE | 2023-01-19 12:49 | Discharge Summary ---
Date of Service January 19, 2023 Admission HPI Per Admitting Provider Mr. Doss is a 62 year old male that presents to the [facility] with uncontrolled glucose levels. Patient had a complex hospitalization 06/26 with 79 days inpatient stay for gallstone necrotizing pancreatitis. Pt did see Dr. Schultz a few weeks ago and was advised his glucose level was > 600 and was advised to go to the ED. Pt admits to being reluctant to do so because of his lengthy hospital stay. Instead of going to the ED, he focused on staying active by mowing the lawn, hydrating and avoiding sugars. He reports that his appetite is returning after the procedure and he is gaining some weight, intentionally. He was taking Megace and is not anymore. He does report slight blurry vision and polyuria. Today, his glucose initially was 480 and he responded to 6 Units of IV Insulin. His Anion Gap is 9 today. Corrected Sodium 133. He does not follow with an rolled seat trimmer or CDE. Most recent A1C checked 12/19/22 12.2 with AG 13. Potassium at that time was 5.6. He follows with GI in [place] and recently had an upper GI scope for stent removal on 11/21/2022. ERCP done at the same time. His recent hospitalization was complicated by ascites, peritonitis with enterococcus s/p abx. Additional PMH includes HTN. CXR negative for acute cardiopulmonary disease. No leukocytosis, no transaminitis. Lipase elevated 293. Patient denies fevers, chills, NELSON, auditory changes, dizziness, SOB, chest pain, heart palpitations, N/V/D, falls or recent trauma. Patient will be admitted for further evaluation and management. Please see A/P for further details. Admission Exam Per Admitting Provider Neuro: AAOx4, PERRLA, no aphagia, memory changes, CNII-XII grossly intact HEENT: head normocephalic, moist mucus membranes CV: S1/S2, (-) M/G/R, (-) edema, cap refill < 3 seconds Resp: Lungs CTA in all johnson. On RA GI: Abdomen S/NT/ND, Ax4 bowel sounds, (-) CVA tenderness Musculoskeletal: 5/5 B/L UE strength, 5/5 B/L LE strength. No gait disturbance Skin: (-) rashes , (-) erythema. Psych: euthymic mood Principal Diagnosis New onset diabetes Pseudo hyponatremia History of necrotizing pancreatitis Discharge Exam GENERAL: Alert and oriented x3. NAD, on RA. HEENT: No pallor, no icterus. Pupils equal, round and reactive to light. Oral mucosa moist. NECK: No JVD, no neck masses. HEART: S1 and S2 heard. Regular rate and rhythm. No murmur, no gallop. RESPIRATORY SYSTEM: Normal AP diameter. No accessory muscle use. No wheezing, no crackles. ABDOMEN: Soft, bowel sounds present, nontender, no distention. CENTRAL NERVOUS SYSTEM: No facial droop. Speech is clear. Obeys simple commands. Moves extremities. EXTREMITIES: No edema, no erythema seen. Discharge Data Allergies Allergy/AdvReac Type Severity Reaction Status Date / Time amoxicillin [From Augmentin] Allergy angioedema Verified 01/17/23 14:05 clavulanic acid Allergy angioedema Verified 01/17/23 14:05 [From Augmentin] Consultations 01/17/23 14:49 ED Decision to Admit Stat Hospital Course (1) Hyperglycemia: (2) Necrotizing pancreatitis: (3) Hypertension: (4) Hyponatremia: (5) Uncontrolled diabetes mellitus with hyperglycemia: (6) BEN (acute kidney injury): Plan 62-year-old male who was recently hospitalized [06/26 to 08/28; about 78 days] with necrotizing pancreatitis developed DM 2 between discharge in August 2022 and now. A1c of 12.2 on 12/22. Did not have any nausea/vomiting/epigastric pain or active signs of pancreatitis at presentation. Lipase level was elevated at 293 but down trended next day. He was managed for the following: New onset Diabetes CO2 hyponatremia: Diabetes likely secondary to history of necrotizing pancreatitis Glucose 467 in ED; received 6 Units of SQ Insulin in ED, glucose responded nicely. Admitting lipase 293; No transaminitis. Lipase trended down next day. Admitting Na+ 127. Corrected Sodium 133 FSBS ACHS with SSI, glycemic consult, public health educator consult. Sodium levels normalized. Patient will be discharged on 10 units of long-acting insulin daily and metformin 500 mg ER daily. Patient to maintain close follow-up with diabetic clinic and establish with rolled seat trimmer. His diabetic medication will need up titration and he will need repeat A1c in 3 months time. Patient is aware of this. museum educator consult appreciated. Counseled patient in detail regarding need for lifestyle modification/regular exercise regimen/long-term follow-up for diabetic management with diabetic clinic/annual screening test related to diabetic care. H/O Necrotizing Pancreatitis: Was transferred from here to [place] 06/26 with necrotizing pancreatitis s/p pigtail catheter that fell out and required IR intervention. He had a complicated course including ascites, peritonitis with enterococcus s/p abx. and led to a 78 day inpatient hospitalization. Follows as an outpatient with GI Admitting lipase 293; trended down next day; do not suspect any acute pancreatitis HTN: Takes Metoprolol; continue Disposition: PCP: Dr. Schultz Code Status: Full Code VTE Prophylaxis: Lovenox SQ Patient being discharged home with following instruction at the point of discharge: Follow-up with your primary care physician within a week time and likely you will need labs CBC/CMP/magnesium/phosphorus. Establish and follow-up with diabetic clinic closely for long-term management of your diabetes. Establish and follow-up with rolled seat trimmer upon discharge. Follow-up lifestyle modification/exercise regimen/medication adherence/finger glucose check as discussed by your public health educator. For your new onset diabetes, you are being started on metformin ER 500 Mg daily and insulin Lantus 10 units daily. Your metformin dose will need up titration, you will need to follow-up with your diabetic clinic. You will need A1c repeated in 3 months time upon discharge, coordinate with your diabetic clinic. Please make sure that you are able to get your medications today by calling your pharmacy before you leave the hospital so that your treatment continuity is not broken. Home Health Attestation I certify that this patient is under my care and that I, or a physicians purchasing assistant working with me, had a face to-face encounter that meets the home health [id number] encounter requirements with this patient. The encounter with the patient was in whole, or in part, for the following medical condition, which is the primary reason for home health care (list medical condition): I certify that, based on my findings, the following services are medically necessary home health services: My clinical findings support the need for the above services because: Further, I certify that my clinical findings support that this patient is homebound (i.e. absences from home require considerable and taxing effort and are for medical reasons or pentecost[employer] services or infrequently or of short duration when for other reasons) because: Certification for Home Health Services: Based on the above findings, I certify that this patient is confined to the home and needs intermittent snf care, physical therapy and/or speech therapy or continues to need occupational therapy. The patient is under my care, and I have initiated the establishment of the plan of care. This patient will be followed by a physician who will periodically review the plan of care. Total Time Total Time Spent Total Time Spent (In Minutes): 50 Discharge Plan Discharge Items Patient Disposition: Home - Self-Care Reason For Visit: CELLULITIS Discharge Diagnosis: New onset diabetes Pseudo hyponatremia History of necrotizing pancreatitis Activity: Resume your previous activity Non-emergency contact: Primary Care Provider Follow-up/Referrals: Jerome Schultz DO [Primary Care Provider] - (Date & Time 01/26/2023 1:40 PM Provider Jerome Schultz DO Department [facility] ) Diet: Carb Consistent or DM2 Addtl Attending Provider Instructions: Follow-up with your primary care physician within a week time and likely you will need labs CBC/CMP/magnesium/phosphorus. Establish and follow-up with diabetic clinic closely for long-term management of your diabetes. Establish and follow-up with rolled seat trimmer upon discharge. Follow-up lifestyle modification/exercise regimen/medication adherence/finger glucose check as discussed by your public health educator. For your new onset diabetes, you are being started on metformin ER 500 Mg daily and insulin Lantus 10 units daily. Your metformin dose will need up titration, you will need to follow-up with your diabetic clinic. You will need A1c repeated in 3 months time upon discharge, coordinate with your diabetic clinic. Please make sure that you are able to get your medications today by calling your pharmacy before you leave the hospital so that your treatment continuity is not broken. Pending Studies at Discharge: No Stand-Alone Forms: My [employer], Smoking Cessation Medications and DC Order Prescriptions: New metformin 500 mg tablet extended release 24 hr 500 mg PO DAILY Qty: 30 0RF insulin glargine 100 unit/mL (3 mL) insulin pen 10 unit subcut DAILY Qty: 15 0RF (DME) pen needle, diabetic [Pen Needle] 32 gauge x 5/32" needle See Rx Instructions .Route Qty: 100 0RF Rx Instructions: once a day Continued cyclobenzaprine 10 mg tablet 10 mg PO TID PRN (Reason: Muscle Pain) acetaminophen [Tylenol] 325 mg Tablet 650 mg PO QID PRN (Reason: Pain) metoprolol succinate 50 mg tablet extended release 24 hr 25 mg PO DAILY Discharge Orders: Discharge Order (Routine); Ordered 01/19/23 Ordered By: Abbey Sandoval Admission Data Admit Date/Time: 01/17/23 15:50 Attending Provider: Abbey Sandoval Admit Provider: Maribell Valadez Primary Care Provider: Jerome Schultz Other Providers: Maribell Valadez
== END 2023-01-19 14:51 | disposition home or self-care (01) | DRG 439 ==
LOC: ED 11:04 → SUATTDRO 15:50 → 2S 15:50